=== PATIENT | female | born 1945 | race Caucasian/White ===

== ENCOUNTER 2019-04-17 17:30 | Emergency (ER) | payer MEDICARE, OTHER ==
--- NOTE | 2019-04-17 17:45 | EDM.PDOC ---
ED HPI GENERAL MEDICAL PROBLEM - General Chief Complaint: Lower Extremity Injury/Pain Stated Complaint: fall/laceration Time Seen by Provider: 04/17/19 17:30 Source of Information: Reports: Patient, EMS History Limitations: Reports: No Limitations - History of Present Illness INITIAL COMMENTS - FREE TEXT/NARRATIVE: She comes into the emergency department via with complaint of a laceration to her left knee. Patient [place] [employer] and fell on the ice causing a laceration to left knee. She did have knee replacement completed 4 weeks ago and the laceration is directly over the the suture incision of her knee replacement. Patient denies any pain, numbness or tingling, or range of motion concerns. Patient denies hitting her head or any other injuries. The patient is concerned regarding the laceration and bleeding that has occurred since the fall. Patient did last eat approximately 30 minutes ago. Patient denies any chest pain, shortness of breath, CMS concern, range of motion concerns, abdominal pain, or peripheral edema. Onset: Sudden Improves with: Reports: None Worsens with: Reports: None Context: Reports: Other Associated Symptoms: Reports: No Other Symptoms - Related Data Allergies Allergy/AdvReac Type Severity Reaction Status Date / Time No Known Allergies Allergy Verified 04/17/19 18:19 Past Medical History HEENT History: Reports: Impaired Vision Cardiovascular History: Reports: Hypertension Endocrine/Metabolic History: Reports: Diabetes, Type II - Past Surgical History Other Female Surgeries/Procedures: Bladder repair about 10 years ago Musculoskeletal Surgical History: Reports: Arthroscopic Knee ED ROS GENERAL - Review of Systems Review Of Systems: Comprehensive ROS is negative, except as noted in HPI. Constitutional: Reports: No Symptoms HEENT: Reports: No Symptoms Respiratory: Reports: No Symptoms Cardiovascular: Reports: No Symptoms Endocrine: Reports: No Symptoms GI/Abdominal: Reports: No Symptoms : Reports: No Symptoms Musculoskeletal: Reports: No Symptoms Neurological: Reports: No Symptoms Psychiatric: Reports: No Symptoms Hematologic/Lymphatic: Reports: No Symptoms Immunologic: Reports: No Symptoms ED EXAM, GENERAL - Physical Exam Exam: See Below Exam Limited By: No Limitations General Appearance: Alert, WD/WN, No Apparent Distress Head: Atraumatic, Normocephalic Neck: Normal Inspection, Supple, Non-Tender, Full Range of Motion Respiratory/Chest: No Respiratory Distress, Lungs Clear, No Accessory Muscle Use , Chest Non-Tender Cardiovascular: Normal Peripheral Pulses, Regular Rate, Rhythm, No Edema Extremities: Normal Inspection, Normal Range of Motion, Normal Capillary Refill Neurological: Alert, Oriented, No Motor/Sensory Deficits Psychiatric: Normal Affect, Normal Mood Skin Exam: Warm, Normal Color, Wound/Incision (3 inch deep tissue laceration with blood clot formation noted- no hardware is visable. CMS intact, ROM intact. ) ED GENERAL MEDICAL PROCEDURES - Laceration/Wound Repair Left Middle Knee Lac/wound length in cm: 7.6 Appearance: Muscle Distal NVT: Neuro & Vascular Intact, No Tendon Injury Anesthetic Type: Local Local Anesthesia - Lidocaine (Xylocaine): 1% with EPI Local Anesthetic Volume: 5cc Skin Prep: Saline Exploration/Debridement/Repair: Wound Explored, Explored to Base Closed with: Sutures Suture Size: 3-0 # of Sutures: 15 Suture Type: Simple Drain Placement: No Sterile Dressing Applied: Nurse Tetanus Status Addressed: Yes Complications: Yes Course - Vital Signs Last Recorded V/S: Last Vital Signs Temp 35.7 C 04/17/19 17:30 Pulse 87 04/17/19 17:30 Resp 18 04/17/19 17:30 BP 144/70 H 04/17/19 17:30 Pulse Ox 97 04/17/19 17:30 - Orders/Labs/Meds Orders: Active Orders 24 hr Category Date Time Status Knee 1V or 2V Lt [CR] Stat Exams 04/17/19 17:56 Taken Meds: Medications Discontinued Medications Generic Name Dose Route Start Last Admin Trade Name Wolf PRN Reason Stop Dose Admin Lidocaine/Epinephrine 20 ml 04/17/19 18:01 04/17/19 18:10 Xylocaine 1% With Epinephrine 1:100,000 INFILT 04/17/19 18:02 20 ml ONETIME STA Administration Departure - Departure Time of Disposition: 19:20 Disposition: Home, Self-Care 01 Condition: Good Clinical Impression: Laceration - Discharge Information *PRESCRIPTION DRUG MONITORING PROGRAM REVIEWED*: Not Applicable *COPY OF PRESCRIPTION DRUG MONITORING REPORT IN PATIENT NANCY: Not Applicable Instructions: Laceration Care, Adult, RICE Therapy for Routine Care of Injuries , [id number] Forms: ED Department Discharge Additional Instructions: 1. rest 2. elevated the extremity above the level of the heart 3. OTC medications as needed for pain and discomfort 4. keep the christiana wrap on to help with compression and decrease swelling 5. Follow up with Dr. Fox office Saturday or Saturday 6. Call with any questions or concerns 7. Return or present to [place] if symptoms progress or worsen Sepsis Event Note - Focused Exam Vital Signs: Vital Signs Temp Pulse Resp BP Pulse Ox 04/17/19 17:30 35.7 C 87 18 144/70 H 97 Date Exam was Performed: 04/17/19 Time Exam was Performed: 19:17 - Problem List Review Problem List Initiated/Reviewed/Updated: Yes - My Orders Last 24 Hours: My Active Orders 04/17/19 17:56 Knee 1V or 2V Lt [CR] Stat - Assessment/Plan Last 24 Hours: My Active Orders 04/17/19 17:56 Knee 1V or 2V Lt [CR] Stat Assessment:: 1. laceration left knee Plan: 1. Phone consultation completed with Dr. Fox who was the patient's surgeon who completed the surgery about 4 weeks ago. Recommendation after reviewing the surgical incision photo his recommendation was to place simple sutures to close the wound. If hardware was visible to contact him immediately 2. Wound base explored and no hardware is visible. No debri noted 3. Sutures completed 4. wound covering completed 5. Follow up instructions given to the patient to follow up with Dr. Taylor office Saturday or Saturday 6. She was advised to return to emergency department or present the [place] emergency room if complications did arise over the weekend regarding a left knee 7. Education provided regarding ambulation, activity, diet, follow-up visit. 8. All questions and concerns were addressed prior to discharge
[2019-04-17] MEDS ORDERED: Lidocaine 1% with EPINEPHrine 1:100,000 20 ML MDV INFILT STA (18:01)
--- NOTE | 2019-04-17 19:25 | CR ---
[id number] RAD/RAD Knee Left 1-2V EXAM: 2 VIEWS LEFT KNEE. INDICATION: FALL COMPARISON: None. DISCUSSION: No fracture, dislocation or other acute osseous abnormality. Postsurgical changes following total left knee arthroplasty. No evidence of acute hardware failure or loosening. Small left knee joint effusion. IMPRESSION: 1. NO ACUTE OSSEOUS ABNORMALITIES. Geronimo Ivy DO 04/17/19 1923 Thank you for allowing us to participate in the care of your patient.
== END 2019-04-17 19:45 | disposition home or self-care (01) ==
LOC: VM.ED 17:30
DX: S81.012A Laceration without foreign body, left knee, initial encounter (principal); I10 Essential (primary) hypertension; E11.9 Type 2 diabetes mellitus without complications; W00.0XXA Fall on same level due to ice and snow, initial encounter
CPT/HCPCS: 12002; 12004; 73560-LT; 99283-25; 99283-GF

== ENCOUNTER 2019-05-04 08:58 | Observation (INO) | payer MEDICARE, OTHER ==
[2019-05-04] MEDS ORDERED: Sodium Chloride 0.9% 10 ML Syringe FLUSH PRN (09:14)
[2019-05-04] MEDS ORDERED: ceFAZolin 2 GM in Sodium Chloride 0.9% 100 ML IV ONE (09:21)
--- NOTE | 2019-05-04 09:32 | EDM.PDOC ---
ED HPI GENERAL MEDICAL PROBLEM - General Time Seen by Provider: 05/04/19 09:00 Source of Information: Reports: Patient History Limitations: Reports: No Limitations - History of Present Illness INITIAL COMMENTS - FREE TEXT/NARRATIVE: Pt. presents to ER with surgical site drainage, pain, and redness. Pt. underwent total knee replacement on 03/22/19. Approx. 1 month later she fell, causing a laceration to her L knee with subsequent quad tear with surgical repair on . She has been convalescing at home and has noticed increased redness and surgical site drainage/swelling. Denies any fever or chills. No increased fatigue. She is currently on oxycodone for pain control. Onset: Today Onset Date: 05/04/19 Location: Reports: Lower Extremity, Left Quality: Reports: Ache, Pressure Improves with: Reports: Rest Worsens with: Reports: Movement Associated Symptoms: Denies: Fever/Chills - Related Data Allergies Allergy/AdvReac Type Severity Reaction Status Date / Time No Known Allergies Allergy Verified 05/04/19 10:09 Home Meds: Home Meds Aspirin 81 mg PO DAILY 05/04/19 [History] Calcium Carbonate/Vitamin D3 [Calcium 600 + Vit D 200] 1 each PO BID 05/04/19 [ History] Clobetasol [Clobetasol Propionate 0.05%] 1 dose TOP BID PRN 05/04/19 [History] Docusate Sodium [Colace] 100 mg PO DAILY PRN 05/04/19 [History] Latanoprost 1 drop EYEBOTH BEDTIME 05/04/19 [History] Metoprolol Succinate [Toprol XL 100mg] 100 mg PO DAILY 05/04/19 [History] Ondansetron HCl [Ondansetron] 4 mg PO Q6H PRN 05/04/19 [History] Potassium Chloride [Klor-Con M20] 20 meq PO DAILY 05/04/19 [History] Timolol Maleate 1 drop EYEBOTH BID 05/04/19 [History] Valsartan/Hydrochlorothiazide [Valsartan-Hctz 320-25 mg Tab] 1 tab PO DAILY [History] atorvaSTATin [Lipitor] 20 mg PO BEDTIME 05/04/19 [History] metFORMIN HCl [Metformin HCl ER] 750 mg PO DAILY 05/04/19 [History] oxyCODONE 1 - 2 tab PO Q4H PRN 05/04/19 [History] rOPINIRole [Requip] 0.25 mg PO BID 05/04/19 [History] Past Medical History HEENT History: Reports: Impaired Vision Cardiovascular History: Reports: Hypertension Endocrine/Metabolic History: Reports: Diabetes, Type II - Past Surgical History Other Female Surgeries/Procedures: Bladder repair about 10 years ago Musculoskeletal Surgical History: Reports: Arthroscopic Knee ED ROS GENERAL - Review of Systems Review Of Systems: See Below Constitutional: Reports: No Symptoms HEENT: Reports: No Symptoms Respiratory: Reports: No Symptoms Cardiovascular: Reports: No Symptoms Endocrine: Reports: No Symptoms GI/Abdominal: Reports: No Symptoms : Reports: No Symptoms Musculoskeletal: Reports: Leg Pain Skin: Reports: Erythema, Other (discharge) Neurological: Reports: No Symptoms Psychiatric: Reports: No Symptoms Hematologic/Lymphatic: Reports: No Symptoms Immunologic: Reports: No Symptoms ED EXAM, GENERAL - Physical Exam Exam: See Below Exam Limited By: No Limitations General Appearance: Alert, WD/WN, No Apparent Distress Throat/Mouth: Normal Inspection, Normal Lips, Normal Teeth, Normal Gums, Normal Oropharynx, Normal Voice, No Airway Compromise Head: Atraumatic, Normocephalic Neck: Normal Inspection, Supple, Non-Tender, Full Range of Motion Respiratory/Chest: No Respiratory Distress, Lungs Clear, Normal Breath Sounds, No Accessory Muscle Use, Chest Non-Tender Cardiovascular: Normal Peripheral Pulses, Regular Rate, Rhythm, No Edema, No Gallop, No JVD, No Murmur GI/Abdominal: Normal Bowel Sounds, Soft, Non-Tender, No Organomegaly, No Distention, No Mass (Female) Exam: Deferred Rectal (Female) Exam: Deferred Back Exam: Normal Inspection, Full Range of Motion Extremities: Leg Pain, Redness, Other (surgical incision with rody running vertically down mid leg/knee with purulent discharge. Surrounding cellulitis.) Neurological: Alert, Oriented, CN II-XII Intact, No Motor/Sensory Deficits Psychiatric: Normal Affect, Normal Mood Skin Exam: Warm, Dry, Other (see above) Course - Vital Signs Last Recorded V/S: Last Vital Signs Temp 37.3 C 05/04/19 09:00 Pulse 95 05/04/19 09:00 Resp 16 05/04/19 09:00 BP 113/48 L 05/04/19 09:00 Pulse Ox 97 05/04/19 09:00 - Orders/Labs/Meds Orders: Active Orders 24 hr Category Date Time Status Patient Status [ADT] Routine ADT 05/04/19 10:40 Active CULTURE BLOOD [BC] Stat Lab 05/04/19 09:28 Received CULTURE BLOOD [BC] Stat Lab 05/04/19 09:33 Received CULTURE WOUND + SMEAR [RM] Stat Lab 05/04/19 09:10 Results Sodium Chloride 0.9% [Saline Flush] Med 05/04/19 09:14 Active 10 ml FLUSH ASDIRECTED PRN Vancomycin 1.5 gm Med 05/04/19 10:45 Active Sodium Chloride 0.9% [Normal Saline (AdvBag)] 250 ml IV STAT Blood Culture x2 Reflex Set [OM.PC] Stat Oth 05/04/19 09:15 Ordered Peripheral IV Insertion Adult [OM.PC] Routine Oth 05/04/19 09:15 Ordered Medication Orders Vancomycin HCl 1.5 gm/ Sodium (Chloride) 250 mls @ 165 mls/hr IV STAT ONE Stop: 05/04/19 12:15 Sodium Chloride (Saline Flush) 10 ml FLUSH ASDIRECTED PRN PRN Reason: Keep Vein Open Labs: Laboratory Tests 05/04/19 05/04/19 05/04/19 Range/Units 09:28 09:28 09:28 WBC 14.2 H (4.0-10.0) x10^3/uL RBC 3.00 L (4.00-5.50) x10^6/uL Hgb 8.7 L (12.0-16.0) g/dL Hct 26.3 L (33.0-47.0) % MCV 87.7 (78.0-93.0) fL MCH 29.0 (26.0-32.0) pg MCHC 33.1 (32.0-36.0) g/dL RDW Coeff of Candy 13.2 (10.0-15.0) % Plt Count 552 H (130-400) x10^3/uL Add Manual Diff Yes Neutrophils % (Manual) 76 (50-80) % Band Neutrophils % 6 (0-6) % Lymphocytes % (Manual) 7 L (25-50) % Monocytes % (Manual) 8 (2-11) % Eosinophils % (Manual) 3 (0-4) % Platelet Estimate Increased H Polychromasia Rare Acanthocytes (Spur) 1+ slight H PT 11.2 (10.0-12.8) SEC INR 1.0 L (2.0-3.5) Sodium 131 L (136-145) mmol/L Potassium 3.8 (3.5-5.1) mmol/L Chloride 96 L (98-107) mmol/L Carbon Dioxide 25 (21-32) mmol/L Anion Gap 13.8 (10-20) mmol/L BUN 20 H (7-18) mg/dL Creatinine 0.9 (0.55-1.02) mg/dL Est Cr Clr Drug Dosing 46.05 mL/min Estimated GFR (MDRD) > 60 Glucose 269 H (74-106) mg/dL Lactic Acid (0.4-2.0) mmol/L Calcium 8.6 (8.5-10.1) mg/dL Corrected Calcium 9.88 (8.5-10.1) mg/dL Magnesium 1.7 L (1.8-2.4) mg/dL Total Bilirubin 0.4 (0.2-1.0) mg/dL AST 19 (15-37) U/L ALT 34 (14-59) U/L Alkaline Phosphatase 92 (46-116) U/L C-Reactive Protein 7.9 H (<=0.9) mg/dL Total Protein 6.7 (6.4-8.2) g/dL Albumin 2.4 L (3.4-5.0) g/dL Globulin 4.3 Albumin/Globulin Ratio 0.56 05/04/19 Range/Units 09:28 WBC (4.0-10.0) x10^3/uL RBC (4.00-5.50) x10^6/uL Hgb (12.0-16.0) g/dL Hct (33.0-47.0) % MCV (78.0-93.0) fL MCH (26.0-32.0) pg MCHC (32.0-36.0) g/dL RDW Coeff of Candy (10.0-15.0) % Plt Count (130-400) x10^3/uL Add Manual Diff Neutrophils % (Manual) (50-80) % Band Neutrophils % (0-6) % Lymphocytes % (Manual) (25-50) % Monocytes % (Manual) (2-11) % Eosinophils % (Manual) (0-4) % Platelet Estimate Polychromasia Acanthocytes (Spur) PT (10.0-12.8) SEC INR (2.0-3.5) Sodium (136-145) mmol/L Potassium (3.5-5.1) mmol/L Chloride (98-107) mmol/L Carbon Dioxide (21-32) mmol/L Anion Gap (10-20) mmol/L BUN (7-18) mg/dL Creatinine (0.55-1.02) mg/dL Est Cr Clr Drug Dosing mL/min Estimated GFR (MDRD) Glucose (74-106) mg/dL Lactic Acid 1.4 (0.4-2.0) mmol/L Calcium (8.5-10.1) mg/dL Corrected Calcium (8.5-10.1) mg/dL Magnesium (1.8-2.4) mg/dL Total Bilirubin (0.2-1.0) mg/dL AST (15-37) U/L ALT (14-59) U/L Alkaline Phosphatase (46-116) U/L C-Reactive Protein (<=0.9) mg/dL Total Protein (6.4-8.2) g/dL Albumin (3.4-5.0) g/dL Globulin Albumin/Globulin Ratio Meds: Medications Generic Name Dose Route Start Last Admin Trade Name Freq PRN Reason Stop Dose Admin Vancomycin HCl 1.5 gm/ Sodium 250 mls @ 165 mls/hr 05/04/19 10:45 Chloride IV 05/04/19 12:15 STAT ONE Sodium Chloride 10 ml 05/04/19 09:14 Saline Flush FLUSH ASDIRECTED PRN Keep Vein Open Discontinued Medications Generic Name Dose Route Start Last Admin Trade Name Freq PRN Reason Stop Dose Admin Cefazolin Sodium Confirm 05/04/19 09:38 05/04/19 10:49 Ancef Administered 05/04/19 09:39 Not Given Dose 1 gm .ROUTE .STK-MED ONE Cefazolin Sodium 2 gm/ Sodium 100 mls @ 400 mls/hr 05/04/19 09:21 05/04/19 09 :43 Chloride IV 05/04/19 09:35 400 mls/hr ONETIME ONE Administration Ondansetron HCl 4 mg 05/04/19 10:31 05/04/19 10:42 Zofran IVPUSH 05/04/19 10:32 4 mg ONETIME ONE Administration - Radiology Interpretation Free Text/Narrative:: There is air seen in the soft tissues of the knee x-ray. Prosthesis is intact. No other acute findings reported. Departure - Departure Time of Disposition: 10:51 Disposition: Refer to Observation Clinical Impression: Surgical site infection - Discharge Information Sepsis Event Note - Focused Exam Vital Signs: Vital Signs Temp Pulse Resp BP Pulse Ox 05/04/19 09:00 37.3 C 95 16 113/48 L 97 Date Exam was Performed: 05/04/19 Time Exam was Performed: 10:51 - My Orders Last 24 Hours: My Active Orders 05/04/19 09:10 CULTURE WOUND + SMEAR [RM] Stat 05/04/19 09:14 Sodium Chloride 0.9% [Saline Flush] 10 ml FLUSH ASDIRECTED PRN 05/04/19 09:15 Blood Culture x2 Reflex Set [OM.PC] Stat Peripheral IV Insertion Adult [OM.PC] Routine 05/04/19 09:28 CULTURE BLOOD [BC] Stat 05/04/19 09:33 CULTURE BLOOD [BC] Stat 05/04/19 10:40 Patient Status [ADT] Routine 05/04/19 10:45 Vancomycin 1.5 gm Sodium Chloride 0.9% [Normal Saline (AdvBag)] 250 ml IV STAT - Assessment/Plan Admission H&P: Please use this note as an admission H&P Last 24 Hours: My Active Orders 05/04/19 09:10 CULTURE WOUND + SMEAR [RM] Stat 05/04/19 09:14 Sodium Chloride 0.9% [Saline Flush] 10 ml FLUSH ASDIRECTED PRN 05/04/19 09:15 Blood Culture x2 Reflex Set [OM.PC] Stat Peripheral IV Insertion Adult [OM.PC] Routine 05/04/19 09:28 CULTURE BLOOD [BC] Stat 05/04/19 09:33 CULTURE BLOOD [BC] Stat 05/04/19 10:40 Patient Status [ADT] Routine 05/04/19 10:45 Vancomycin 1.5 gm Sodium Chloride 0.9% [Normal Saline (AdvBag)] 250 ml IV STAT Plan: Pt. will be admitted observation. She is code one. Pt. was given 2 gm of ancef IV in ER. She will also receive vancomycin 1.5gm IV on admit. I did discuss findings with Dr. Fox at [facility]. Will transfer the patient to [facility] [place] due to weather[place] Continue oxycodone for pain control.
[2019-05-04] MEDS ORDERED: ceFAZolin 1 GM Vial ONE (09:38)
--- NOTE | 2019-05-04 10:01 | CR ---
[id number] RAD/RAD Knee Left 1-2V EXAM: RAD Knee Left 1-2V CLINICAL DATA: SURGICAL SITE INFECTION COMPARISON: CORRELATION IS MADE WITH THE EXAM OF APRIL 17, 2019 FINDINGS: Skin rody are seen Air is seen in the soft tissues The prosthesis appears intact. IMPRESSION: INTERVAL SURGERY SINCE LAST EXAM Nile Willingham MD 05/04/19 1000 Thank you for allowing us to participate in the care of your patient.
[2019-05-04 10:08] LABS: ANION GAP 13.8 mmol/L (10-20); CHLORIDE,CL 96 mmol/L (98-107); SODIUM,NA 131 mmol/L (136-145)
[2019-05-04] MEDS ORDERED: Ondansetron 4 MG/2 ML SDV IVPUSH ONE (10:31)
[2019-05-04] MEDS ORDERED: Docusate Sodium 100 MG Cap PO PRN (11:14)
[2019-05-04] MEDS ORDERED: oxyCODONE 5 MG Tab PO PRN (11:14)
[2019-05-04] MEDS ORDERED: Aspirin 81 MG Tab.Chew PO SCH (11:15)
[2019-05-04] MEDS ORDERED: Losartan 50 MG Tab PO SCH (12:00)
[2019-05-04] MEDS ORDERED: Hydrochlorothiazide 25 MG Tab PO SCH (12:00)
[2019-05-04] MEDS ORDERED: Metoprolol Succinate 50 MG Tab.ER PO SCH (12:00)
[2019-05-04] MEDS ORDERED: Potassium Chloride 20 MEQ Tab.ER PO SCH (12:00)
[2019-05-04] MEDS ORDERED: rOPINIRole 0.5 MG Tab PO SCH (12:00)
[2019-05-04] MEDS ORDERED: metFORMIN 500 MG Tab PO SCH ×2 (12:00→12:04)
[2019-05-04] MEDS ORDERED: Ibuprofen 200 MG Tab PO ONE (13:04)
[2019-05-04] MEDS ORDERED: Latanoprost 0.005% Ophth Soln 2.5 ML Bottle EYEBOTH SCH (20:00)
[2019-05-05] MEDS ORDERED: atorvaSTATin 10 MG Tab PO SCH (20:00)
--- NOTE | 2019-05-07 00:58 | PCM.DCSUM1 ---
Discharge Summary - Hospital Course HPI Initial Comments: Pt. was admitted briefly to the floor for surgical site infection. Pt. was transferred to [facility] to be treated by Dr. Fox. Please refer to the patient's admission H and P as there was no changes to care between admission and transfer. - Discharge Data Discharge Date: 05/07/19 Discharge Disposition: DC/Tfer to Acute Hospital 02 Condition: Good - Referral to Home Health Primary Care Physician: Agnes Hairston NP - Discharge Plan Home Medications: Home Meds Aspirin 81 mg PO DAILY 05/04/19 [History] Calcium Carbonate/Vitamin D3 [Calcium 600 + Vit D 200] 1 each PO BID 05/04/19 [ History] Docusate Sodium [Colace] 100 mg PO DAILY PRN 05/04/19 [History] Gabapentin [Neurontin] 200 mg PO TID 05/04/19 [History] Latanoprost 1 drop EYEBOTH BEDTIME 05/04/19 [History] Metoprolol Succinate [Toprol XL 100mg] 100 mg PO DAILY 05/04/19 [History] Ondansetron HCl [Ondansetron] 4 mg PO Q6H PRN 05/04/19 [History] Ondansetron [Zofran ODT] 4 mg PO Q6HR PRN 05/04/19 [History] Potassium Chloride [Klor-Con M20] 20 meq PO DAILY 05/04/19 [History] Timolol Maleate 1 drop EYEBOTH BID 05/04/19 [History] Valsartan/Hydrochlorothiazide [Valsartan-Hctz 320-25 mg Tab] 1 tab PO DAILY [History] atorvaSTATin Calcium [Lipitor] 20 mg PO BEDTIME 05/04/19 [History] metFORMIN HCl [Metformin HCl ER] 750 mg PO DAILY 05/04/19 [History] oxyCODONE 1 - 2 tab PO Q4H PRN 05/04/19 [History] rOPINIRole [Requip] 0.25 mg PO BID 05/04/19 [History] Forms: Interfacility Transfer EMTALA Referrals: Agnes Hairston, [facility] [Primary Care Provider] - - Discharge Summary/Plan Comment DC Time >30 min.: Yes - General Info Date of Service: 05/04/19 Functional Status: Reports: Pain Controlled - Review of Systems General: Reports: No Symptoms HEENT: Reports: No Symptoms Pulmonary: Reports: No Symptoms Cardiovascular: Reports: No Symptoms Gastrointestinal: Reports: No Symptoms Genitourinary: Reports: No Symptoms Musculoskeletal: Reports: Leg Pain Skin: Reports: No Symptoms Neurological: Reports: No Symptoms Psychiatric: Reports: No Symptoms - Patient Data Vitals - Most Recent: Last Vital Signs Temp 36.7 C 05/04/19 14:00 Pulse 83 05/04/19 14:00 Resp 20 05/04/19 14:00 BP 130/54 L 05/04/19 14:00 Pulse Ox 98 05/04/19 14:00 Weight - Most Recent: 92.533 kg CADY Results - Last 24 hrs: Microbiology 05/04/19 09:33 Aerobic Blood Culture - Preliminary Blood - Venous - Lab Draw NO GROWTH AFTER 2 DAYS Anaerobic Blood Culture - Preliminary NO GROWTH AFTER 2 DAYS 05/04/19 09:28 Aerobic Blood Culture - Preliminary Blood - Venous NO GROWTH AFTER 2 DAYS Anaerobic Blood Culture - Preliminary NO GROWTH AFTER 2 DAYS 05/04/19 09:10 Gram Stain - Final Skin / Skin Scrapings - Knee, Left Wound Culture - Preliminary Staphylococcus Aureus Med Orders - Current: Current Medications Discontinued Medications Aspirin (Aspirin) 81 mg PO DAILY [facility] Last Admin: 05/04/19 12:19 Dose: 81 mg Atorvastatin Calcium (Lipitor) 20 mg PO BEDTIME [facility] Cefazolin Sodium (Ancef) Confirm Administered Dose 1 gm .ROUTE .STK-MED ONE Stop: 05/04/19 09:39 Last Admin: 05/04/19 10:49 Dose: Not Given Docusate Sodium (Colace) 100 mg PO DAILY PRN PRN Reason: Constipation Hydrochlorothiazide (Hydrochlorothiazide) 25 mg PO DAILY [facility] Last Admin: 05/04/19 12:23 Dose: 25 mg Cefazolin Sodium 2 gm/ Sodium (Chloride) 100 mls @ 400 mls/hr IV ONETIME ONE Stop: 05/04/19 09:35 Last Admin: 05/04/19 09:43 Dose: 400 mls/hr Vancomycin HCl 1.5 gm/ Sodium (Chloride) 250 mls @ 165 mls/hr IV STAT ONE Stop: 05/04/19 12:15 Last Admin: 05/04/19 11:15 Dose: 165 mls/hr Ibuprofen (Motrin) 600 mg PO ONETIME ONE Stop: 05/04/19 13:05 Last Admin: 05/04/19 13:21 Dose: Not Given Latanoprost (Xalatan 0.005% Ophth Soln) 0 ml EYEBOTH BEDTIME [facility] Losartan Potassium (Cozaar) 150 mg PO DAILY [facility] Last Admin: 05/04/19 12:20 Dose: 150 mg Metformin HCl (Glucophage) 375 mg PO BIDMEALS [facility] Last Admin: 05/04/19 12:25 Dose: Not Given Metformin HCl (Glucophage) 500 mg PO BIDMEALS [facility] Last Admin: 05/04/19 12:24 Dose: 500 mg Metoprolol Succinate (Toprol Xl) 100 mg PO DAILY [facility] Last Admin: 05/04/19 12:23 Dose: 100 mg Ondansetron HCl (Zofran) 4 mg IVPUSH ONETIME ONE Stop: 05/04/19 10:32 Last Admin: 05/04/19 10:42 Dose: 4 mg Oxycodone HCl (Oxycodone) 5 - 10 mg PO Q4H PRN PRN Reason: Pain Last Admin: 05/04/19 13:21 Dose: 5 mg Potassium Chloride (Klor-Con M20) 20 meq PO DAILY [facility] Last Admin: 05/04/19 12:23 Dose: 20 meq Ropinirole HCl (Requip) 0.25 mg PO BID [facility] Last Admin: 05/04/19 12:23 Dose: 0.25 mg Sodium Chloride (Saline Flush) 10 ml FLUSH ASDIRECTED PRN PRN Reason: Keep Vein Open - Exam General: Reports: Alert, Oriented HEENT: Reports: Pupils Equal, Pupils Reactive, EOMI, Mucous Membr. Moist/[place] Neck: Reports: Supple Lungs: Reports: Clear to Auscultation, Normal Respiratory Effort Cardiovascular: Reports: Regular Rate, Regular Rhythm Skin: Reports: Warm, Dry, Intact Wound/Incisions: Reports: Healing Well Neurological: Reports: No New Focal Deficit Psy/Mental Status: Reports: Alert, Normal Affect, Normal Mood
== END 2019-05-04 15:19 | disposition short-term general hospital (02) ==
LOC: VM.ED 08:58 → VM.MS 10:40
PROVIDERS: ADMIT Physician Assistant; ATTEND Physician Assistant
DX: T81.41XA Infection following a procedure, superficial incisional surgical site, initial encounter (principal); I10 Essential (primary) hypertension; E11.9 Type 2 diabetes mellitus without complications
CPT/HCPCS: 36415; 73560-LT; 80053; 82962; 83605; 83735; 85025; 85610; 86140; 87040; 87070; 87077; 87205; A9270-GY; J0690; J2405; J3370; J7050

== ENCOUNTER 2019-05-08 12:33 | Inpatient (IN) | payer MEDICARE, OTHER ==
[2019-05-08] MEDS ORDERED: Clobetasol 0.05% Crm 30 GM Tube TOP PRN (14:50)
[2019-05-08] MEDS ORDERED: CEFAZOLIN SODIUM IV SCH (16:00)
[2019-05-08] MEDS ORDERED: [UNRECOGNIZED DRUG - OTHER] IV SCH (16:00)
[2019-05-08] MEDS ORDERED: WATER IV SCH (16:00)
[2019-05-08] MEDS: Sodium Chloride 0.9% 10 ML Syringe IV SCH (16:41)
[2019-05-08] MEDS: Heparin Sodium 100 Units/ML 3 ML Syringe IVPUSH SCH (16:41)
[2019-05-08] MEDS: ceFAZolin 1 GM Vial IVPUSH SCH (16:41)
[2019-05-08] MEDS: oxyCODONE 5 MG Tab PO PRN (18:19)
[2019-05-08] MEDS: Calcium Carbonate/Vitamin D3 1250 MG-200 Unit Tab PO SCH (18:19)
[2019-05-08] MEDS: Celecoxib 100 MG Cap PO SCH (18:19)
[2019-05-08] MEDS: Acetaminophen 325 MG Tab PO PRN (18:22)
[2019-05-08] MEDS: Docusate Sodium 100 MG Cap PO SCH (19:46)
[2019-05-08] MEDS: atorvaSTATin 10 MG Tab PO SCH (19:46)
[2019-05-08] MEDS: rOPINIRole 0.5 MG Tab PO SCH (19:46)
[2019-05-08] MEDS: Aspirin 81 MG Tab.EC PO SCH (19:46)
[2019-05-08] MEDS: Metoprolol Tartrate 25 MG Tab PO SCH (19:47)
--- NOTE | 2019-05-08 20:04 | HP ---
CHIEF COMPLAINT: 1. Weakness and deconditioning. 2. Left knee pain. 3. Left knee infection. 4. History of total knee arthroplasty, left. HISTORY OF PRESENT ILLNESS: Gauri is a very pleasant 73-year-old woman who presents to the swing bed unit at [facility] for ongoing rehab secondary to weakness and deconditioning. The patient originally had a total left knee replacement for severe osteoarthritis on 03/24/2019 at [facility] per Dr. Fox. The patient did do well postoperatively, however, in mid April, she sustained a mechanical fall and required repair of her quadriceps tendon on 04/21/2019. The patient had increasing drainage from her incision site, which she had described as a yellow/green color. She also had unusual amounts of pain. There apparently was a concern for deeper infection aside from the obvious superficial incisional infection. The patient underwent I and D of the left knee as well as a quadriceps tendon repair per Dr. Fox on 05/05/2019. The patient had a wound VAC placed. The patient had a PICC line placed on 05/07/2019 for IV antibiotics, which were medically necessary due to her postop infection. The patient does not offer any specific complaints upon admission. The patient denies any pain. The patient feels that things are going well. The patient has not had any shortness of breath or chest pain. The patient is able to pivot on 1 foot. She does need to use a brace when she is ambulating. PAST MEDICAL HISTORY: 1. Arthritis. 2. Ansari cyst. 3. Diabetes mellitus. 4. Hypertension. 5. Osteoarthritis. 6. Obesity. ACTIVE PROBLEM LIST: 1. Vitreous degeneration. 2. Myopia. 3. Presbyopia. 4. Open-angle glaucoma. 5. Classical migraine. 6. Diabetes mellitus. 7. Hypertension secondary to diabetes. 8. Esophageal reflux. 9. Hyperlipidemia associated with type 2 diabetes. 10.Restless legs. 11.Right carpal tunnel syndrome. 12.Stress incontinence. 13.Quadriceps tendon rupture. 14.Wound infection post surgery. SURGICAL HISTORY: 1. Carpal tunnel release. 2. Joint replacement. 3. Right knee scope. ALLERGIES: No known allergies. SOCIAL HISTORY: The patient is . The patient does not smoke cigarettes. The patient does not consume any alcohol. FAMILY HISTORY: Noncontributory. MEDICATIONS: 1. Acetaminophen 650 mg 1 tablet p.o. every 6 hours as needed. 2. Aspirin 81 mg 1 tablet p.o. twice daily. 3. Atorvastatin 20 mg 1 tablet p.o. daily. 4. Calcium carbonate 1 tablet p.o. twice daily. 5. Cefazolin sodium 2000 mg IV every 8 hours. 6. Celebrex 200 mg 1 tablet p.o. twice daily. 7. Clobetasol 1 application topical twice daily as needed. 8. Cyclobenzaprine 10 mg 1 tablet p.o. every 8 hours as needed. 9. Docusate sodium 100 mg 1 tablet p.o. twice daily. 10.Ferrous sulfate 325 mg 1 tablet p.o. daily. 11.Hydrochlorothiazide 25 mg 1 tablet p.o. daily. 12.Latanoprost 1 drop to both eyes at bedtime. 13.Metformin 750 mg 1 tablet p.o. daily. 14.Metoprolol 12.5 mg 1 tablet p.o. twice daily. 15.Zofran 4 mg 1 tablet p.o. every 6 hours as needed. 16.Oxycodone 5 to 10 mg 1 tablet p.o. every 6 hours. 17.Potassium chloride 40 mEq 1 tablet p.o. daily. 18.Ropinirole 0.25 mg 1 tablet p.o. twice daily. 19.Timolol maleate 1 drop to both eyes twice daily. 20.Valsartan/hydrochlorothiazide 320 mg/25 mg 1 tablet p.o. daily. REVIEW OF SYSTEMS: General: Negative. Cardiac: Negative. Respiratory: Negative. GI: Negative. Musculoskeletal: See HPI. Neurologic: Negative. Skin: See HPI. PHYSICAL EXAMINATION: General: The patient is in no acute distress, the patient is cooperative, the patient is pleasant. Cardiac: Regular rate and rhythm. No murmur. Extremities: Radial pulses are +2 bilaterally. Dorsalis pedis pulse on the right is 2+. Respiratory: Clear bilaterally without wheezes, rales, or rhonchi. GI: Abdomen is soft, nontender. Bowel sounds active x4. Skin: No rashes or bruising. Musculoskeletal: Left lower extremity is immobilized at the knee. Neurologic: No gross focal deficits. ASSESSMENT: 1. Weakness. 2. Deconditioning. 3. Status post total knee arthroplasty, left. 4. Quadriceps tendon rupture. 5. Status post tendon repair. 6. Wound infection after surgery. 7. Diabetes mellitus. 8. Essential hypertension. PLAN: The patient will be admitted to the swing bed unit at [facility]. We will continue the patient on her current medications from home. The patient will have her pain controlled. We will ask Physical Therapy to see the patient to continue for rehab. Case Management will also be involved for discharge planning. The patient is a full code. DVT prophylaxis with twice daily aspirin therapy. The patient will be on a diabetic diet. The patient will be admitted for at least 30 days for IV antibiotics. This patient was seen and examined by me as an [facility] provider. TB: 05/08/2019 15:06:09 MODL: 05/08/2019 19:53:45 /[id number]
[2019-05-08] MEDS: TIMOLOL MALEATE 0.5% EYEBOTH SCH (20:24)
[2019-05-08] MEDS: LATANOPROST 0.005% EYEBOTH SCH (20:24)
[2019-05-09] MEDS: Cyclobenzaprine 10 MG Tab PO PRN ×2 (00:14→23:35)
[2019-05-09] MEDS: Sodium Chloride 0.9% 10 ML Syringe IV SCH ×4 (00:16→23:31)
[2019-05-09] MEDS: ceFAZolin 1 GM Vial IVPUSH SCH ×4 (00:16→23:32)
[2019-05-09] MEDS: Heparin Sodium 100 Units/ML 3 ML Syringe IVPUSH SCH ×4 (00:17→23:32)
[2019-05-09] MEDS: oxyCODONE 5 MG Tab PO PRN ×4 (00:32→23:33)
[2019-05-09] MEDS: Ondansetron 4 MG Tab.DIS PO PRN ×2 (08:15→18:41)
[2019-05-09] MEDS: Acetaminophen 325 MG Tab PO PRN ×3 (08:15→18:40)
[2019-05-09] MEDS: Potassium Chloride 20 MEQ Tab.ER PO SCH (08:16)
[2019-05-09] MEDS: Docusate Sodium 100 MG Cap PO SCH ×2 (08:16→19:34)
[2019-05-09] MEDS: Hydrochlorothiazide 25 MG Tab PO SCH (08:16)
[2019-05-09] MEDS: Aspirin 81 MG Tab.EC PO SCH ×2 (08:16→19:35)
[2019-05-09] MEDS: Losartan 50 MG Tab PO SCH (08:17)
[2019-05-09] MEDS: metFORMIN 500 MG Tab PO SCH ×2 (08:17→17:18)
[2019-05-09] MEDS: rOPINIRole 0.5 MG Tab PO SCH ×2 (08:17→19:35)
[2019-05-09] MEDS: Calcium Carbonate/Vitamin D3 1250 MG-200 Unit Tab PO SCH ×2 (08:17→17:18)
[2019-05-09] MEDS: Metoprolol Tartrate 25 MG Tab PO SCH ×2 (08:17→19:35)
[2019-05-09] MEDS: Celecoxib 100 MG Cap PO SCH ×2 (08:18→17:18)
[2019-05-09] MEDS: Ferrous Sulfate 325 MG Tab PO SCH (08:18)
[2019-05-09] MEDS: TIMOLOL MALEATE 0.5% EYEBOTH SCH ×2 (08:18→20:55)
[2019-05-09] MEDS: atorvaSTATin 10 MG Tab PO SCH (19:34)
[2019-05-09] MEDS: LATANOPROST 0.005% EYEBOTH SCH (21:00)
[2019-05-09] MEDS: Sodium Chloride 0.9% 10 ML Syringe IV PRN (23:33)
[2019-05-10] MEDS: Heparin Sodium 100 Units/ML 3 ML Syringe IVPUSH SCH ×3 (08:26→23:41)
[2019-05-10] MEDS: Losartan 50 MG Tab PO SCH (08:27)
[2019-05-10] MEDS: rOPINIRole 0.5 MG Tab PO SCH ×2 (08:27→19:35)
[2019-05-10] MEDS: Celecoxib 100 MG Cap PO SCH ×2 (08:27→18:06)
[2019-05-10] MEDS: ceFAZolin 1 GM Vial IVPUSH SCH ×3 (08:27→23:41)
[2019-05-10] MEDS: Metoprolol Tartrate 25 MG Tab PO SCH ×2 (08:28→19:35)
[2019-05-10] MEDS: Potassium Chloride 20 MEQ Tab.ER PO SCH (08:28)
[2019-05-10] MEDS: Aspirin 81 MG Tab.EC PO SCH ×2 (08:28→19:35)
[2019-05-10] MEDS: metFORMIN 500 MG Tab PO SCH ×2 (08:28→18:06)
[2019-05-10] MEDS: Hydrochlorothiazide 25 MG Tab PO SCH (08:28)
[2019-05-10] MEDS: Docusate Sodium 100 MG Cap PO SCH ×2 (08:28→19:35)
[2019-05-10] MEDS: Ferrous Sulfate 325 MG Tab PO SCH (08:28)
[2019-05-10] MEDS: Calcium Carbonate/Vitamin D3 1250 MG-200 Unit Tab PO SCH ×2 (08:29→18:06)
[2019-05-10] MEDS: Acetaminophen 325 MG Tab PO PRN ×2 (08:29→18:05)
[2019-05-10] MEDS: Sodium Chloride 0.9% 10 ML Syringe IV SCH ×3 (08:29→23:41)
[2019-05-10] MEDS: TIMOLOL MALEATE 0.5% EYEBOTH SCH ×2 (08:30→19:39)
[2019-05-10] MEDS: Ondansetron 4 MG Tab.DIS PO PRN (18:06)
[2019-05-10] MEDS: oxyCODONE 5 MG Tab PO PRN ×2 (18:06→23:42)
[2019-05-10] MEDS: atorvaSTATin 10 MG Tab PO SCH (19:35)
[2019-05-10] MEDS: LATANOPROST 0.005% EYEBOTH SCH (19:38)
[2019-05-10] MEDS: Sodium Chloride 0.9% 10 ML Syringe IV PRN (23:41)
[2019-05-10] MEDS: Cyclobenzaprine 10 MG Tab PO PRN (23:42)
[2019-05-11] MEDS: Metoprolol Tartrate 25 MG Tab PO SCH ×2 (08:40→19:19)
[2019-05-11] MEDS: rOPINIRole 0.5 MG Tab PO SCH ×2 (08:40→19:18)
[2019-05-11] MEDS: ceFAZolin 1 GM Vial IVPUSH SCH ×3 (08:40→23:43)
[2019-05-11] MEDS: Calcium Carbonate/Vitamin D3 1250 MG-200 Unit Tab PO SCH ×2 (08:41→17:46)
[2019-05-11] MEDS: Potassium Chloride 20 MEQ Tab.ER PO SCH (08:41)
[2019-05-11] MEDS: Docusate Sodium 100 MG Cap PO SCH ×2 (08:41→19:18)
[2019-05-11] MEDS: Hydrochlorothiazide 25 MG Tab PO SCH (08:41)
[2019-05-11] MEDS: metFORMIN 500 MG Tab PO SCH ×2 (08:41→17:46)
[2019-05-11] MEDS: Celecoxib 100 MG Cap PO SCH ×2 (08:42→17:45)
[2019-05-11] MEDS: Aspirin 81 MG Tab.EC PO SCH ×2 (08:42→19:19)
[2019-05-11] MEDS: Ferrous Sulfate 325 MG Tab PO SCH (08:42)
[2019-05-11] MEDS: Losartan 50 MG Tab PO SCH (08:42)
[2019-05-11] MEDS: Heparin Sodium 100 Units/ML 3 ML Syringe IVPUSH SCH ×3 (08:42→23:48)
[2019-05-11] MEDS: Sodium Chloride 0.9% 10 ML Syringe IV SCH ×3 (08:43→23:48)
[2019-05-11] MEDS: TIMOLOL MALEATE 0.5% EYEBOTH SCH ×2 (08:47→19:21)
[2019-05-11] MEDS: oxyCODONE 5 MG Tab PO PRN ×2 (17:50→23:47)
[2019-05-11] MEDS: Cyclobenzaprine 10 MG Tab PO PRN (17:50)
[2019-05-11] MEDS: atorvaSTATin 10 MG Tab PO SCH (19:18)
[2019-05-11] MEDS: Acetaminophen 325 MG Tab PO PRN (19:20)
[2019-05-11] MEDS: LATANOPROST 0.005% EYEBOTH SCH (19:21)
[2019-05-11] MEDS: Sodium Chloride 0.9% 10 ML Syringe IV PRN (19:24)
[2019-05-12] MEDS: Heparin Sodium 100 Units/ML 3 ML Syringe IVPUSH PRN (06:18)
[2019-05-12] MEDS: Sodium Chloride 0.9% 10 ML Syringe IV PRN ×2 (06:18→19:27)
[2019-05-12] MEDS: TIMOLOL MALEATE 0.5% EYEBOTH SCH ×2 (08:25→19:25)
[2019-05-12] MEDS: ceFAZolin 1 GM Vial IVPUSH SCH ×2 (08:25→16:57)
[2019-05-12] MEDS: Sodium Chloride 0.9% 10 ML Syringe IV SCH ×2 (08:26→16:58)
[2019-05-12] MEDS: Potassium Chloride 20 MEQ Tab.ER PO SCH (08:26)
[2019-05-12] MEDS: Acetaminophen 325 MG Tab PO PRN ×2 (08:26→16:58)
[2019-05-12] MEDS: Calcium Carbonate/Vitamin D3 1250 MG-200 Unit Tab PO SCH ×2 (08:26→17:00)
[2019-05-12] MEDS: Heparin Sodium 100 Units/ML 3 ML Syringe IVPUSH SCH ×2 (08:26→16:58)
[2019-05-12] MEDS: Celecoxib 100 MG Cap PO SCH ×2 (08:26→17:00)
[2019-05-12] MEDS: Aspirin 81 MG Tab.EC PO SCH ×2 (08:27→19:23)
[2019-05-12] MEDS: Hydrochlorothiazide 25 MG Tab PO SCH (08:27)
[2019-05-12] MEDS: Losartan 50 MG Tab PO SCH (08:27)
[2019-05-12] MEDS: Metoprolol Tartrate 25 MG Tab PO SCH ×2 (08:27→19:22)
[2019-05-12] MEDS: Docusate Sodium 100 MG Cap PO SCH ×2 (08:27→19:22)
[2019-05-12] MEDS: Ferrous Sulfate 325 MG Tab PO SCH (08:27)
[2019-05-12] MEDS: metFORMIN 500 MG Tab PO SCH ×2 (08:27→17:00)
[2019-05-12] MEDS: rOPINIRole 0.5 MG Tab PO SCH ×2 (08:28→19:23)
[2019-05-12] MEDS: Ondansetron 4 MG Tab.DIS PO PRN (08:34)
[2019-05-12 10:10] LABS: CHLORIDE,CL 100 mmol/L (98-107); SODIUM,NA 137 mmol/L (136-145)
[2019-05-12 10:11] LABS: ANION GAP 13.2 mmol/L (10-20)
[2019-05-12] MEDS: oxyCODONE 5 MG Tab PO PRN (18:29)
[2019-05-12] MEDS: atorvaSTATin 10 MG Tab PO SCH (19:22)
[2019-05-12] MEDS: Cyclobenzaprine 10 MG Tab PO PRN (19:23)
[2019-05-12] MEDS: LATANOPROST 0.005% EYEBOTH SCH (19:25)
[2019-05-13] MEDS: Heparin Sodium 100 Units/ML 3 ML Syringe IVPUSH SCH ×3 (00:03→17:23)
[2019-05-13] MEDS: ceFAZolin 1 GM Vial IVPUSH SCH ×3 (00:03→17:23)
[2019-05-13] MEDS: Sodium Chloride 0.9% 10 ML Syringe IV SCH ×3 (00:03→17:23)
[2019-05-13] MEDS: oxyCODONE 5 MG Tab PO PRN ×2 (00:04→18:02)
[2019-05-13] MEDS: TIMOLOL MALEATE 0.5% EYEBOTH SCH ×2 (07:37→20:07)
[2019-05-13] MEDS: Celecoxib 100 MG Cap PO SCH ×2 (07:38→17:23)
[2019-05-13] MEDS: Aspirin 81 MG Tab.EC PO SCH ×2 (07:38→20:07)
[2019-05-13] MEDS: Docusate Sodium 100 MG Cap PO SCH ×2 (07:38→20:06)
[2019-05-13] MEDS: Ferrous Sulfate 325 MG Tab PO SCH (07:38)
[2019-05-13] MEDS: rOPINIRole 0.5 MG Tab PO SCH ×2 (07:38→20:06)
[2019-05-13] MEDS: Hydrochlorothiazide 25 MG Tab PO SCH (07:38)
[2019-05-13] MEDS: Losartan 50 MG Tab PO SCH (07:38)
[2019-05-13] MEDS: Potassium Chloride 20 MEQ Tab.ER PO SCH (07:39)
[2019-05-13] MEDS: Acetaminophen 325 MG Tab PO PRN ×2 (07:39→18:01)
[2019-05-13] MEDS: Metoprolol Tartrate 25 MG Tab PO SCH ×2 (07:39→20:06)
[2019-05-13] MEDS: metFORMIN 500 MG Tab PO SCH ×2 (07:39→17:23)
[2019-05-13] MEDS: Calcium Carbonate/Vitamin D3 1250 MG-200 Unit Tab PO SCH ×2 (07:39→17:24)
[2019-05-13] MEDS: Ondansetron 4 MG Tab.DIS PO PRN (18:02)
[2019-05-13] MEDS: atorvaSTATin 10 MG Tab PO SCH (20:05)
[2019-05-13] MEDS: Cyclobenzaprine 10 MG Tab PO PRN (20:06)
[2019-05-13] MEDS: LATANOPROST 0.005% EYEBOTH SCH (20:07)
[2019-05-13] MEDS: Sodium Chloride 0.9% 10 ML Syringe IV PRN (20:18)
[2019-05-14] MEDS: oxyCODONE 5 MG Tab PO PRN ×2 (00:03→17:52)
[2019-05-14] MEDS: Sodium Chloride 0.9% 10 ML Syringe IV SCH ×3 (00:03→17:20)
[2019-05-14] MEDS: ceFAZolin 1 GM Vial IVPUSH SCH ×3 (00:03→17:20)
[2019-05-14] MEDS: Heparin Sodium 100 Units/ML 3 ML Syringe IVPUSH SCH ×3 (00:05→17:20)
[2019-05-14] MEDS: rOPINIRole 0.5 MG Tab PO SCH ×2 (09:41→20:07)
[2019-05-14] MEDS: Acetaminophen 325 MG Tab PO PRN ×3 (09:42→17:51)
[2019-05-14] MEDS: Celecoxib 100 MG Cap PO SCH ×2 (09:43→17:20)
[2019-05-14] MEDS: Docusate Sodium 100 MG Cap PO SCH ×2 (09:43→20:07)
[2019-05-14] MEDS: Potassium Chloride 20 MEQ Tab.ER PO SCH (09:44)
[2019-05-14] MEDS: metFORMIN 500 MG Tab PO SCH ×2 (09:44→17:19)
[2019-05-14] MEDS: Metoprolol Tartrate 25 MG Tab PO SCH ×2 (09:45→21:30)
[2019-05-14] MEDS: Calcium Carbonate/Vitamin D3 1250 MG-200 Unit Tab PO SCH ×2 (09:45→17:19)
[2019-05-14] MEDS: Losartan 50 MG Tab PO SCH (09:45)
[2019-05-14] MEDS: Aspirin 81 MG Tab.EC PO SCH ×2 (09:46→20:08)
[2019-05-14] MEDS: Hydrochlorothiazide 25 MG Tab PO SCH (09:46)
[2019-05-14] MEDS: Ferrous Sulfate 325 MG Tab PO SCH (09:46)
[2019-05-14] MEDS: TIMOLOL MALEATE 0.5% EYEBOTH SCH ×2 (09:48→20:14)
[2019-05-14] MEDS: Cyclobenzaprine 10 MG Tab PO PRN (14:23)
[2019-05-14] MEDS: Polyethylene Glycol 3350 Powder 17 GM Packet PO PRN (17:51)
[2019-05-14] MEDS: atorvaSTATin 10 MG Tab PO SCH (20:08)
[2019-05-14] MEDS: LATANOPROST 0.005% EYEBOTH SCH (20:15)
[2019-05-15] MEDS: oxyCODONE 5 MG Tab PO PRN ×2 (02:14→18:09)
[2019-05-15] MEDS: ceFAZolin 1 GM Vial IVPUSH SCH ×3 (02:17→16:10)
[2019-05-15] MEDS: Sodium Chloride 0.9% 10 ML Syringe IV SCH ×3 (02:18→16:10)
[2019-05-15] MEDS: Heparin Sodium 100 Units/ML 3 ML Syringe IVPUSH SCH ×3 (02:19→16:10)
[2019-05-15] MEDS: Metoprolol Tartrate 25 MG Tab PO SCH ×2 (09:05→20:54)
[2019-05-15] MEDS: rOPINIRole 0.5 MG Tab PO SCH ×2 (09:06→20:08)
[2019-05-15] MEDS: Ferrous Sulfate 325 MG Tab PO SCH (09:06)
[2019-05-15] MEDS: Docusate Sodium 100 MG Cap PO SCH ×2 (09:06→20:09)
[2019-05-15] MEDS: Losartan 50 MG Tab PO SCH (09:07)
[2019-05-15] MEDS: Potassium Chloride 20 MEQ Tab.ER PO SCH (09:07)
[2019-05-15] MEDS: Aspirin 81 MG Tab.EC PO SCH ×2 (09:08→20:10)
[2019-05-15] MEDS: Hydrochlorothiazide 25 MG Tab PO SCH (09:08)
[2019-05-15] MEDS: Calcium Carbonate/Vitamin D3 1250 MG-200 Unit Tab PO SCH ×2 (09:09→18:11)
[2019-05-15] MEDS: Celecoxib 100 MG Cap PO SCH ×2 (09:09→18:11)
[2019-05-15] MEDS: metFORMIN 500 MG Tab PO SCH ×2 (09:09→18:09)
[2019-05-15] MEDS: TIMOLOL MALEATE 0.5% EYEBOTH SCH ×2 (09:11→20:48)
[2019-05-15] MEDS: Acetaminophen 325 MG Tab PO PRN ×2 (13:20→18:11)
[2019-05-15] MEDS: Cyclobenzaprine 10 MG Tab PO PRN (13:20)
[2019-05-15] MEDS: Polyethylene Glycol 3350 Powder 17 GM Packet PO PRN (18:12)
[2019-05-15] MEDS: atorvaSTATin 10 MG Tab PO SCH (20:09)
[2019-05-15] MEDS: LATANOPROST 0.005% EYEBOTH SCH (20:47)
[2019-05-16] MEDS: oxyCODONE 5 MG Tab PO PRN ×2 (00:37→18:00)
[2019-05-16] MEDS: ceFAZolin 1 GM Vial IVPUSH SCH ×3 (00:39→15:44)
[2019-05-16] MEDS: Sodium Chloride 0.9% 10 ML Syringe IV SCH ×3 (00:40→15:45)
[2019-05-16] MEDS: Heparin Sodium 100 Units/ML 3 ML Syringe IVPUSH SCH ×3 (00:40→15:45)
[2019-05-16] MEDS: Losartan 50 MG Tab PO SCH (07:31)
[2019-05-16] MEDS: Potassium Chloride 20 MEQ Tab.ER PO SCH (07:32)
[2019-05-16] MEDS: Docusate Sodium 100 MG Cap PO SCH ×2 (07:33→21:00)
[2019-05-16] MEDS: Calcium Carbonate/Vitamin D3 1250 MG-200 Unit Tab PO SCH ×2 (07:33→18:01)
[2019-05-16] MEDS: Metoprolol Tartrate 25 MG Tab PO SCH ×2 (07:33→19:35)
[2019-05-16] MEDS: metFORMIN 500 MG Tab PO SCH ×2 (07:33→18:01)
[2019-05-16] MEDS: Ferrous Sulfate 325 MG Tab PO SCH (07:34)
[2019-05-16] MEDS: Aspirin 81 MG Tab.EC PO SCH ×2 (07:34→19:35)
[2019-05-16] MEDS: rOPINIRole 0.5 MG Tab PO SCH ×2 (07:35→19:35)
[2019-05-16] MEDS: Celecoxib 100 MG Cap PO SCH ×2 (07:35→18:01)
[2019-05-16] MEDS: Hydrochlorothiazide 25 MG Tab PO SCH (07:35)
[2019-05-16] MEDS: Acetaminophen 325 MG Tab PO PRN ×2 (07:36→18:02)
[2019-05-16] MEDS: TIMOLOL MALEATE 0.5% EYEBOTH SCH ×2 (08:09→20:59)
[2019-05-16] MEDS: Polyethylene Glycol 3350 Powder 17 GM Packet PO PRN (18:00)
[2019-05-16] MEDS: atorvaSTATin 10 MG Tab PO SCH (19:34)
[2019-05-16] MEDS: LATANOPROST 0.005% EYEBOTH SCH (20:59)
[2019-05-17] MEDS: ceFAZolin 1 GM Vial IVPUSH SCH ×4 (00:07→23:59)
[2019-05-17] MEDS: Heparin Sodium 100 Units/ML 3 ML Syringe IVPUSH SCH ×4 (00:08→23:59)
[2019-05-17] MEDS: Sodium Chloride 0.9% 10 ML Syringe IV SCH ×4 (00:08→23:59)
[2019-05-17] MEDS: oxyCODONE 5 MG Tab PO PRN ×3 (00:27→23:58)
[2019-05-17] MEDS: Losartan 50 MG Tab PO SCH (08:00)
[2019-05-17] MEDS: Calcium Carbonate/Vitamin D3 1250 MG-200 Unit Tab PO SCH ×2 (08:01→17:59)
[2019-05-17] MEDS: rOPINIRole 0.5 MG Tab PO SCH ×2 (08:01→19:33)
[2019-05-17] MEDS: metFORMIN 500 MG Tab PO SCH ×2 (08:01→18:01)
[2019-05-17] MEDS: Metoprolol Tartrate 25 MG Tab PO SCH ×2 (08:02→19:35)
[2019-05-17] MEDS: Potassium Chloride 20 MEQ Tab.ER PO SCH (08:02)
[2019-05-17] MEDS: Aspirin 81 MG Tab.EC PO SCH ×2 (08:02→19:35)
[2019-05-17] MEDS: Celecoxib 100 MG Cap PO SCH ×2 (08:03→17:59)
[2019-05-17] MEDS: Hydrochlorothiazide 25 MG Tab PO SCH (08:03)
[2019-05-17] MEDS: Docusate Sodium 100 MG Cap PO SCH ×2 (08:03→19:36)
[2019-05-17] MEDS: Ferrous Sulfate 325 MG Tab PO SCH (08:03)
[2019-05-17] MEDS: TIMOLOL MALEATE 0.5% EYEBOTH SCH ×2 (08:05→19:37)
[2019-05-17] MEDS: Polyethylene Glycol 3350 Powder 17 GM Packet PO PRN (17:57)
[2019-05-17] MEDS: Sodium Chloride 0.9% 10 ML Syringe IV PRN (19:33)
[2019-05-17] MEDS: atorvaSTATin 10 MG Tab PO SCH (19:34)
[2019-05-17] MEDS: Cyclobenzaprine 10 MG Tab PO PRN (19:35)
[2019-05-17] MEDS: LATANOPROST 0.005% EYEBOTH SCH (19:37)
[2019-05-18] MEDS: ceFAZolin 1 GM Vial IVPUSH SCH ×3 (07:53→23:29)
[2019-05-18] MEDS: Celecoxib 100 MG Cap PO SCH ×2 (07:54→17:33)
[2019-05-18] MEDS: Calcium Carbonate/Vitamin D3 1250 MG-200 Unit Tab PO SCH ×2 (07:54→17:34)
[2019-05-18] MEDS: Potassium Chloride 20 MEQ Tab.ER PO SCH (07:54)
[2019-05-18] MEDS: Ferrous Sulfate 325 MG Tab PO SCH (07:54)
[2019-05-18] MEDS: Heparin Sodium 100 Units/ML 3 ML Syringe IVPUSH SCH ×3 (07:54→23:29)
[2019-05-18] MEDS: Docusate Sodium 100 MG Cap PO SCH ×2 (07:55→19:35)
[2019-05-18] MEDS: metFORMIN 500 MG Tab PO SCH ×2 (07:55→17:34)
[2019-05-18] MEDS: Losartan 50 MG Tab PO SCH (07:55)
[2019-05-18] MEDS: Hydrochlorothiazide 25 MG Tab PO SCH (07:55)
[2019-05-18] MEDS: Metoprolol Tartrate 25 MG Tab PO SCH ×2 (07:56→19:36)
[2019-05-18] MEDS: rOPINIRole 0.5 MG Tab PO SCH ×2 (07:56→19:35)
[2019-05-18] MEDS: Aspirin 81 MG Tab.EC PO SCH ×2 (07:57→19:36)
[2019-05-18] MEDS: TIMOLOL MALEATE 0.5% EYEBOTH SCH ×2 (09:23→19:33)
[2019-05-18] MEDS: Sodium Chloride 0.9% 10 ML Syringe IV SCH ×3 (09:24→23:29)
[2019-05-18] MEDS: Sodium Chloride 0.9% 10 ML Syringe FLUSH SCH ×2 (09:24→19:37)
[2019-05-18] MEDS: oxyCODONE 5 MG Tab PO PRN ×2 (18:44→23:29)
[2019-05-18] MEDS: Acetaminophen 325 MG Tab PO PRN (18:45)
[2019-05-18] MEDS: LATANOPROST 0.005% EYEBOTH SCH (19:33)
[2019-05-18] MEDS: Cyclobenzaprine 10 MG Tab PO PRN (19:34)
[2019-05-18] MEDS: atorvaSTATin 10 MG Tab PO SCH (19:34)
[2019-05-19] MEDS: Metoprolol Tartrate 25 MG Tab PO SCH ×2 (08:38→19:46)
[2019-05-19] MEDS: Losartan 50 MG Tab PO SCH (08:38)
[2019-05-19] MEDS: metFORMIN 500 MG Tab PO SCH ×2 (08:39→17:59)
[2019-05-19] MEDS: Calcium Carbonate/Vitamin D3 1250 MG-200 Unit Tab PO SCH ×2 (08:39→17:59)
[2019-05-19] MEDS: Ferrous Sulfate 325 MG Tab PO SCH (08:39)
[2019-05-19] MEDS: rOPINIRole 0.5 MG Tab PO SCH ×2 (08:39→19:46)
[2019-05-19] MEDS: Celecoxib 100 MG Cap PO SCH ×2 (08:39→17:59)
[2019-05-19] MEDS: ceFAZolin 1 GM Vial IVPUSH SCH ×2 (08:39→15:58)
[2019-05-19] MEDS: Hydrochlorothiazide 25 MG Tab PO SCH (08:39)
[2019-05-19] MEDS: Docusate Sodium 100 MG Cap PO SCH ×2 (08:39→19:46)
[2019-05-19] MEDS: Sodium Chloride 0.9% 10 ML Syringe IV SCH ×2 (08:40→15:58)
[2019-05-19] MEDS: Heparin Sodium 100 Units/ML 3 ML Syringe IVPUSH SCH ×2 (08:40→15:58)
[2019-05-19] MEDS: Aspirin 81 MG Tab.EC PO SCH ×2 (08:40→19:45)
[2019-05-19] MEDS: Potassium Chloride 20 MEQ Tab.ER PO SCH (08:40)
[2019-05-19] MEDS: Sodium Chloride 0.9% 10 ML Syringe FLUSH SCH (08:40)
[2019-05-19] MEDS: TIMOLOL MALEATE 0.5% EYEBOTH SCH (11:13)
[2019-05-19] MEDS: oxyCODONE 5 MG Tab PO PRN (17:58)
[2019-05-19] MEDS: Acetaminophen 325 MG Tab PO PRN (17:59)
[2019-05-19] MEDS: atorvaSTATin 10 MG Tab PO SCH (19:45)
[2019-05-20] MEDS: Sodium Chloride 0.9% 10 ML Syringe FLUSH SCH ×3 (00:08→19:28)
[2019-05-20] MEDS: TIMOLOL MALEATE 0.5% EYEBOTH SCH ×3 (00:08→19:25)
[2019-05-20] MEDS: LATANOPROST 0.005% EYEBOTH SCH ×2 (00:09→19:25)
[2019-05-20] MEDS: Heparin Sodium 100 Units/ML 3 ML Syringe IVPUSH SCH ×4 (00:09→23:45)
[2019-05-20] MEDS: ceFAZolin 1 GM Vial IVPUSH SCH ×4 (00:09→23:44)
[2019-05-20] MEDS: Sodium Chloride 0.9% 10 ML Syringe IV SCH ×4 (00:09→23:45)
[2019-05-20] MEDS: Heparin Sodium 100 Units/ML 3 ML Syringe IVPUSH PRN (00:09)
[2019-05-20] MEDS: oxyCODONE 5 MG Tab PO PRN ×3 (00:17→23:45)
[2019-05-20] MEDS: Cyclobenzaprine 10 MG Tab PO PRN ×2 (00:17→19:25)
[2019-05-20] MEDS: Hydrochlorothiazide 25 MG Tab PO SCH (08:21)
[2019-05-20] MEDS: rOPINIRole 0.5 MG Tab PO SCH ×2 (08:21→19:26)
[2019-05-20] MEDS: Losartan 50 MG Tab PO SCH (08:21)
[2019-05-20] MEDS: Metoprolol Tartrate 25 MG Tab PO SCH ×2 (08:21→19:26)
[2019-05-20] MEDS: Acetaminophen 325 MG Tab PO PRN ×2 (08:22→18:12)
[2019-05-20] MEDS: Celecoxib 100 MG Cap PO SCH ×2 (08:22→18:10)
[2019-05-20] MEDS: Ferrous Sulfate 325 MG Tab PO SCH (08:22)
[2019-05-20] MEDS: metFORMIN 500 MG Tab PO SCH ×2 (08:22→18:10)
[2019-05-20] MEDS: Calcium Carbonate/Vitamin D3 1250 MG-200 Unit Tab PO SCH ×2 (08:22→18:10)
[2019-05-20] MEDS: Potassium Chloride 20 MEQ Tab.ER PO SCH (08:22)
[2019-05-20] MEDS: Aspirin 81 MG Tab.EC PO SCH ×2 (08:22→19:26)
[2019-05-20] MEDS: Docusate Sodium 100 MG Cap PO SCH ×2 (08:22→19:25)
[2019-05-20] MEDS: atorvaSTATin 10 MG Tab PO SCH (19:25)
[2019-05-21] MEDS: ceFAZolin 1 GM Vial IVPUSH SCH ×3 (08:33→23:51)
[2019-05-21] MEDS: Potassium Chloride 20 MEQ Tab.ER PO SCH (08:33)
[2019-05-21] MEDS: Heparin Sodium 100 Units/ML 3 ML Syringe IVPUSH SCH ×2 (08:33→17:17)
[2019-05-21] MEDS: Ferrous Sulfate 325 MG Tab PO SCH (08:33)
[2019-05-21] MEDS: Losartan 50 MG Tab PO SCH (08:33)
[2019-05-21] MEDS: Calcium Carbonate/Vitamin D3 1250 MG-200 Unit Tab PO SCH ×2 (08:33→17:18)
[2019-05-21] MEDS: Acetaminophen 325 MG Tab PO PRN ×3 (08:33→23:51)
[2019-05-21] MEDS: rOPINIRole 0.5 MG Tab PO SCH ×3 (08:34→19:47)
[2019-05-21] MEDS: metFORMIN 500 MG Tab PO SCH ×2 (08:34→17:18)
[2019-05-21] MEDS: Docusate Sodium 100 MG Cap PO SCH ×2 (08:34→19:46)
[2019-05-21] MEDS: Celecoxib 100 MG Cap PO SCH ×2 (08:34→17:18)
[2019-05-21] MEDS: Metoprolol Tartrate 25 MG Tab PO SCH ×2 (08:34→19:47)
[2019-05-21] MEDS: Sodium Chloride 0.9% 10 ML Syringe FLUSH SCH ×2 (08:35→19:46)
[2019-05-21] MEDS: Hydrochlorothiazide 25 MG Tab PO SCH (08:35)
[2019-05-21] MEDS: Sodium Chloride 0.9% 10 ML Syringe IV SCH ×3 (08:35→23:51)
[2019-05-21] MEDS: Aspirin 81 MG Tab.EC PO SCH ×2 (08:35→19:50)
[2019-05-21] MEDS: TIMOLOL MALEATE 0.5% EYEBOTH SCH ×2 (08:35→19:47)
[2019-05-21] MEDS: oxyCODONE 5 MG Tab PO PRN ×2 (17:26→23:49)
[2019-05-21] MEDS: atorvaSTATin 10 MG Tab PO SCH (19:46)
[2019-05-21] MEDS: Cyclobenzaprine 10 MG Tab PO PRN (19:46)
[2019-05-21] MEDS: LATANOPROST 0.005% EYEBOTH SCH (19:47)
[2019-05-22] MEDS: Celecoxib 100 MG Cap PO SCH ×2 (09:10→18:13)
[2019-05-22] MEDS: ceFAZolin 1 GM Vial IVPUSH SCH ×3 (09:10→23:43)
[2019-05-22] MEDS: metFORMIN 500 MG Tab PO SCH ×2 (09:11→18:13)
[2019-05-22] MEDS: Ferrous Sulfate 325 MG Tab PO SCH (09:11)
[2019-05-22] MEDS: Potassium Chloride 20 MEQ Tab.ER PO SCH (09:11)
[2019-05-22] MEDS: rOPINIRole 0.5 MG Tab PO SCH ×2 (09:11→19:14)
[2019-05-22] MEDS: Hydrochlorothiazide 25 MG Tab PO SCH (09:11)
[2019-05-22] MEDS: Calcium Carbonate/Vitamin D3 1250 MG-200 Unit Tab PO SCH ×2 (09:11→18:13)
[2019-05-22] MEDS: Aspirin 81 MG Tab.EC PO SCH ×2 (09:12→19:14)
[2019-05-22] MEDS: Losartan 50 MG Tab PO SCH (09:12)
[2019-05-22] MEDS: Docusate Sodium 100 MG Cap PO SCH ×2 (09:12→19:14)
[2019-05-22] MEDS: Metoprolol Tartrate 25 MG Tab PO SCH ×2 (09:12→19:15)
[2019-05-22] MEDS: Sodium Chloride 0.9% 10 ML Syringe FLUSH SCH ×2 (09:13→19:17)
[2019-05-22] MEDS: Sodium Chloride 0.9% 10 ML Syringe IV SCH ×3 (09:13→23:43)
[2019-05-22] MEDS: TIMOLOL MALEATE 0.5% EYEBOTH SCH ×2 (09:32→19:31)
[2019-05-22] MEDS: Acetaminophen 325 MG Tab PO PRN ×2 (18:12→23:43)
[2019-05-22] MEDS: oxyCODONE 5 MG Tab PO PRN ×2 (18:13→23:46)
[2019-05-22] MEDS: atorvaSTATin 10 MG Tab PO SCH (19:14)
[2019-05-22] MEDS: Cyclobenzaprine 10 MG Tab PO PRN (19:14)
[2019-05-22] MEDS: LATANOPROST 0.005% EYEBOTH SCH (19:31)
[2019-05-23] MEDS: Aspirin 81 MG Tab.EC PO SCH ×2 (08:14→20:20)
[2019-05-23] MEDS: Celecoxib 100 MG Cap PO SCH ×2 (08:14→17:36)
[2019-05-23] MEDS: rOPINIRole 0.5 MG Tab PO SCH ×2 (08:14→20:21)
[2019-05-23] MEDS: Losartan 50 MG Tab PO SCH (08:14)
[2019-05-23] MEDS: metFORMIN 500 MG Tab PO SCH ×2 (08:14→17:37)
[2019-05-23] MEDS: Hydrochlorothiazide 25 MG Tab PO SCH (08:15)
[2019-05-23] MEDS: Ferrous Sulfate 325 MG Tab PO SCH (08:15)
[2019-05-23] MEDS: Potassium Chloride 20 MEQ Tab.ER PO SCH (08:15)
[2019-05-23] MEDS: Calcium Carbonate/Vitamin D3 1250 MG-200 Unit Tab PO SCH ×2 (08:15→17:36)
[2019-05-23] MEDS: Metoprolol Tartrate 25 MG Tab PO SCH ×2 (08:15→20:18)
[2019-05-23] MEDS: Docusate Sodium 100 MG Cap PO SCH ×2 (08:15→20:20)
[2019-05-23] MEDS: ceFAZolin 1 GM Vial IVPUSH SCH ×2 (08:16→15:46)
[2019-05-23] MEDS: Sodium Chloride 0.9% 10 ML Syringe FLUSH SCH ×2 (08:16→21:25)
[2019-05-23] MEDS: TIMOLOL MALEATE 0.5% EYEBOTH SCH ×2 (08:16→20:20)
[2019-05-23] MEDS: Sodium Chloride 0.9% 10 ML Syringe IV SCH ×2 (08:16→15:46)
[2019-05-23] MEDS: Heparin Sodium 100 Units/ML 3 ML Syringe IVPUSH SCH ×2 (08:16→15:46)
[2019-05-23] MEDS: Acetaminophen 325 MG Tab PO PRN (17:36)
[2019-05-23] MEDS: oxyCODONE 5 MG Tab PO PRN (17:36)
[2019-05-23] MEDS: Polyethylene Glycol 3350 Powder 17 GM Packet PO PRN (17:37)
[2019-05-23] MEDS: atorvaSTATin 10 MG Tab PO SCH (20:20)
[2019-05-23] MEDS: LATANOPROST 0.005% EYEBOTH SCH (20:20)
[2019-05-24] MEDS: ceFAZolin 1 GM Vial IVPUSH SCH ×3 (00:58→16:36)
[2019-05-24] MEDS: Heparin Sodium 100 Units/ML 3 ML Syringe IVPUSH SCH ×3 (00:59→15:59)
[2019-05-24] MEDS: oxyCODONE 5 MG Tab PO PRN ×2 (01:09→18:05)
[2019-05-24] MEDS: Acetaminophen 325 MG Tab PO PRN ×2 (05:08→18:03)
[2019-05-24] MEDS: Sodium Chloride 0.9% 10 ML Syringe IV SCH ×3 (05:11→16:36)
[2019-05-24] MEDS: Hydrochlorothiazide 25 MG Tab PO SCH (08:18)
[2019-05-24] MEDS: Potassium Chloride 20 MEQ Tab.ER PO SCH (08:18)
[2019-05-24] MEDS: Celecoxib 100 MG Cap PO SCH ×2 (08:18→18:03)
[2019-05-24] MEDS: Losartan 50 MG Tab PO SCH (08:18)
[2019-05-24] MEDS: Docusate Sodium 100 MG Cap PO SCH ×2 (08:19→20:31)
[2019-05-24] MEDS: Calcium Carbonate/Vitamin D3 1250 MG-200 Unit Tab PO SCH ×2 (08:19→18:03)
[2019-05-24] MEDS: Ferrous Sulfate 325 MG Tab PO SCH (08:19)
[2019-05-24] MEDS: Aspirin 81 MG Tab.EC PO SCH ×2 (08:19→20:32)
[2019-05-24] MEDS: Metoprolol Tartrate 25 MG Tab PO SCH ×2 (08:19→20:32)
[2019-05-24] MEDS: metFORMIN 500 MG Tab PO SCH ×2 (08:19→18:06)
[2019-05-24] MEDS: TIMOLOL MALEATE 0.5% EYEBOTH SCH ×2 (08:20→20:34)
[2019-05-24] MEDS: Sodium Chloride 0.9% 10 ML Syringe FLUSH SCH ×2 (08:20→20:34)
[2019-05-24] MEDS: rOPINIRole 0.5 MG Tab PO SCH ×2 (08:20→20:34)
[2019-05-24] MEDS: atorvaSTATin 10 MG Tab PO SCH (20:31)
[2019-05-24] MEDS: Cyclobenzaprine 10 MG Tab PO PRN (20:33)
[2019-05-24] MEDS: LATANOPROST 0.005% EYEBOTH SCH (20:34)
[2019-05-25] MEDS: oxyCODONE 5 MG Tab PO PRN ×3 (00:06→23:50)
[2019-05-25] MEDS: Sodium Chloride 0.9% 10 ML Syringe IV SCH ×4 (00:07→23:36)
[2019-05-25] MEDS: Heparin Sodium 100 Units/ML 3 ML Syringe IVPUSH SCH ×4 (00:07→23:37)
[2019-05-25] MEDS: ceFAZolin 1 GM Vial IVPUSH SCH ×4 (00:07→23:36)
[2019-05-25] MEDS: TIMOLOL MALEATE 0.5% EYEBOTH SCH ×2 (07:49→20:31)
[2019-05-25] MEDS: Celecoxib 100 MG Cap PO SCH ×2 (07:50→17:33)
[2019-05-25] MEDS: Hydrochlorothiazide 25 MG Tab PO SCH (07:50)
[2019-05-25] MEDS: Ferrous Sulfate 325 MG Tab PO SCH (07:50)
[2019-05-25] MEDS: Docusate Sodium 100 MG Cap PO SCH ×2 (07:50→20:26)
[2019-05-25] MEDS: metFORMIN 500 MG Tab PO SCH ×2 (07:50→17:32)
[2019-05-25] MEDS: Aspirin 81 MG Tab.EC PO SCH ×2 (07:50→20:26)
[2019-05-25] MEDS: Potassium Chloride 20 MEQ Tab.ER PO SCH (07:50)
[2019-05-25] MEDS: Calcium Carbonate/Vitamin D3 1250 MG-200 Unit Tab PO SCH ×2 (07:50→17:33)
[2019-05-25] MEDS: Metoprolol Tartrate 25 MG Tab PO SCH ×2 (07:51→20:26)
[2019-05-25] MEDS: Losartan 50 MG Tab PO SCH (07:51)
[2019-05-25] MEDS: Sodium Chloride 0.9% 10 ML Syringe FLUSH SCH ×2 (07:55→23:35)
[2019-05-25] MEDS: rOPINIRole 0.5 MG Tab PO SCH ×2 (10:49→20:25)
[2019-05-25] MEDS: Acetaminophen 325 MG Tab PO PRN (17:33)
[2019-05-25] MEDS: atorvaSTATin 10 MG Tab PO SCH (20:26)
[2019-05-25] MEDS: LATANOPROST 0.005% EYEBOTH SCH (20:31)
[2019-05-26] MEDS: Heparin Sodium 100 Units/ML 3 ML Syringe IVPUSH SCH ×2 (07:49→16:22)
[2019-05-26] MEDS: TIMOLOL MALEATE 0.5% EYEBOTH SCH ×2 (07:49→19:35)
[2019-05-26] MEDS: ceFAZolin 1 GM Vial IVPUSH SCH ×2 (07:49→16:22)
[2019-05-26] MEDS: metFORMIN 500 MG Tab PO SCH ×2 (07:50→17:53)
[2019-05-26] MEDS: Aspirin 81 MG Tab.EC PO SCH ×2 (07:50→19:34)
[2019-05-26] MEDS: rOPINIRole 0.5 MG Tab PO SCH ×2 (07:50→19:33)
[2019-05-26] MEDS: Losartan 50 MG Tab PO SCH (07:50)
[2019-05-26] MEDS: Metoprolol Tartrate 25 MG Tab PO SCH ×2 (07:50→19:33)
[2019-05-26] MEDS: Potassium Chloride 20 MEQ Tab.ER PO SCH (07:50)
[2019-05-26] MEDS: Acetaminophen 325 MG Tab PO PRN ×2 (07:51→17:54)
[2019-05-26] MEDS: Sodium Chloride 0.9% 10 ML Syringe FLUSH SCH ×2 (07:51→21:30)
[2019-05-26] MEDS: Hydrochlorothiazide 25 MG Tab PO SCH (07:51)
[2019-05-26] MEDS: Calcium Carbonate/Vitamin D3 1250 MG-200 Unit Tab PO SCH ×2 (07:51→17:53)
[2019-05-26] MEDS: Docusate Sodium 100 MG Cap PO SCH ×2 (07:51→19:34)
[2019-05-26] MEDS: Celecoxib 100 MG Cap PO SCH ×2 (07:51→17:53)
[2019-05-26] MEDS: Ferrous Sulfate 325 MG Tab PO SCH (07:51)
[2019-05-26] MEDS: Sodium Chloride 0.9% 10 ML Syringe IV SCH ×2 (07:52→16:22)
[2019-05-26] MEDS: oxyCODONE 5 MG Tab PO PRN (17:54)
[2019-05-26] MEDS: atorvaSTATin 10 MG Tab PO SCH (19:34)
[2019-05-26] MEDS: LATANOPROST 0.005% EYEBOTH SCH (19:35)
[2019-05-27] MEDS: Heparin Sodium 100 Units/ML 3 ML Syringe IVPUSH SCH ×3 (00:23→16:10)
[2019-05-27] MEDS: ceFAZolin 1 GM Vial IVPUSH SCH ×3 (00:23→16:09)
[2019-05-27] MEDS: Sodium Chloride 0.9% 10 ML Syringe IV SCH ×3 (00:23→16:09)
[2019-05-27] MEDS: oxyCODONE 5 MG Tab PO PRN ×2 (00:23→19:31)
[2019-05-27] MEDS: Potassium Chloride 20 MEQ Tab.ER PO SCH (07:59)
[2019-05-27] MEDS: Losartan 50 MG Tab PO SCH (07:59)
[2019-05-27] MEDS: Celecoxib 100 MG Cap PO SCH ×2 (07:59→17:31)
[2019-05-27] MEDS: Ferrous Sulfate 325 MG Tab PO SCH (07:59)
[2019-05-27] MEDS: metFORMIN 500 MG Tab PO SCH ×2 (08:00→17:31)
[2019-05-27] MEDS: Aspirin 81 MG Tab.EC PO SCH ×2 (08:00→19:30)
[2019-05-27] MEDS: Metoprolol Tartrate 25 MG Tab PO SCH ×2 (08:00→19:32)
[2019-05-27] MEDS: rOPINIRole 0.5 MG Tab PO SCH ×2 (08:00→19:32)
[2019-05-27] MEDS: Calcium Carbonate/Vitamin D3 1250 MG-200 Unit Tab PO SCH ×2 (08:00→17:31)
[2019-05-27] MEDS: Heparin Sodium 100 Units/ML 3 ML Syringe IVPUSH PRN (08:02)
[2019-05-27] MEDS: Hydrochlorothiazide 25 MG Tab PO SCH (08:02)
[2019-05-27] MEDS: Docusate Sodium 100 MG Cap PO SCH ×2 (08:02→19:30)
[2019-05-27] MEDS: Sodium Chloride 0.9% 10 ML Syringe FLUSH SCH (08:03)
[2019-05-27] MEDS: TIMOLOL MALEATE 0.5% EYEBOTH SCH ×2 (08:04→19:34)
[2019-05-27] MEDS: atorvaSTATin 10 MG Tab PO SCH (19:30)
[2019-05-27] MEDS: Acetaminophen 325 MG Tab PO PRN (19:32)
[2019-05-27] MEDS: LATANOPROST 0.005% EYEBOTH SCH (19:34)
[2019-05-28] MEDS: ceFAZolin 1 GM Vial IVPUSH SCH ×3 (00:28→17:31)
[2019-05-28] MEDS: Sodium Chloride 0.9% 10 ML Syringe IV SCH ×3 (00:28→17:32)
[2019-05-28] MEDS: Heparin Sodium 100 Units/ML 3 ML Syringe IVPUSH SCH ×3 (00:28→17:32)
[2019-05-28] MEDS: Sodium Chloride 0.9% 10 ML Syringe FLUSH SCH ×3 (00:28→20:08)
[2019-05-28] MEDS: Acetaminophen 325 MG Tab PO PRN ×2 (01:36→19:55)
[2019-05-28] MEDS: oxyCODONE 5 MG Tab PO PRN ×2 (01:36→19:59)
[2019-05-28] MEDS: rOPINIRole 0.5 MG Tab PO SCH ×2 (08:26→19:58)
[2019-05-28] MEDS: TIMOLOL MALEATE 0.5% EYEBOTH SCH ×2 (08:26→20:05)
[2019-05-28] MEDS: Losartan 50 MG Tab PO SCH (08:26)
[2019-05-28] MEDS: Celecoxib 100 MG Cap PO SCH ×2 (08:26→17:32)
[2019-05-28] MEDS: Calcium Carbonate/Vitamin D3 1250 MG-200 Unit Tab PO SCH ×2 (08:27→17:32)
[2019-05-28] MEDS: Metoprolol Tartrate 25 MG Tab PO SCH ×2 (08:27→20:00)
[2019-05-28] MEDS: metFORMIN 500 MG Tab PO SCH ×2 (08:27→17:33)
[2019-05-28] MEDS: Ferrous Sulfate 325 MG Tab PO SCH (08:27)
[2019-05-28] MEDS: Docusate Sodium 100 MG Cap PO SCH ×2 (08:27→19:58)
[2019-05-28] MEDS: Aspirin 81 MG Tab.EC PO SCH ×2 (08:27→19:58)
[2019-05-28] MEDS: Potassium Chloride 20 MEQ Tab.ER PO SCH (08:27)
[2019-05-28] MEDS: Hydrochlorothiazide 25 MG Tab PO SCH (08:27)
[2019-05-28] MEDS: atorvaSTATin 10 MG Tab PO SCH (20:01)
[2019-05-28] MEDS: LATANOPROST 0.005% EYEBOTH SCH (20:05)
[2019-05-29] MEDS: Heparin Sodium 100 Units/ML 3 ML Syringe IVPUSH SCH ×3 (00:07→16:31)
[2019-05-29] MEDS: ceFAZolin 1 GM Vial IVPUSH SCH ×3 (00:07→16:31)
[2019-05-29] MEDS: Sodium Chloride 0.9% 10 ML Syringe IV SCH ×3 (00:07→16:31)
[2019-05-29] MEDS: Sodium Chloride 0.9% 10 ML Syringe FLUSH SCH (08:37)
[2019-05-29] MEDS: Aspirin 81 MG Tab.EC PO SCH (08:38)
[2019-05-29] MEDS: Hydrochlorothiazide 25 MG Tab PO SCH (08:38)
[2019-05-29] MEDS: rOPINIRole 0.5 MG Tab PO SCH ×2 (08:38→19:47)
[2019-05-29] MEDS: metFORMIN 500 MG Tab PO SCH ×2 (08:38→18:29)
[2019-05-29] MEDS: Potassium Chloride 20 MEQ Tab.ER PO SCH (08:38)
[2019-05-29] MEDS: Docusate Sodium 100 MG Cap PO SCH ×2 (08:39→19:46)
[2019-05-29] MEDS: Metoprolol Tartrate 25 MG Tab PO SCH ×2 (08:39→19:48)
[2019-05-29] MEDS: Losartan 50 MG Tab PO SCH (08:39)
[2019-05-29] MEDS: Celecoxib 100 MG Cap PO SCH ×2 (08:39→18:28)
[2019-05-29] MEDS: Calcium Carbonate/Vitamin D3 1250 MG-200 Unit Tab PO SCH ×2 (08:40→18:29)
[2019-05-29] MEDS: TIMOLOL MALEATE 0.5% EYEBOTH SCH ×2 (08:40→20:33)
[2019-05-29] MEDS: Ferrous Sulfate 325 MG Tab PO SCH (08:40)
[2019-05-29] MEDS: Acetaminophen 325 MG Tab PO PRN ×2 (08:40→18:28)
[2019-05-29] MEDS: Rifampin 150 MG Cap PO SCH ×2 (08:40→19:49)
[2019-05-29] MEDS: oxyCODONE 5 MG Tab PO PRN (18:29)
[2019-05-29] MEDS: Ondansetron 4 MG Tab.DIS PO PRN (19:45)
[2019-05-29] MEDS: atorvaSTATin 10 MG Tab PO SCH (19:48)
[2019-05-29] MEDS: LATANOPROST 0.005% EYEBOTH SCH (20:33)
[2019-05-30] MEDS: ceFAZolin 1 GM Vial IVPUSH SCH ×3 (00:05→16:36)
[2019-05-30] MEDS: Sodium Chloride 0.9% 10 ML Syringe IV SCH ×3 (00:06→16:36)
[2019-05-30] MEDS: Acetaminophen 325 MG Tab PO PRN ×3 (00:06→18:21)
[2019-05-30] MEDS: oxyCODONE 5 MG Tab PO PRN ×2 (00:08→18:21)
[2019-05-30] MEDS: Aspirin 81 MG Tab.EC PO SCH ×3 (00:10→20:40)
[2019-05-30] MEDS: Heparin Sodium 100 Units/ML 3 ML Syringe IVPUSH SCH ×3 (00:10→16:36)
[2019-05-30] MEDS: Ondansetron 4 MG Tab.DIS PO PRN ×2 (08:56→18:21)
[2019-05-30] MEDS: Polyethylene Glycol 3350 Powder 17 GM Packet PO PRN (08:56)
[2019-05-30] MEDS: rOPINIRole 0.5 MG Tab PO SCH ×2 (08:57→20:40)
[2019-05-30] MEDS: Calcium Carbonate/Vitamin D3 1250 MG-200 Unit Tab PO SCH ×2 (08:57→18:21)
[2019-05-30] MEDS: Hydrochlorothiazide 25 MG Tab PO SCH (08:57)
[2019-05-30] MEDS: Potassium Chloride 20 MEQ Tab.ER PO SCH (08:58)
[2019-05-30] MEDS: Rifampin 150 MG Cap PO SCH ×2 (08:58→20:39)
[2019-05-30] MEDS: Celecoxib 100 MG Cap PO SCH ×2 (08:58→18:21)
[2019-05-30] MEDS: Docusate Sodium 100 MG Cap PO SCH ×2 (08:58→20:40)
[2019-05-30] MEDS: metFORMIN 500 MG Tab PO SCH ×2 (08:58→18:21)
[2019-05-30] MEDS: Losartan 50 MG Tab PO SCH (08:59)
[2019-05-30] MEDS: Metoprolol Tartrate 25 MG Tab PO SCH ×2 (08:59→20:37)
[2019-05-30] MEDS: Ferrous Sulfate 325 MG Tab PO SCH (08:59)
[2019-05-30] MEDS: TIMOLOL MALEATE 0.5% EYEBOTH SCH ×2 (09:01→20:46)
[2019-05-30] MEDS: Sodium Chloride 0.9% 10 ML Syringe IV PRN (16:36)
[2019-05-30] MEDS: atorvaSTATin 10 MG Tab PO SCH (20:40)
[2019-05-30] MEDS: LATANOPROST 0.005% EYEBOTH SCH (20:46)
[2019-05-31] MEDS: ceFAZolin 1 GM Vial IVPUSH SCH ×3 (01:01→16:25)
[2019-05-31] MEDS: oxyCODONE 5 MG Tab PO PRN ×2 (01:01→18:54)
[2019-05-31] MEDS: Acetaminophen 325 MG Tab PO PRN ×3 (01:02→18:55)
[2019-05-31] MEDS: Sodium Chloride 0.9% 10 ML Syringe IV SCH ×3 (01:03→16:25)
[2019-05-31] MEDS: Heparin Sodium 100 Units/ML 3 ML Syringe IVPUSH SCH ×3 (01:03→16:25)
[2019-05-31] MEDS: Losartan 50 MG Tab PO SCH (08:50)
[2019-05-31] MEDS: Celecoxib 100 MG Cap PO SCH ×2 (08:51→18:53)
[2019-05-31] MEDS: rOPINIRole 0.5 MG Tab PO SCH ×2 (08:51→20:49)
[2019-05-31] MEDS: Calcium Carbonate/Vitamin D3 1250 MG-200 Unit Tab PO SCH ×2 (08:51→18:53)
[2019-05-31] MEDS: Ondansetron 4 MG Tab.DIS PO PRN ×2 (08:51→18:54)
[2019-05-31] MEDS: Ferrous Sulfate 325 MG Tab PO SCH (08:51)
[2019-05-31] MEDS: Potassium Chloride 20 MEQ Tab.ER PO SCH (08:51)
[2019-05-31] MEDS: Aspirin 81 MG Tab.EC PO SCH ×2 (08:52→20:50)
[2019-05-31] MEDS: metFORMIN 500 MG Tab PO SCH ×2 (08:52→18:55)
[2019-05-31] MEDS: Hydrochlorothiazide 25 MG Tab PO SCH (08:52)
[2019-05-31] MEDS: Metoprolol Tartrate 25 MG Tab PO SCH ×2 (08:52→20:50)
[2019-05-31] MEDS: Rifampin 150 MG Cap PO SCH ×2 (08:53→23:19)
[2019-05-31] MEDS: Docusate Sodium 100 MG Cap PO SCH (08:53)
[2019-05-31] MEDS: TIMOLOL MALEATE 0.5% EYEBOTH SCH (08:53)
--- NOTE | 2019-05-31 11:59 | PCM.PN ---
- General Info Date of Service: 05/31/19 Subjective Update: Notified by Gretchen HAMMOND of concerns of diarrhea. pt with 8 episodes of diarrhea already this morning. Considerable urgency as well. pt states her stomach is rumbling. Pt being treated for infected orthopedic hardware. Has been on Ancef. Culture grew Staph aureus. Was seen by ID this week and Rifampin added on 05/28/2019. Loose stool started on 05/30/2019 so stool softener was held. - Review of Systems Gastrointestinal: Reports: Diarrhea. Denies: Hematochezia, Melena - Patient Data Vitals - Most Recent: Last Vital Signs Temp 36.6 C 05/31/19 05:04 Pulse 79 05/31/19 08:52 Resp 17 05/31/19 05:04 BP 132/59 L 05/31/19 08:52 Pulse Ox 98 05/31/19 05:04 Weight - Most Recent: 93.979 kg I&O - Last 24 Hours: Intake & Output 05/30/19 05/31/19 05/31/19 22:59 06:59 14:59 Intake Total 300 Balance 300 Lab Results Last 24 Hours: Laboratory Results - last 24 hr 05/31/19 Range/Units 06:00 POC Glucose 96 (74-106) mg/dL Med Orders - Current: Current Medications Acetaminophen (Tylenol) 325 - 650 mg PO Q4HR PRN PRN Reason: Pain (mild 1-3) Last Admin: 05/31/19 08:51 Dose: 650 mg Aspirin (Halfprin) 81 mg PO BID [facility] Last Admin: 05/31/19 08:52 Dose: 81 mg Atorvastatin Calcium (Lipitor) 20 mg PO BEDTIME [facility] Last Admin: 05/30/19 20:40 Dose: 20 mg Calcium Carbonate (Calcium Carbonate/Vitamin D 1250 Mg-200 Unit) 1 tab PO BIDMEALS [facility] Last Admin: 05/31/19 08:51 Dose: 1 tab Cefazolin Sodium (Ancef) 2 gm IVPUSH Q8H [facility] Last Admin: 05/31/19 08:49 Dose: 2 gm Celecoxib (Celebrex) 200 mg PO BIDMEALS [facility] Last Admin: 05/31/19 08:51 Dose: 200 mg Clobetasol Propionate (Clobetasol 0.05%) 0 gm TOP BID PRN PRN Reason: Itching Cyclobenzaprine HCl (Flexeril) 5 - 10 mg PO Q8HR PRN PRN Reason: Muscle Spasm Last Admin: 05/24/19 20:33 Dose: 10 mg Ferrous Sulfate (Ferrous Sulfate) 325 mg PO DAILY [facility] Last Admin: 05/31/19 08:51 Dose: 325 mg Heparin Sodium (Porcine) (Heparin Lock Flush 100 Units/Ml) 300 unit IVPUSH Q8H [facility] Last Admin: 05/31/19 08:50 Dose: 300 unit Heparin Sodium (Porcine) (Heparin Lock Flush 100 Units/Ml) 300 unit IVPUSH ASDIRECTED PRN PRN Reason: PICC FLUSH Last Admin: 05/27/19 08:02 Dose: 300 unit Hydrochlorothiazide (Hydrochlorothiazide) 25 mg PO DAILY [facility] Last Admin: 05/31/19 08:52 Dose: 25 mg Latanoprost (Xalatan 0.005% Ophth Soln) 0 ml EYEBOTH BEDTIME [facility] Last Admin: 05/30/19 20:46 Dose: 1 drop Losartan Potassium (Cozaar) 150 mg PO DAILY [facility] Last Admin: 05/31/19 08:50 Dose: 150 mg Metformin HCl (Glucophage) 500 mg PO DAILY [facility] Last Admin: 05/31/19 08:52 Dose: 500 mg Metformin HCl (Glucophage) 250 mg PO DAILY@1800 [facility] Last Admin: 05/30/19 18:21 Dose: 250 mg Metoprolol Tartrate (Lopressor) 12.5 mg PO BID [facility] Last Admin: 05/31/19 08:52 Dose: 12.5 mg Ondansetron HCl (Zofran Odt) 4 mg PO Q6HR PRN PRN Reason: Nausea Last Admin: 05/31/19 08:51 Dose: 4 mg Oxycodone HCl (Oxycodone) 5 - 10 mg PO Q6H PRN PRN Reason: Pain Last Admin: 05/31/19 01:01 Dose: 10 mg Polyethylene Glycol (Miralax) 17 gm PO BID PRN PRN Reason: Constipation Last Admin: 05/30/19 08:56 Dose: 17 gm Potassium Chloride (Klor-Con M20) 40 meq PO DAILY [facility] Last Admin: 05/31/19 08:51 Dose: 40 meq Rifampin (Rifadin) 300 mg PO BID [facility] Last Admin: 05/31/19 08:53 Dose: 300 mg Ropinirole HCl (Requip) 1 mg PO BID [facility] Last Admin: 05/31/19 08:51 Dose: 1 mg Sodium Chloride (Saline Flush) 10 ml IV Q8H [facility] Last Admin: 05/31/19 08:50 Dose: 10 ml Sodium Chloride (Saline Flush) 10 ml IV ASDIRECTED PRN PRN Reason: PICC FLUSH Last Admin: 05/30/19 16:36 Dose: 10 ml Timolol Maleate (Timoptic 0.5% Ophth Soln) 0 ml EYEBOTH BID [facility] Last Admin: 05/31/19 08:53 Dose: 1 drop Discontinued Medications Docusate Sodium (Colace) 100 mg PO BID [facility] Last Admin: 05/31/19 08:53 Dose: Not Given Ropinirole HCl (Requip) 0.25 mg PO BID [facility] Last Admin: 05/21/19 09:27 Dose: Not Given Sodium Chloride (Saline Flush) 10 ml FLUSH BID [facility] Last Admin: 05/29/19 08:37 Dose: 10 ml - Exam General: Alert Lungs: Clear to Auscultation Cardiovascular: Regular Rate, Regular Rhythm GI/Abdominal Exam: Normal Bowel Sounds Sepsis Event Note - Evaluation Sepsis Screening Result: No Definite Risk - Focused Exam Vital Signs: Vital Signs Temp Pulse Pulse Resp BP BP Pulse Ox 05/31/19 08:52 79 132/59 L 05/31/19 08:50 132/59 L 05/31/19 05:04 36.6 C 79 17 132/59 L 98 Date Exam was Performed: 05/31/19 Time Exam was Performed: 11:54 - Problem List & Annotations (1) Surgical site infection SNOMED Code(s): 21427172, 308670281 Code(s): T81.49XA - INFECTION FOLLOWING A PROCEDURE, OTHER SURGICAL SITE, INIT Status: Acute Current Visit: No - Problem List Review Problem List Initiated/Reviewed/Updated: Yes - Assessment Assessment:: Diarrhea Post-op infection - Plan Plan:: Will test for C diff - realizing Colace was last given 24 hours ago but clinically this severity of diarrhea is not generally seen with 100 mg of Colace. Will hold rifampin and monitor symptoms Will need to reach out to ID for suggestions if change of regimen is necessary.
[2019-05-31] MEDS: Sodium Chloride 0.9% 10 ML Syringe IV PRN (16:25)
[2019-05-31] MEDS: atorvaSTATin 10 MG Tab PO SCH (20:49)
[2019-06-01] MEDS: LATANOPROST 0.005% EYEBOTH SCH ×2 (00:15→20:32)
[2019-06-01] MEDS: Acetaminophen 325 MG Tab PO PRN ×2 (00:15→18:10)
[2019-06-01] MEDS: TIMOLOL MALEATE 0.5% EYEBOTH SCH ×3 (00:15→20:32)
[2019-06-01] MEDS: oxyCODONE 5 MG Tab PO PRN ×2 (00:16→18:11)
[2019-06-01] MEDS: ceFAZolin 1 GM Vial IVPUSH SCH ×3 (00:18→16:28)
[2019-06-01] MEDS: Heparin Sodium 100 Units/ML 3 ML Syringe IVPUSH SCH ×3 (00:18→16:28)
[2019-06-01] MEDS: Sodium Chloride 0.9% 10 ML Syringe IV SCH ×3 (00:19→16:28)
[2019-06-01] MEDS: rOPINIRole 0.5 MG Tab PO SCH ×2 (08:21→20:31)
[2019-06-01] MEDS: Metoprolol Tartrate 25 MG Tab PO SCH ×2 (08:22→20:32)
[2019-06-01] MEDS: metFORMIN 500 MG Tab PO SCH ×2 (08:22→18:11)
[2019-06-01] MEDS: Aspirin 81 MG Tab.EC PO SCH ×2 (08:22→20:32)
[2019-06-01] MEDS: Potassium Chloride 20 MEQ Tab.ER PO SCH (08:22)
[2019-06-01] MEDS: Hydrochlorothiazide 25 MG Tab PO SCH (08:22)
[2019-06-01] MEDS: Losartan 50 MG Tab PO SCH (08:23)
[2019-06-01] MEDS: Celecoxib 100 MG Cap PO SCH ×2 (08:23→18:11)
[2019-06-01] MEDS: Calcium Carbonate/Vitamin D3 1250 MG-200 Unit Tab PO SCH ×2 (08:23→18:11)
[2019-06-01] MEDS: Ferrous Sulfate 325 MG Tab PO SCH (08:23)
[2019-06-01] MEDS: Rifampin 150 MG Cap PO SCH (08:44)
[2019-06-01] MEDS: atorvaSTATin 10 MG Tab PO SCH (20:31)
[2019-06-02] MEDS: ceFAZolin 1 GM Vial IVPUSH SCH ×4 (01:16→23:48)
[2019-06-02] MEDS: Heparin Sodium 100 Units/ML 3 ML Syringe IVPUSH SCH ×4 (01:17→23:48)
[2019-06-02] MEDS: Acetaminophen 325 MG Tab PO PRN ×3 (01:17→23:56)
[2019-06-02] MEDS: oxyCODONE 5 MG Tab PO PRN ×3 (01:20→23:55)
[2019-06-02] MEDS: Sodium Chloride 0.9% 10 ML Syringe IV SCH ×4 (01:22→23:49)
[2019-06-02] MEDS: TIMOLOL MALEATE 0.5% EYEBOTH SCH ×2 (08:45→19:46)
[2019-06-02] MEDS: metFORMIN 500 MG Tab PO SCH ×2 (08:46→18:08)
[2019-06-02] MEDS: Aspirin 81 MG Tab.EC PO SCH ×2 (08:46→19:44)
[2019-06-02] MEDS: Calcium Carbonate/Vitamin D3 1250 MG-200 Unit Tab PO SCH ×2 (08:46→18:08)
[2019-06-02] MEDS: Potassium Chloride 20 MEQ Tab.ER PO SCH (08:46)
[2019-06-02] MEDS: Celecoxib 100 MG Cap PO SCH ×2 (08:46→18:08)
[2019-06-02] MEDS: Losartan 50 MG Tab PO SCH (08:47)
[2019-06-02] MEDS: Hydrochlorothiazide 25 MG Tab PO SCH (08:47)
[2019-06-02] MEDS: Metoprolol Tartrate 25 MG Tab PO SCH ×2 (08:47→19:41)
[2019-06-02] MEDS: rOPINIRole 0.5 MG Tab PO SCH ×2 (08:47→19:40)
[2019-06-02] MEDS: Ferrous Sulfate 325 MG Tab PO SCH (08:47)
[2019-06-02] MEDS: atorvaSTATin 10 MG Tab PO SCH (19:43)
[2019-06-02] MEDS: LATANOPROST 0.005% EYEBOTH SCH (19:46)
[2019-06-03] MEDS: TIMOLOL MALEATE 0.5% EYEBOTH SCH ×2 (08:43→20:21)
[2019-06-03] MEDS: ceFAZolin 1 GM Vial IVPUSH SCH ×2 (08:44→16:13)
[2019-06-03] MEDS: Aspirin 81 MG Tab.EC PO SCH ×2 (08:44→20:17)
[2019-06-03] MEDS: Calcium Carbonate/Vitamin D3 1250 MG-200 Unit Tab PO SCH ×2 (08:44→18:01)
[2019-06-03] MEDS: Potassium Chloride 20 MEQ Tab.ER PO SCH (08:44)
[2019-06-03] MEDS: rOPINIRole 0.5 MG Tab PO SCH ×2 (08:44→20:17)
[2019-06-03] MEDS: Celecoxib 100 MG Cap PO SCH ×2 (08:44→18:01)
[2019-06-03] MEDS: metFORMIN 500 MG Tab PO SCH ×2 (08:44→18:00)
[2019-06-03] MEDS: Hydrochlorothiazide 25 MG Tab PO SCH (08:45)
[2019-06-03] MEDS: Losartan 50 MG Tab PO SCH (08:45)
[2019-06-03] MEDS: Metoprolol Tartrate 25 MG Tab PO SCH ×2 (08:45→20:17)
[2019-06-03] MEDS: Ferrous Sulfate 325 MG Tab PO SCH (08:45)
[2019-06-03] MEDS: Sodium Chloride 0.9% 10 ML Syringe IV SCH ×2 (08:46→16:13)
[2019-06-03] MEDS: Heparin Sodium 100 Units/ML 3 ML Syringe IVPUSH SCH ×2 (08:46→16:13)
[2019-06-03] MEDS: oxyCODONE 5 MG Tab PO PRN (18:00)
[2019-06-03] MEDS: Acetaminophen 325 MG Tab PO PRN (18:01)
[2019-06-03] MEDS: LATANOPROST 0.005% EYEBOTH SCH (20:16)
[2019-06-03] MEDS: atorvaSTATin 10 MG Tab PO SCH (20:17)
[2019-06-04] MEDS: Sodium Chloride 0.9% 10 ML Syringe IV SCH ×3 (00:21→17:30)
[2019-06-04] MEDS: ceFAZolin 1 GM Vial IVPUSH SCH ×3 (00:21→17:31)
[2019-06-04] MEDS: Heparin Sodium 100 Units/ML 3 ML Syringe IVPUSH SCH ×3 (00:21→17:33)
[2019-06-04] MEDS: Sodium Chloride 0.9% 10 ML Syringe IV PRN (00:21)
[2019-06-04] MEDS: Cyclobenzaprine 10 MG Tab PO PRN (00:22)
[2019-06-04] MEDS: oxyCODONE 5 MG Tab PO PRN ×2 (00:22→18:56)
[2019-06-04] MEDS: Celecoxib 100 MG Cap PO SCH ×2 (08:30→17:33)
[2019-06-04] MEDS: Calcium Carbonate/Vitamin D3 1250 MG-200 Unit Tab PO SCH ×2 (08:30→17:33)
[2019-06-04] MEDS: Hydrochlorothiazide 25 MG Tab PO SCH (08:30)
[2019-06-04] MEDS: Potassium Chloride 20 MEQ Tab.ER PO SCH (08:30)
[2019-06-04] MEDS: Losartan 50 MG Tab PO SCH (08:31)
[2019-06-04] MEDS: Aspirin 81 MG Tab.EC PO SCH ×2 (08:31→19:47)
[2019-06-04] MEDS: rOPINIRole 0.5 MG Tab PO SCH ×2 (08:31→19:44)
[2019-06-04] MEDS: Ferrous Sulfate 325 MG Tab PO SCH (08:31)
[2019-06-04] MEDS: metFORMIN 500 MG Tab PO SCH ×2 (08:31→17:32)
[2019-06-04] MEDS: Metoprolol Tartrate 25 MG Tab PO SCH ×2 (08:32→19:47)
[2019-06-04] MEDS: TIMOLOL MALEATE 0.5% EYEBOTH SCH ×2 (08:34→19:48)
[2019-06-04] MEDS: Acetaminophen 325 MG Tab PO PRN (18:53)
[2019-06-04] MEDS: atorvaSTATin 10 MG Tab PO SCH (19:45)
[2019-06-04] MEDS: LATANOPROST 0.005% EYEBOTH SCH (19:47)
[2019-06-05] MEDS: Sodium Chloride 0.9% 10 ML Syringe IV PRN (00:38)
[2019-06-05] MEDS: Sodium Chloride 0.9% 10 ML Syringe IV SCH ×3 (00:38→16:14)
[2019-06-05] MEDS: ceFAZolin 1 GM Vial IVPUSH SCH ×3 (00:38→16:14)
[2019-06-05] MEDS: Heparin Sodium 100 Units/ML 3 ML Syringe IVPUSH SCH ×3 (00:38→16:14)
[2019-06-05] MEDS: oxyCODONE 5 MG Tab PO PRN ×2 (00:57→18:36)
[2019-06-05] MEDS: Cyclobenzaprine 10 MG Tab PO PRN (00:59)
[2019-06-05] MEDS: rOPINIRole 0.5 MG Tab PO SCH ×2 (08:44→19:40)
[2019-06-05] MEDS: Losartan 50 MG Tab PO SCH (08:44)
[2019-06-05] MEDS: Calcium Carbonate/Vitamin D3 1250 MG-200 Unit Tab PO SCH ×2 (08:45→18:37)
[2019-06-05] MEDS: Celecoxib 100 MG Cap PO SCH ×2 (08:45→18:36)
[2019-06-05] MEDS: metFORMIN 500 MG Tab PO SCH ×2 (08:45→18:38)
[2019-06-05] MEDS: Potassium Chloride 20 MEQ Tab.ER PO SCH (08:45)
[2019-06-05] MEDS: Hydrochlorothiazide 25 MG Tab PO SCH (08:45)
[2019-06-05] MEDS: Metoprolol Tartrate 25 MG Tab PO SCH ×2 (08:46→19:40)
[2019-06-05] MEDS: TIMOLOL MALEATE 0.5% EYEBOTH SCH ×2 (08:47→19:41)
[2019-06-05] MEDS: Ferrous Sulfate 325 MG Tab PO SCH (08:47)
[2019-06-05] MEDS: Aspirin 81 MG Tab.EC PO SCH ×2 (08:47→19:40)
[2019-06-05] MEDS: Acetaminophen 325 MG Tab PO PRN ×2 (09:10→18:37)
[2019-06-05] MEDS: atorvaSTATin 10 MG Tab PO SCH (19:40)
[2019-06-05] MEDS: LATANOPROST 0.005% EYEBOTH SCH (19:41)
[2019-06-06] MEDS: Sodium Chloride 0.9% 10 ML Syringe IV SCH ×3 (00:01→16:31)
[2019-06-06] MEDS: ceFAZolin 1 GM Vial IVPUSH SCH ×3 (00:01→16:31)
[2019-06-06] MEDS: Heparin Sodium 100 Units/ML 3 ML Syringe IVPUSH SCH ×3 (00:01→16:32)
[2019-06-06] MEDS: Acetaminophen 325 MG Tab PO PRN ×3 (00:03→18:18)
[2019-06-06] MEDS: oxyCODONE 5 MG Tab PO PRN ×2 (00:03→18:19)
[2019-06-06] MEDS: rOPINIRole 0.5 MG Tab PO SCH ×2 (07:43→19:50)
[2019-06-06] MEDS: Losartan 50 MG Tab PO SCH (07:43)
[2019-06-06] MEDS: Potassium Chloride 20 MEQ Tab.ER PO SCH (07:43)
[2019-06-06] MEDS: Calcium Carbonate/Vitamin D3 1250 MG-200 Unit Tab PO SCH ×2 (07:44→18:20)
[2019-06-06] MEDS: Celecoxib 100 MG Cap PO SCH ×2 (07:45→18:20)
[2019-06-06] MEDS: Hydrochlorothiazide 25 MG Tab PO SCH (07:45)
[2019-06-06] MEDS: Metoprolol Tartrate 25 MG Tab PO SCH ×2 (07:45→19:49)
[2019-06-06] MEDS: metFORMIN 500 MG Tab PO SCH ×2 (07:47→18:20)
[2019-06-06] MEDS: Aspirin 81 MG Tab.EC PO SCH ×2 (07:47→19:50)
[2019-06-06] MEDS: Ferrous Sulfate 325 MG Tab PO SCH (07:47)
[2019-06-06] MEDS: TIMOLOL MALEATE 0.5% EYEBOTH SCH ×2 (07:48→19:50)
[2019-06-06] MEDS: LATANOPROST 0.005% EYEBOTH SCH (19:50)
[2019-06-06] MEDS: atorvaSTATin 10 MG Tab PO SCH (19:50)
[2019-06-07] MEDS: oxyCODONE 5 MG Tab PO PRN ×3 (01:16→23:30)
[2019-06-07] MEDS: Heparin Sodium 100 Units/ML 3 ML Syringe IVPUSH SCH ×4 (01:16→23:26)
[2019-06-07] MEDS: Sodium Chloride 0.9% 10 ML Syringe IV SCH ×4 (01:16→23:26)
[2019-06-07] MEDS: ceFAZolin 1 GM Vial IVPUSH SCH ×4 (01:16→23:25)
[2019-06-07] MEDS: Acetaminophen 325 MG Tab PO PRN ×4 (01:16→23:30)
[2019-06-07] MEDS: rOPINIRole 0.5 MG Tab PO SCH ×2 (08:30→19:28)
[2019-06-07] MEDS: TIMOLOL MALEATE 0.5% EYEBOTH SCH ×2 (08:30→19:30)
[2019-06-07] MEDS: Losartan 50 MG Tab PO SCH (08:31)
[2019-06-07] MEDS: Celecoxib 100 MG Cap PO SCH ×2 (08:32→18:17)
[2019-06-07] MEDS: Potassium Chloride 20 MEQ Tab.ER PO SCH (08:32)
[2019-06-07] MEDS: Hydrochlorothiazide 25 MG Tab PO SCH (08:32)
[2019-06-07] MEDS: metFORMIN 500 MG Tab PO SCH ×2 (08:32→18:19)
[2019-06-07] MEDS: Metoprolol Tartrate 25 MG Tab PO SCH ×2 (08:33→19:29)
[2019-06-07] MEDS: Aspirin 81 MG Tab.EC PO SCH ×2 (08:34→19:29)
[2019-06-07] MEDS: Calcium Carbonate/Vitamin D3 1250 MG-200 Unit Tab PO SCH ×2 (08:34→18:18)
[2019-06-07] MEDS: Ferrous Sulfate 325 MG Tab PO SCH (08:34)
[2019-06-07] MEDS: Cyclobenzaprine 10 MG Tab PO PRN (19:28)
[2019-06-07] MEDS: atorvaSTATin 10 MG Tab PO SCH (19:29)
[2019-06-07] MEDS: LATANOPROST 0.005% EYEBOTH SCH (19:30)
[2019-06-08] MEDS: Heparin Sodium 100 Units/ML 3 ML Syringe IVPUSH SCH ×2 (07:49→17:27)
[2019-06-08] MEDS: Sodium Chloride 0.9% 10 ML Syringe IV SCH ×2 (07:49→17:27)
[2019-06-08] MEDS: ceFAZolin 1 GM Vial IVPUSH SCH ×2 (07:49→17:27)
[2019-06-08] MEDS: Acetaminophen 325 MG Tab PO PRN ×2 (07:49→17:30)
[2019-06-08] MEDS: rOPINIRole 0.5 MG Tab PO SCH ×2 (07:50→19:29)
[2019-06-08] MEDS: Potassium Chloride 20 MEQ Tab.ER PO SCH (07:50)
[2019-06-08] MEDS: Celecoxib 100 MG Cap PO SCH ×2 (07:50→17:29)
[2019-06-08] MEDS: Ferrous Sulfate 325 MG Tab PO SCH (07:50)
[2019-06-08] MEDS: Calcium Carbonate/Vitamin D3 1250 MG-200 Unit Tab PO SCH ×2 (07:50→17:28)
[2019-06-08] MEDS: metFORMIN 500 MG Tab PO SCH ×2 (07:51→17:28)
[2019-06-08] MEDS: Metoprolol Tartrate 25 MG Tab PO SCH ×2 (07:51→19:33)
[2019-06-08] MEDS: Aspirin 81 MG Tab.EC PO SCH ×2 (07:51→19:29)
[2019-06-08] MEDS: Hydrochlorothiazide 25 MG Tab PO SCH (07:52)
[2019-06-08] MEDS: Losartan 50 MG Tab PO SCH (07:52)
[2019-06-08] MEDS: TIMOLOL MALEATE 0.5% EYEBOTH SCH ×2 (07:53→19:30)
[2019-06-08] MEDS: oxyCODONE 5 MG Tab PO PRN (17:29)
[2019-06-08] MEDS: atorvaSTATin 10 MG Tab PO SCH (19:29)
[2019-06-08] MEDS: LATANOPROST 0.005% EYEBOTH SCH (19:31)
[2019-06-09] MEDS: Sodium Chloride 0.9% 10 ML Syringe IV SCH ×3 (00:01→16:33)
[2019-06-09] MEDS: ceFAZolin 1 GM Vial IVPUSH SCH ×3 (00:01→16:32)
[2019-06-09] MEDS: Sodium Chloride 0.9% 10 ML Syringe IV PRN (00:01)
[2019-06-09] MEDS: Heparin Sodium 100 Units/ML 3 ML Syringe IVPUSH SCH ×3 (00:02→16:33)
[2019-06-09] MEDS: Cyclobenzaprine 10 MG Tab PO PRN (00:02)
[2019-06-09] MEDS: oxyCODONE 5 MG Tab PO PRN ×2 (00:02→17:54)
[2019-06-09] MEDS: TIMOLOL MALEATE 0.5% EYEBOTH SCH ×2 (07:55→19:53)
[2019-06-09] MEDS: Acetaminophen 325 MG Tab PO PRN ×2 (07:55→17:55)
[2019-06-09] MEDS: rOPINIRole 0.5 MG Tab PO SCH ×2 (07:56→19:46)
[2019-06-09] MEDS: Hydrochlorothiazide 25 MG Tab PO SCH (07:57)
[2019-06-09] MEDS: Ferrous Sulfate 325 MG Tab PO SCH (07:57)
[2019-06-09] MEDS: Losartan 50 MG Tab PO SCH (07:57)
[2019-06-09] MEDS: Calcium Carbonate/Vitamin D3 1250 MG-200 Unit Tab PO SCH ×2 (07:57→17:39)
[2019-06-09] MEDS: Celecoxib 100 MG Cap PO SCH ×2 (07:57→17:39)
[2019-06-09] MEDS: Potassium Chloride 20 MEQ Tab.ER PO SCH (07:58)
[2019-06-09] MEDS: Metoprolol Tartrate 25 MG Tab PO SCH ×2 (07:59→20:01)
[2019-06-09] MEDS: Aspirin 81 MG Tab.EC PO SCH ×2 (08:00→19:47)
[2019-06-09] MEDS: metFORMIN 500 MG Tab PO SCH ×2 (08:00→17:40)
[2019-06-09] MEDS: atorvaSTATin 10 MG Tab PO SCH (19:47)
[2019-06-09] MEDS: LATANOPROST 0.005% EYEBOTH SCH (19:48)
[2019-06-10] MEDS: oxyCODONE 5 MG Tab PO PRN ×2 (00:13→17:42)
[2019-06-10] MEDS: Cyclobenzaprine 10 MG Tab PO PRN (00:14)
[2019-06-10] MEDS: Sodium Chloride 0.9% 10 ML Syringe IV SCH ×3 (00:15→16:41)
[2019-06-10] MEDS: ceFAZolin 1 GM Vial IVPUSH SCH ×3 (00:15→16:40)
[2019-06-10] MEDS: Heparin Sodium 100 Units/ML 3 ML Syringe IVPUSH SCH ×3 (00:16→16:41)
[2019-06-10] MEDS: Sodium Chloride 0.9% 10 ML Syringe IV PRN (00:16)
[2019-06-10] MEDS: TIMOLOL MALEATE 0.5% EYEBOTH SCH ×2 (07:26→20:00)
[2019-06-10] MEDS: Acetaminophen 325 MG Tab PO PRN ×2 (07:28→17:40)
[2019-06-10] MEDS: Losartan 50 MG Tab PO SCH (07:29)
[2019-06-10] MEDS: metFORMIN 500 MG Tab PO SCH ×2 (07:29→17:42)
[2019-06-10] MEDS: rOPINIRole 0.5 MG Tab PO SCH ×2 (07:29→19:59)
[2019-06-10] MEDS: Celecoxib 100 MG Cap PO SCH ×2 (07:29→17:40)
[2019-06-10] MEDS: Ferrous Sulfate 325 MG Tab PO SCH (07:29)
[2019-06-10] MEDS: Potassium Chloride 20 MEQ Tab.ER PO SCH (07:30)
[2019-06-10] MEDS: Metoprolol Tartrate 25 MG Tab PO SCH ×2 (07:30→20:01)
[2019-06-10] MEDS: Aspirin 81 MG Tab.EC PO SCH ×2 (07:33→20:01)
[2019-06-10] MEDS: Hydrochlorothiazide 25 MG Tab PO SCH (07:33)
[2019-06-10] MEDS: Calcium Carbonate/Vitamin D3 1250 MG-200 Unit Tab PO SCH ×2 (07:33→17:42)
[2019-06-10] MEDS: atorvaSTATin 10 MG Tab PO SCH (19:59)
[2019-06-10] MEDS: LATANOPROST 0.005% EYEBOTH SCH (20:00)
[2019-06-11] MEDS: oxyCODONE 5 MG Tab PO PRN ×2 (00:18→18:56)
[2019-06-11] MEDS: Cyclobenzaprine 10 MG Tab PO PRN (00:19)
[2019-06-11] MEDS: ceFAZolin 1 GM Vial IVPUSH SCH ×3 (00:20→18:55)
[2019-06-11] MEDS: Sodium Chloride 0.9% 10 ML Syringe IV SCH ×3 (00:20→18:55)
[2019-06-11] MEDS: Sodium Chloride 0.9% 10 ML Syringe IV PRN (00:20)
[2019-06-11] MEDS: Heparin Sodium 100 Units/ML 3 ML Syringe IVPUSH SCH ×3 (00:21→18:55)
[2019-06-11] MEDS: TIMOLOL MALEATE 0.5% EYEBOTH SCH ×2 (08:46→19:05)
[2019-06-11] MEDS: Acetaminophen 325 MG Tab PO PRN ×2 (08:47→18:57)
[2019-06-11] MEDS: Losartan 50 MG Tab PO SCH (08:47)
[2019-06-11] MEDS: Metoprolol Tartrate 25 MG Tab PO SCH ×2 (08:48→19:03)
[2019-06-11] MEDS: Potassium Chloride 20 MEQ Tab.ER PO SCH (08:49)
[2019-06-11] MEDS: metFORMIN 500 MG Tab PO SCH ×2 (08:50→18:55)
[2019-06-11] MEDS: rOPINIRole 0.5 MG Tab PO SCH ×2 (08:50→19:02)
[2019-06-11] MEDS: Aspirin 81 MG Tab.EC PO SCH ×2 (08:50→19:02)
[2019-06-11] MEDS: Hydrochlorothiazide 25 MG Tab PO SCH (08:50)
[2019-06-11] MEDS: Calcium Carbonate/Vitamin D3 1250 MG-200 Unit Tab PO SCH ×2 (08:50→18:56)
[2019-06-11] MEDS: Ferrous Sulfate 325 MG Tab PO SCH (08:50)
[2019-06-11] MEDS: Celecoxib 100 MG Cap PO SCH (08:50)
[2019-06-11] MEDS: atorvaSTATin 10 MG Tab PO SCH (19:04)
[2019-06-11] MEDS: LATANOPROST 0.005% EYEBOTH SCH (19:05)
[2019-06-12] MEDS: oxyCODONE 5 MG Tab PO PRN ×3 (00:34→23:57)
[2019-06-12] MEDS: Cyclobenzaprine 10 MG Tab PO PRN ×2 (00:37→19:27)
[2019-06-12] MEDS: Sodium Chloride 0.9% 10 ML Syringe IV SCH ×4 (00:38→23:56)
[2019-06-12] MEDS: Sodium Chloride 0.9% 10 ML Syringe IV PRN (00:38)
[2019-06-12] MEDS: Heparin Sodium 100 Units/ML 3 ML Syringe IVPUSH SCH ×4 (00:38→23:56)
[2019-06-12] MEDS: ceFAZolin 1 GM Vial IVPUSH SCH ×4 (00:38→23:56)
[2019-06-12] MEDS: Calcium Carbonate/Vitamin D3 1250 MG-200 Unit Tab PO SCH ×2 (07:42→17:02)
[2019-06-12] MEDS: metFORMIN 500 MG Tab PO SCH ×2 (07:42→17:02)
[2019-06-12] MEDS: Potassium Chloride 20 MEQ Tab.ER PO SCH (07:42)
[2019-06-12] MEDS: Ferrous Sulfate 325 MG Tab PO SCH (07:42)
[2019-06-12] MEDS: rOPINIRole 0.5 MG Tab PO SCH ×2 (07:43→19:28)
[2019-06-12] MEDS: Losartan 50 MG Tab PO SCH (07:43)
[2019-06-12] MEDS: Metoprolol Tartrate 25 MG Tab PO SCH ×2 (07:44→19:28)
[2019-06-12] MEDS: Hydrochlorothiazide 25 MG Tab PO SCH (07:44)
[2019-06-12] MEDS: TIMOLOL MALEATE 0.5% EYEBOTH SCH ×2 (07:45→19:26)
[2019-06-12] MEDS: Aspirin 81 MG Tab.EC PO SCH ×2 (07:46→19:27)
[2019-06-12] MEDS: Acetaminophen 325 MG Tab PO PRN ×2 (18:16→23:57)
[2019-06-12] MEDS: atorvaSTATin 10 MG Tab PO SCH (19:27)
[2019-06-12] MEDS: LATANOPROST 0.005% EYEBOTH SCH (19:27)
[2019-06-13] MEDS: Metoprolol Tartrate 25 MG Tab PO SCH ×2 (07:31→19:10)
[2019-06-13] MEDS: Hydrochlorothiazide 25 MG Tab PO SCH (07:31)
[2019-06-13] MEDS: rOPINIRole 0.5 MG Tab PO SCH ×2 (07:31→19:11)
[2019-06-13] MEDS: ceFAZolin 1 GM Vial IVPUSH SCH ×3 (07:31→23:24)
[2019-06-13] MEDS: Aspirin 81 MG Tab.EC PO SCH ×2 (07:31→19:10)
[2019-06-13] MEDS: metFORMIN 500 MG Tab PO SCH ×2 (07:32→18:01)
[2019-06-13] MEDS: Losartan 50 MG Tab PO SCH (07:32)
[2019-06-13] MEDS: Ferrous Sulfate 325 MG Tab PO SCH (07:32)
[2019-06-13] MEDS: Potassium Chloride 20 MEQ Tab.ER PO SCH (07:32)
[2019-06-13] MEDS: Calcium Carbonate/Vitamin D3 1250 MG-200 Unit Tab PO SCH ×2 (07:32→18:01)
[2019-06-13] MEDS: Sodium Chloride 0.9% 10 ML Syringe IV SCH ×3 (07:33→23:24)
[2019-06-13] MEDS: TIMOLOL MALEATE 0.5% EYEBOTH SCH ×2 (07:33→19:10)
[2019-06-13] MEDS: Heparin Sodium 100 Units/ML 3 ML Syringe IVPUSH SCH ×3 (07:33→23:24)
[2019-06-13] MEDS: Acetaminophen 325 MG Tab PO PRN ×3 (07:43→23:24)
[2019-06-13] MEDS: oxyCODONE 5 MG Tab PO PRN ×2 (18:01→23:25)
[2019-06-13] MEDS: LATANOPROST 0.005% EYEBOTH SCH (19:10)
[2019-06-13] MEDS: atorvaSTATin 10 MG Tab PO SCH (19:11)
[2019-06-13] MEDS: Cyclobenzaprine 10 MG Tab PO PRN (19:11)
[2019-06-14] MEDS: ceFAZolin 1 GM Vial IVPUSH SCH ×3 (07:27→23:35)
[2019-06-14] MEDS: Hydrochlorothiazide 25 MG Tab PO SCH (07:28)
[2019-06-14] MEDS: Acetaminophen 325 MG Tab PO PRN ×3 (07:28→23:35)
[2019-06-14] MEDS: Losartan 50 MG Tab PO SCH (07:28)
[2019-06-14] MEDS: metFORMIN 500 MG Tab PO SCH ×2 (07:29→17:52)
[2019-06-14] MEDS: Calcium Carbonate/Vitamin D3 1250 MG-200 Unit Tab PO SCH ×2 (07:29→17:52)
[2019-06-14] MEDS: Metoprolol Tartrate 25 MG Tab PO SCH ×2 (07:29→19:19)
[2019-06-14] MEDS: Aspirin 81 MG Tab.EC PO SCH ×2 (07:29→19:19)
[2019-06-14] MEDS: Heparin Sodium 100 Units/ML 3 ML Syringe IVPUSH SCH ×3 (07:29→23:35)
[2019-06-14] MEDS: Potassium Chloride 20 MEQ Tab.ER PO SCH (07:29)
[2019-06-14] MEDS: rOPINIRole 0.5 MG Tab PO SCH ×2 (07:29→19:19)
[2019-06-14] MEDS: Ferrous Sulfate 325 MG Tab PO SCH (07:29)
[2019-06-14] MEDS: TIMOLOL MALEATE 0.5% EYEBOTH SCH ×2 (07:30→19:21)
[2019-06-14] MEDS: Sodium Chloride 0.9% 10 ML Syringe IV SCH ×3 (07:30→23:35)
[2019-06-14] MEDS: oxyCODONE 5 MG Tab PO PRN ×2 (17:53→23:36)
[2019-06-14] MEDS: atorvaSTATin 10 MG Tab PO SCH (19:18)
[2019-06-14] MEDS: Cyclobenzaprine 10 MG Tab PO PRN (19:19)
[2019-06-14] MEDS: LATANOPROST 0.005% EYEBOTH SCH (19:20)
[2019-06-15] MEDS: Calcium Carbonate/Vitamin D3 1250 MG-200 Unit Tab PO SCH ×2 (07:54→17:32)
[2019-06-15] MEDS: Ferrous Sulfate 325 MG Tab PO SCH (07:54)
[2019-06-15] MEDS: metFORMIN 500 MG Tab PO SCH ×2 (07:54→17:32)
[2019-06-15] MEDS: Losartan 50 MG Tab PO SCH (07:54)
[2019-06-15] MEDS: Hydrochlorothiazide 25 MG Tab PO SCH (07:55)
[2019-06-15] MEDS: ceFAZolin 1 GM Vial IVPUSH SCH ×2 (07:55→15:28)
[2019-06-15] MEDS: Potassium Chloride 20 MEQ Tab.ER PO SCH (07:55)
[2019-06-15] MEDS: Aspirin 81 MG Tab.EC PO SCH ×2 (07:55→20:28)
[2019-06-15] MEDS: Metoprolol Tartrate 25 MG Tab PO SCH ×2 (07:55→20:28)
[2019-06-15] MEDS: rOPINIRole 0.5 MG Tab PO SCH ×2 (07:55→20:26)
[2019-06-15] MEDS: Sodium Chloride 0.9% 10 ML Syringe IV SCH ×2 (07:56→15:28)
[2019-06-15] MEDS: Heparin Sodium 100 Units/ML 3 ML Syringe IVPUSH SCH ×2 (07:56→15:28)
[2019-06-15] MEDS: TIMOLOL MALEATE 0.5% EYEBOTH SCH ×2 (07:56→20:29)
[2019-06-15] MEDS: Acetaminophen 325 MG Tab PO PRN (17:32)
[2019-06-15] MEDS: oxyCODONE 5 MG Tab PO PRN (17:33)
[2019-06-15] MEDS: atorvaSTATin 10 MG Tab PO SCH (20:26)
[2019-06-15] MEDS: LATANOPROST 0.005% EYEBOTH SCH (20:27)
[2019-06-16] MEDS: Sodium Chloride 0.9% 10 ML Syringe IV SCH ×3 (00:33→16:59)
[2019-06-16] MEDS: Sodium Chloride 0.9% 10 ML Syringe IV PRN (00:33)
[2019-06-16] MEDS: ceFAZolin 1 GM Vial IVPUSH SCH ×3 (00:33→16:59)
[2019-06-16] MEDS: oxyCODONE 5 MG Tab PO PRN ×2 (00:34→19:47)
[2019-06-16] MEDS: Cyclobenzaprine 10 MG Tab PO PRN (00:35)
[2019-06-16] MEDS: Heparin Sodium 100 Units/ML 3 ML Syringe IVPUSH SCH ×3 (00:36→17:00)
[2019-06-16] MEDS: Potassium Chloride 20 MEQ Tab.ER PO SCH (09:00)
[2019-06-16] MEDS: Calcium Carbonate/Vitamin D3 1250 MG-200 Unit Tab PO SCH ×2 (09:00→17:03)
[2019-06-16] MEDS: Losartan 50 MG Tab PO SCH (09:00)
[2019-06-16] MEDS: metFORMIN 500 MG Tab PO SCH ×2 (09:00→17:05)
[2019-06-16] MEDS: Aspirin 81 MG Tab.EC PO SCH ×2 (09:01→19:37)
[2019-06-16] MEDS: Hydrochlorothiazide 25 MG Tab PO SCH (09:01)
[2019-06-16] MEDS: rOPINIRole 0.5 MG Tab PO SCH ×2 (09:01→19:37)
[2019-06-16] MEDS: Metoprolol Tartrate 25 MG Tab PO SCH ×2 (09:01→19:38)
[2019-06-16] MEDS: TIMOLOL MALEATE 0.5% EYEBOTH SCH ×2 (09:02→19:36)
[2019-06-16] MEDS: Ferrous Sulfate 325 MG Tab PO SCH (09:02)
--- NOTE | 2019-06-16 17:43 | DISCH ---
HISTORY OF PRESENT ILLNESS: Gauri is a very pleasant 73-year-old woman who was admitted to the swing bed unit at [facility] for ongoing rehab secondary to weakness and deconditioning. The patient originally had a total left knee replacement for severe osteoarthritis on 03/24/[address] [facility] per Dr. Fox. The patient did do well postoperatively, however, in mid April, she sustained a mechanical fall and required repair of a quadriceps tendon on 04/21/2019. The patient had increasing drainage from her incision, which she had described as yellow/green color. The patient did have a wound dehiscence. She also had unusual amounts of pain. There apparently was a concern for deeper infection aside from the obvious superficial incisional infection. The patient underwent an I and D of the left knee as well as a quadriceps tendon repair per Dr. Fox on 05/05/2019. The patient had a wound VAC placed. The patient had a PICC line that was placed on 05/07/2019 for IV antibiotics, which were medically necessary due to her postop infection. DISCHARGE DISPOSITION: Home with home health care. CONSULTATION: Physical and Occupational Therapy. DISCHARGE LABORATORY WORK: None. DISCHARGE IMAGING STUDIES: None. HOSPITAL COURSE: The patient did very well during her swing bed stay. The patient remained hemodynamically stable and afebrile. The patient did require consultations with Infectious Disease and the Wound Clinic. The Infectious Disease provider had recommended to continue the IV antibiotics through 05/17 and the patient may then be transitioned to oral antibiotics. The thought was the patient may have an infected prosthesis. The patient is working with the Wound Clinic at [facility] for a tunneling wound on the superior aspect of the incision. The patient has been having daily dressing changes to the open wound that is on the upper anterior left thigh. The patient has progressed well with physical therapy. The patient will be discharged home with home health for dressing changes, medication administration, and physical therapy. The patient did not have any issues with bowel movements or urination. She tolerated her diet okay. REVIEW OF SYSTEMS: General: Negative. Respiratory: Negative. Cardiovascular: Negative. Musculoskeletal: Intermittent left knee pain. Neurological: Negative. DISCHARGE PHYSICAL EXAMINATION: General Presentation: The patient is alert and oriented x3, in no acute distress, cooperative. Respiratory: Lungs are clear to auscultation. Cardiovascular: Regular rate and rhythm, no murmur. Abdomen: Bowel sounds are active x4, abdomen is nontender. Skin: See nursing documentation of the wound. Neurological: The patient is alert, sensation is intact, the patient is cooperative. No focal neurological deficits. DISCHARGE MEDICATIONS: 1. Acetaminophen 650 mg 1 tablet p.o. every 6 hours as needed. 2. Aspirin 81 mg 1 tablet p.o. twice daily. 3. Atorvastatin 20 mg 1 tablet p.o. daily. 4. Calcium carbonate 1 tablet p.o. twice daily. 5. Clobetasol 1 application topical twice daily as needed. 6. Cyclobenzaprine 10 mg 1 tablet p.o. every 8 hours as needed. 7. Docusate sodium 100 mg 1 tablet p.o. twice daily. 8. Ferrous sulfate 325 mg 1 tablet p.o. daily. 9. Valsartan/hydrochlorothiazide 320 mg/25 mg 1 tablet p.o. daily. 10.Latanoprost 1 drop to both eyes at bedtime. 11.Metformin 500 mg 1 tablet p.o. daily. 12.Metoprolol 12.5 mg 1 tablet p.o. twice daily. 13.Zofran 4 mg 1 tablet p.o. every 6 hours as needed. 14.Oxycodone 5 mg 1 tablet p.o. every 6 hours as needed. 15.Potassium chloride 40 mEq 1 tablet p.o. daily. 16.Ropinirole 0.25 mg 1 tablet p.o. twice daily. 17.Timolol maleate 1 drop to both eyes twice daily. 18.Levaquin 750 mg 1 tablet p.o. daily for 6 weeks 19.Duricef 500 mg 1 capsule p.o. twice daily. ASSESSMENT: 1. Weakness and deconditioning. 2. Total knee arthroplasty, left. 3. Postop wound infection, left knee. 4. Left knee pain. 5. Quadriceps tendon rupture. 6. Status post tendon repair. 7. Diabetes mellitus. 8. Essential hypertension. PLAN: The patient will be discharged from [facility] on 06/17/2019. The patient will have her PICC line discontinued prior to discharge. The patient will be transitioned over to Duricef 500 mg twice daily concurrently with Levaquin 750 mg daily per Infectious Disease. We will continue all other home medications the same. Continue with the same home diet. The patient will follow up with GRISELDA Treadwell, in 1 week for a 1-week posthospital discharge. We will continue the patient on twice daily aspirin for DVT prophylaxis. [id number] ENCOUNTER DOCUMENTATION: Date of encounter: 06/17/2019. Patient's name: Gauri Carolina. Date of : 1945. I certify that Gauri Carolina is under my care and that I, had a [id number] encounter that meets the physician [id number] requirements on 06/17/2019. This date must match the discharge summary progress note/clinic visit documentation supporting this information. The encounter with the patient was in whole or in part for the following medical condition, which is primary reason for home healthcare: Total left knee arthroplasty, weakness and deconditioning, daily dressing changes, administration of medication, physical therapy for the weakness and deconditioning. My clinical findings support the need for the services because of inability to safely get to outpatient facility for therapy due to fall risk, lack of muscle coordination and tone, and profound weakness. Further, I certify that my clinical findings support that this patient is homebound (i.e., absences from home require considerable and taxing effort, or are for medical reasons, or for restorationist services, or infrequent, or of short duration when from other reasons) because the patient is unable to safely ambulate distances less than 20 feet, the patient experiences shortness of breath at rest and/or with daily activity, the patient requires frequent rest. Due to profound weakness and endurance, the patient requires use of assistive device and/or use of hernandez, furniture, to ambulate (high fall risk), and the patient requires assistance of another person to leave the home. Certification: For home health services. I certify that Gauri Carolina meets the homebound requirements for the peer source and has a need for intermittent custodial, physical therapy in home for the diagnosis currently outlined in the initial plan of care. The services will continue to be monitored by Dr. Nevin Weathers. This physician will periodically review and update the plan of care as required. My signature indicates that this supplemental documentation has been incorporated in the patient's medical record. NOTE: This patient was seen and examined by me as an [facility] provider TB: 06/16/2019 11:34:56 MODL: 06/16/2019 17:37:03 /[id number]
[2019-06-16] MEDS: LATANOPROST 0.005% EYEBOTH SCH (19:36)
[2019-06-16] MEDS: Cefadroxil 500 MG Cap PO SCH (19:37)
[2019-06-16] MEDS: atorvaSTATin 10 MG Tab PO SCH (19:37)
[2019-06-16] MEDS: Acetaminophen 325 MG Tab PO PRN (19:48)
[2019-06-17] MEDS: rOPINIRole 0.5 MG Tab PO SCH (08:06)
[2019-06-17] MEDS: metFORMIN 500 MG Tab PO SCH (08:06)
[2019-06-17] MEDS: Metoprolol Tartrate 25 MG Tab PO SCH (08:06)
[2019-06-17] MEDS: Potassium Chloride 20 MEQ Tab.ER PO SCH (08:06)
[2019-06-17] MEDS: Hydrochlorothiazide 25 MG Tab PO SCH (08:06)
[2019-06-17] MEDS: Aspirin 81 MG Tab.EC PO SCH (08:06)
[2019-06-17] MEDS: Ferrous Sulfate 325 MG Tab PO SCH (08:06)
[2019-06-17] MEDS: Calcium Carbonate/Vitamin D3 1250 MG-200 Unit Tab PO SCH (08:06)
[2019-06-17] MEDS: Cefadroxil 500 MG Cap PO SCH (08:06)
[2019-06-17] MEDS: TIMOLOL MALEATE 0.5% EYEBOTH SCH (08:07)
[2019-06-17] MEDS: Losartan 50 MG Tab PO SCH (08:07)
[2019-06-17] MEDS ORDERED: Triamcinolone Acetonide 0.1% Crm 15 GM Tube TOP SCH (10:00)
== END 2019-06-17 10:15 | disposition home health service (06) | DRG 863 ==
LOC: VM.MS 13:44
PROVIDERS: ADMIT Nurse Practitioner Family; ATTEND Nurse Practitioner Family
DX: T81.41XA Infection following a procedure, superficial incisional surgical site, initial encounter (principal); B95.61 Methicillin susceptible Staphylococcus aureus infection as the cause of diseases classified elsewhere; R53.1 Weakness; Z96.652 Presence of left artificial knee joint; E11.9 Type 2 diabetes mellitus without complications; I10 Essential (primary) hypertension; H43.819 Vitreous degeneration, unspecified eye; H52.4 Presbyopia; H52.10 Myopia, unspecified eye; H40.10X0 Unspecified open-angle glaucoma, stage unspecified; G43.909 Migraine, unspecified, not intractable, without status migrainosus; S76.112D Strain of left quadriceps muscle, fascia and tendon, subsequent encounter; K21.9 Gastro-esophageal reflux disease without esophagitis; E78.5 Hyperlipidemia, unspecified; G25.81 Restless legs syndrome; G56.01 Carpal tunnel syndrome, right upper limb; N39.3 Stress incontinence (female) (male); M19.90 Unspecified osteoarthritis, unspecified site; M71.20 Synovial cyst of popliteal space [Baker], unspecified knee; E66.9 Obesity, unspecified; Z98.890 Other specified postprocedural states; Z79.82 Long term (current) use of aspirin; Z79.899 Other long term (current) drug therapy; Z79.84 Long term (current) use of oral hypoglycemic drugs; Z68.36 Body mass index [BMI] 36.0-36.9, adult
CPT/HCPCS: 36415; 80048; 82550; 82962; 84460; 85025; 87493; 97110-GP; 97116-GP; 97161-GP; 97530-GP; A9270-GY; J0690; J1642

== ENCOUNTER 2019-07-07 11:23 | Inpatient (IN) | payer MEDICARE, OTHER ==
[2019-07-07] MEDS ORDERED: Scopolamine 1.5 MG Transdermal Patch TOP PRN (13:05)
[2019-07-07] MEDS ORDERED: Ondansetron 4 MG Tab.DIS PO PRN (13:05)
[2019-07-07] MEDS ORDERED: Clobetasol 0.05% Crm 30 GM Tube TOP PRN (13:05)
[2019-07-07] MEDS ORDERED: Ampicillin/Sulbactam Na 3 GM in Sodium Chloride 0.9% 100 ML IV ONE (13:15)
[2019-07-07] MEDS ORDERED: Heparin Sodium 100 Units/ML 3 ML Syringe IVPUSH ONE (14:00)
[2019-07-07] MEDS: Heparin Sodium 100 Units/ML 3 ML Syringe IVPUSH SCH (18:00)
[2019-07-07] MEDS: Ampicillin/Sulbactam Na 3 GM in Sodium Chloride 0.9% 100 ML IV SCH ×2 (18:01→23:32)
[2019-07-07] MEDS: hydrOXYzine HCl 25 MG Tab PO PRN (18:03)
[2019-07-07] MEDS: rOPINIRole 0.5 MG Tab PO SCH (20:03)
[2019-07-07] MEDS: Gabapentin 300 MG Cap PO SCH (20:03)
[2019-07-07] MEDS: Aspirin 81 MG Tab.EC PO SCH (20:04)
[2019-07-07] MEDS: atorvaSTATin 10 MG Tab PO SCH (20:04)
[2019-07-07] MEDS: Cyclobenzaprine 10 MG Tab PO PRN (20:05)
[2019-07-07] MEDS: Calcium Carbonate/Vitamin D3 1250 MG-200 Unit Tab PO SCH (20:06)
[2019-07-07] MEDS: Metoprolol Tartrate 25 MG Tab PO SCH (20:06)
[2019-07-07] MEDS: Morphine 15 MG Tab PO PRN (20:07)
[2019-07-07] MEDS: Sodium Chloride 0.9% 10 ML Syringe IV PRN ×2 (20:10→23:32)
[2019-07-07] MEDS: Latanoprost 0.005% Ophth Soln 2.5 ML Bottle EYEBOTH SCH (20:11)
[2019-07-07] MEDS: Timolol Maleate 0.5% Ophth Soln 5 ML Bottle EYEBOTH SCH (20:11)
[2019-07-07] MEDS: Polyethylene Glycol 3350 Powder 17 GM Packet PO SCH (20:12)
[2019-07-08] MEDS: Sodium Chloride 0.9% 10 ML Syringe FLUSH SCH ×4 (00:29→17:52)
[2019-07-08] MEDS: Heparin Sodium 100 Units/ML 3 ML Syringe IVPUSH SCH ×4 (00:29→17:52)
[2019-07-08] MEDS: hydrOXYzine HCl 25 MG Tab PO PRN ×3 (00:30→17:52)
[2019-07-08] MEDS: Morphine 15 MG Tab PO PRN ×3 (00:30→17:52)
[2019-07-08] MEDS: Ampicillin/Sulbactam Na 3 GM in Sodium Chloride 0.9% 100 ML IV SCH ×4 (05:40→23:48)
[2019-07-08] MEDS: Sodium Chloride 0.9% 10 ML Syringe IV PRN ×2 (05:41→23:48)
[2019-07-08] MEDS ORDERED: VALSARTAN HCTZ PO SCH (08:00)
[2019-07-08] MEDS: Loratadine 10 MG Tab PO SCH (08:39)
[2019-07-08] MEDS: Calcium Carbonate/Vitamin D3 1250 MG-200 Unit Tab PO SCH ×2 (08:39→19:53)
[2019-07-08] MEDS: Losartan 50 MG Tab PO SCH (08:39)
[2019-07-08] MEDS: Ferrous Sulfate 325 MG Tab PO SCH (08:41)
[2019-07-08] MEDS: Folic Acid 1 MG Tab PO SCH (08:41)
[2019-07-08] MEDS: metFORMIN 500 MG Tab PO SCH ×2 (08:44→17:52)
[2019-07-08] MEDS: Aspirin 81 MG Tab.EC PO SCH ×2 (08:44→19:54)
[2019-07-08] MEDS: Hydrochlorothiazide 25 MG Tab PO SCH (08:44)
[2019-07-08] MEDS: Potassium Chloride 20 MEQ Tab.ER PO SCH (08:45)
[2019-07-08] MEDS: Metoprolol Tartrate 25 MG Tab PO SCH ×2 (08:45→19:53)
[2019-07-08] MEDS: Polyethylene Glycol 3350 Powder 17 GM Packet PO SCH ×2 (08:47→19:55)
[2019-07-08] MEDS: Gabapentin 300 MG Cap PO SCH ×3 (08:48→19:51)
[2019-07-08] MEDS: rOPINIRole 0.5 MG Tab PO SCH ×2 (08:48→19:54)
[2019-07-08] MEDS: Multivitamins with Iron/Calcium/Folic Acid/Minerals Tab PO SCH (08:50)
[2019-07-08] MEDS: Cyclobenzaprine 10 MG Tab PO PRN ×2 (08:53→19:51)
[2019-07-08] MEDS: Timolol Maleate 0.5% Ophth Soln 5 ML Bottle EYEBOTH SCH ×2 (09:01→19:55)
--- NOTE | 2019-07-08 11:17 | HP ---
CHIEF COMPLAINT: Weakness and deconditioning. HISTORY OF PRESENT ILLNESS: A 73-year-old female patient was admitted to the swing bed unit at [facility] after she underwent a revision of a total left knee arthroplasty. INTERVAL HISTORY: The patient originally had a total knee arthroplasty on 03/24/[address] Fox at [facility]. The patient seemed to do well after surgery until she states around 04/21/2019. The patient had a quadriceps tendon repair at [facility] on 04/21/2019. We began following the erythema at surgical site. Therefore, underwent incision and drainage on 05/05/2019 . The patient was then admitted to the swing bed unit at [facility] on 05/08/2019 for antibiotic therapy. The patient was on this swing bed unit for 6 weeks, at which time she was able to be discharged home on 06/17/2019. The patient has been following with Infectious Disease through [facility] for management of her antibiotics. The followup visit with Infectious Disease for sinus tract tunneling and drainage. The recommendation was made to the patient for a revision of her total knee arthroplasty. The patient was then seen by Dr. Antonino Webb, who recommended a total left knee arthroplasty revision. On 06/25/2019, the patient did have a revision of the left total knee arthroplasty stage I. The patient was monitored at [facility] postsurgery and was able to be discharged to [facility] Swing Bed today. The patient was originally started on IV Ancef, but this was discontinued and switched to Unasyn. Infectious Disease recommends the Unasyn due to MSSA and Enterococcus faecalis infection. The patient will be on IV antibiotics 4 times a day for the next 6 weeks. The last dose will be on 08/16/2019. The patient apparently did not have any postop complications according to [place]'s medical record. The patient was able to be weightbearing as tolerated. The patient did need to have placement of a VAC dressing over the incision site for purulent drainage. The patient offers no specific complaints today. The patient states that her left lower extremity is more swollen than usual, however, this is to be expected. The patient has denied any current fevers or chills. The patient states that her pain has been well managed on her current pain regimen. The patient has not had any focal neurological deficits. The patient denies any shortness of breath or cough. No chest pain or palpitations. The patient denies any numbness, tingling, or paresthesias to the left lower extremity. The patient states that overall she feels she is doing well. PAST MEDICAL HISTORY: 1. Arthritis. 2. Ansari cyst. 3. Diabetes mellitus type 2, on oral medication. 4. Hypertension secondary to diabetes mellitus. 5. Hyperlipidemia secondary to diabetes mellitus. 6. Osteoarthritis. 7. Obesity. ACTIVE PROBLEM LIST: 1. Vitreous degeneration. 2. Myopia. 3. Presbyopia. 4. Open angle glaucoma. 5. Classical migraine. 6. Diabetes mellitus type 2, on oral medication. 7. Hypertension secondary to diabetes. 8. Esophageal reflux. 9. Hyperlipidemia associated with type 2 diabetes. 10.Restless legs syndrome. 11.Right carpal tunnel syndrome. 12.Stress incontinence. PAST SURGICAL HISTORY: 1. Carpal tunnel release. 2. Joint replacement, left knee. 3. Right knee scope. SOCIAL HISTORY: The patient is . The patient does not smoke cigarettes. The patient does not consume any alcohol. FAMILY HISTORY: Noncontributory. ALLERGIES: No known allergies. MEDICATIONS: 1. Acetaminophen 1000 mg every 4 hours as needed. 2. Unasyn 3 g IV every 4 hours. Stop date 08/16/2019. 3. Aspirin 81 mg 1 tablet p.o. twice daily. 4. Atorvastatin 20 mg 1 tablet p.o. at bedtime. 5. Calcium carbonate/vitamin D 1 tablet p.o. twice daily. 6. Clobetasol topical twice daily as needed. 7. Cyclobenzaprine 5 to 10 mg 1 tablet p.o. every 8 hours as needed. 8. Docusate sodium 2 tablets p.o. twice daily. 9. Ferrous sulfate 325 mg 1 tablet p.o. daily. 10.Folic acid 1 mg 1 tablet p.o. daily. 11.Gabapentin 300 mg 1 capsule p.o. 3 times daily. 12.Hydrochlorothiazide 25 mg 1 tablet p.o. daily. 13.Hydroxyzine 25 mg 1 capsule p.o. every 6 hours as needed. 14.Latanoprost 1 drop to both eyes at bedtime. 15.Loratadine 10 mg 1 tablet p.o. daily. 16.Losartan 150 mg 1 tablet p.o. daily. 17.Metformin 500 mg 1 tablet p.o. daily. 18.Metformin 250 mg daily at bedtime. 19.Metoprolol tartrate 12.5 mg 1 tablet p.o. twice daily. 20.Morphine 15 mg 1 tablet p.o. every 4 hours as needed. 21.Multivitamin 1 tablet p.o. daily. 22.Ondansetron 4 mg 1 tablet p.o. every 6 hours as needed. 23.Polyethylene glycol 17 g p.o. twice daily. 24.Potassium chloride 20 mEq 1 tablet p.o. daily. 25.Ropinirole 0.25 mg 1 tablet p.o. twice daily. 26.Scopolamine transdermal 1.5 mg topical every 3 days as needed. 27.Timolol maleate 1 drop to both eyes twice daily. REVIEW OF SYSTEMS: Constitutional: Negative. Cardiac: Negative. Respiratory: Negative. GI: Negative. Musculoskeletal: See HPI. Neurological: Negative. Skin: See HPI. PHYSICAL EXAMINATION: General presentation: The patient is not in any acute distress. The patient is cooperative. The patient is pleasant and conversive. Cardiac: Regular rate and rhythm. No murmur. Extremities: Radial pulses are +2 bilaterally. Dorsalis pedis pulse is +2 on the right, +1 on the left. Respiratory: Lungs are clear bilaterally without any wheezes, rales, or rhonchi. GI: Abdomen is soft, nontender. Bowel sounds are hypoactive x4. Skin: The patient does have skin excoriation around the incision site. The patient has scattered areas throughout her body that are rasped from itching. Musculoskeletal: Left lower extremity is swollen around the knee. VAC dressing is intact. The patient has some marginal erythema. The area is tender to palpation. Neurological: The patient is alert. The patient is oriented to person, place, and time. Sensation is intact. ASSESSMENT: 1. Total left knee arthroplasty, stage I revision. 2. Infection of prosthetic knee joint. 3. History of left total knee arthroplasty on 03/24/2019. 4. 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 5. Diabetes mellitus type 2, on oral medication. 6. Hypertension associated with diabetes. 7. Hyperlipidemia secondary to diabetes type 2. 8. Weakness. 9. Deconditioning. 10.Osteoarthritis. 11.Restless legs syndrome. 12.Gastroesophageal reflux disease. 13.Stress incontinence. PLAN: The patient will be admitted to the swing bed unit at [facility] for the above-mentioned diagnosis. The patient will continue on Unasyn 3 g IV 4 times a day for 6 weeks (last dose 08/16/2019). The patient is on Unasyn to cover for MSSA and Enterococcus faecalis infection coverage. Once the patient is discharged, per Infectious Disease, the patient will be on Augmentin twice daily lifelong. The patient will be covered with DVT prophylaxis on the aspirin 81 mg twice daily per orthopedic recommendation. The patient will be weightbearing as tolerated. The VAC dressing will stay in place until the battery runs . Then, the incision will be packed with 4x4s, covered with an ABD, then Mepilex tape. The patient will be consulted with Physical and Occupational Therapy. We will do Accu-Cheks once daily. The patient will be on an ADA diet. The patient's discharge hemoglobin was 7.5 from [place]. Therefore, I will recheck a CBC on Saturday, 07/09, to reevaluate her hemoglobin. No additional imaging studies are medically necessary. The patient is a full code 1. The patient does wish to be transferred to a higher level of care should the need arise. We will continue the patient on all other home medications at the same dose. Plan for pain management is to wean the patient to only [id number] analgesic and discontinue any narcotics/opioids. The patient will need laboratory next week and faxed to [facility] Infectious Disease, attention to Dr. Saucedo. Plan at this point is the patient will remain admitted to the swing bed unit at [facility] for the full 6 weeks of IV antibiotics, anticipating everything goes well. We will continue to monitor the patient per swing bed protocol/policy. TB: 07/07/2019 20:34:06 MODL: 07/08/2019 02:59:26 /[id number]
[2019-07-08] MEDS: Acetaminophen 500 MG Tab PO PRN (11:33)
[2019-07-08] MEDS: atorvaSTATin 10 MG Tab PO SCH (19:52)
[2019-07-08] MEDS: Latanoprost 0.005% Ophth Soln 2.5 ML Bottle EYEBOTH SCH (19:55)
[2019-07-09] MEDS: hydrOXYzine HCl 25 MG Tab PO PRN ×3 (00:16→17:37)
[2019-07-09] MEDS: Morphine 15 MG Tab PO PRN ×3 (00:17→20:24)
[2019-07-09] MEDS: Sodium Chloride 0.9% 10 ML Syringe FLUSH SCH ×4 (00:20→17:35)
[2019-07-09] MEDS: Heparin Sodium 100 Units/ML 3 ML Syringe IVPUSH SCH ×4 (00:20→17:35)
[2019-07-09] MEDS: Ampicillin/Sulbactam Na 3 GM in Sodium Chloride 0.9% 100 ML IV SCH ×3 (05:39→17:35)
[2019-07-09] MEDS: Sodium Chloride 0.9% 10 ML Syringe IV PRN (05:39)
[2019-07-09] MEDS: Losartan 50 MG Tab PO SCH (07:34)
[2019-07-09] MEDS: Multivitamins with Iron/Calcium/Folic Acid/Minerals Tab PO SCH (07:35)
[2019-07-09] MEDS: Potassium Chloride 20 MEQ Tab.ER PO SCH (07:35)
[2019-07-09] MEDS: Aspirin 81 MG Tab.EC PO SCH ×2 (07:35→20:16)
[2019-07-09] MEDS: Metoprolol Tartrate 25 MG Tab PO SCH ×2 (07:35→20:15)
[2019-07-09] MEDS: Gabapentin 300 MG Cap PO SCH ×3 (07:35→20:17)
[2019-07-09] MEDS: Hydrochlorothiazide 25 MG Tab PO SCH (07:35)
[2019-07-09] MEDS: rOPINIRole 0.5 MG Tab PO SCH ×2 (07:35→20:16)
[2019-07-09] MEDS: Ferrous Sulfate 325 MG Tab PO SCH (07:36)
[2019-07-09] MEDS: metFORMIN 500 MG Tab PO SCH ×2 (07:36→17:35)
[2019-07-09] MEDS: Polyethylene Glycol 3350 Powder 17 GM Packet PO SCH ×2 (07:36→20:29)
[2019-07-09] MEDS: Timolol Maleate 0.5% Ophth Soln 5 ML Bottle EYEBOTH SCH ×2 (07:36→20:33)
[2019-07-09] MEDS: Calcium Carbonate/Vitamin D3 1250 MG-200 Unit Tab PO SCH ×2 (07:36→20:16)
[2019-07-09] MEDS: Loratadine 10 MG Tab PO SCH (07:36)
[2019-07-09] MEDS: Folic Acid 1 MG Tab PO SCH (07:36)
[2019-07-09] MEDS: atorvaSTATin 10 MG Tab PO SCH (20:14)
[2019-07-09] MEDS: Latanoprost 0.005% Ophth Soln 2.5 ML Bottle EYEBOTH SCH (20:33)
[2019-07-10] MEDS: Ampicillin/Sulbactam Na 3 GM in Sodium Chloride 0.9% 100 ML IV SCH ×5 (00:31→23:29)
[2019-07-10] MEDS: Sodium Chloride 0.9% 10 ML Syringe FLUSH SCH ×4 (01:25→18:02)
[2019-07-10] MEDS: Heparin Sodium 100 Units/ML 3 ML Syringe IVPUSH SCH ×4 (01:26→18:01)
[2019-07-10] MEDS: Morphine 15 MG Tab PO PRN ×3 (05:28→21:08)
[2019-07-10] MEDS: hydrOXYzine HCl 25 MG Tab PO PRN ×3 (05:29→21:09)
[2019-07-10] MEDS: Gabapentin 300 MG Cap PO SCH ×3 (08:39→21:03)
[2019-07-10] MEDS: Folic Acid 1 MG Tab PO SCH (08:40)
[2019-07-10] MEDS: rOPINIRole 0.5 MG Tab PO SCH ×2 (08:40→21:01)
[2019-07-10] MEDS: Losartan 50 MG Tab PO SCH (08:40)
[2019-07-10] MEDS: Potassium Chloride 20 MEQ Tab.ER PO SCH (08:40)
[2019-07-10] MEDS: Aspirin 81 MG Tab.EC PO SCH ×2 (08:40→21:03)
[2019-07-10] MEDS: Hydrochlorothiazide 25 MG Tab PO SCH (08:41)
[2019-07-10] MEDS: Metoprolol Tartrate 25 MG Tab PO SCH ×2 (08:41→21:03)
[2019-07-10] MEDS: Calcium Carbonate/Vitamin D3 1250 MG-200 Unit Tab PO SCH ×2 (08:41→21:04)
[2019-07-10] MEDS: Loratadine 10 MG Tab PO SCH (08:42)
[2019-07-10] MEDS: Ferrous Sulfate 325 MG Tab PO SCH (08:42)
[2019-07-10] MEDS: Polyethylene Glycol 3350 Powder 17 GM Packet PO SCH ×2 (08:42→21:05)
[2019-07-10] MEDS: metFORMIN 500 MG Tab PO SCH ×2 (08:42→18:00)
[2019-07-10] MEDS: Multivitamins with Iron/Calcium/Folic Acid/Minerals Tab PO SCH (08:42)
[2019-07-10] MEDS: Timolol Maleate 0.5% Ophth Soln 5 ML Bottle EYEBOTH SCH ×2 (08:43→21:05)
[2019-07-10] MEDS: atorvaSTATin 10 MG Tab PO SCH (21:02)
[2019-07-10] MEDS: Latanoprost 0.005% Ophth Soln 2.5 ML Bottle EYEBOTH SCH (21:05)
[2019-07-11] MEDS: Heparin Sodium 100 Units/ML 3 ML Syringe IVPUSH SCH ×4 (00:09→17:54)
[2019-07-11] MEDS: Sodium Chloride 0.9% 10 ML Syringe FLUSH SCH ×4 (00:09→17:55)
[2019-07-11] MEDS: Ampicillin/Sulbactam Na 3 GM in Sodium Chloride 0.9% 100 ML IV SCH ×4 (05:20→23:33)
[2019-07-11] MEDS: hydrOXYzine HCl 25 MG Tab PO PRN ×2 (05:26→18:09)
[2019-07-11] MEDS: Morphine 15 MG Tab PO PRN ×2 (05:26→18:09)
[2019-07-11] MEDS: Hydrochlorothiazide 25 MG Tab PO SCH (07:59)
[2019-07-11] MEDS: Potassium Chloride 20 MEQ Tab.ER PO SCH (07:59)
[2019-07-11] MEDS: Multivitamins with Iron/Calcium/Folic Acid/Minerals Tab PO SCH (07:59)
[2019-07-11] MEDS: Calcium Carbonate/Vitamin D3 1250 MG-200 Unit Tab PO SCH ×2 (07:59→20:38)
[2019-07-11] MEDS: Gabapentin 300 MG Cap PO SCH ×3 (07:59→20:29)
[2019-07-11] MEDS: Ferrous Sulfate 325 MG Tab PO SCH (07:59)
[2019-07-11] MEDS: Losartan 50 MG Tab PO SCH (07:59)
[2019-07-11] MEDS: Folic Acid 1 MG Tab PO SCH (07:59)
[2019-07-11] MEDS: Aspirin 81 MG Tab.EC PO SCH ×2 (07:59→20:29)
[2019-07-11] MEDS: Loratadine 10 MG Tab PO SCH (07:59)
[2019-07-11] MEDS: Polyethylene Glycol 3350 Powder 17 GM Packet PO SCH ×2 (08:00→20:27)
[2019-07-11] MEDS: metFORMIN 500 MG Tab PO SCH ×2 (08:00→17:54)
[2019-07-11] MEDS: rOPINIRole 0.5 MG Tab PO SCH ×2 (08:00→20:28)
[2019-07-11] MEDS: Metoprolol Tartrate 25 MG Tab PO SCH ×2 (08:00→20:29)
[2019-07-11] MEDS: Timolol Maleate 0.5% Ophth Soln 5 ML Bottle EYEBOTH SCH ×2 (08:02→20:39)
[2019-07-11] MEDS: atorvaSTATin 10 MG Tab PO SCH (20:27)
[2019-07-11] MEDS: Latanoprost 0.005% Ophth Soln 2.5 ML Bottle EYEBOTH SCH (20:38)
[2019-07-12] MEDS: Heparin Sodium 100 Units/ML 3 ML Syringe IVPUSH SCH ×4 (00:11→18:13)
[2019-07-12] MEDS: Sodium Chloride 0.9% 10 ML Syringe FLUSH SCH ×4 (00:11→18:16)
[2019-07-12] MEDS: hydrOXYzine HCl 25 MG Tab PO PRN ×3 (00:13→18:16)
[2019-07-12] MEDS: Ampicillin/Sulbactam Na 3 GM in Sodium Chloride 0.9% 100 ML IV SCH ×4 (05:35→23:33)
[2019-07-12] MEDS: Timolol Maleate 0.5% Ophth Soln 5 ML Bottle EYEBOTH SCH ×2 (07:52→20:47)
[2019-07-12] MEDS: Multivitamins with Iron/Calcium/Folic Acid/Minerals Tab PO SCH (07:53)
[2019-07-12] MEDS: Ferrous Sulfate 325 MG Tab PO SCH (07:53)
[2019-07-12] MEDS: Hydrochlorothiazide 25 MG Tab PO SCH (07:53)
[2019-07-12] MEDS: Loratadine 10 MG Tab PO SCH (07:53)
[2019-07-12] MEDS: metFORMIN 500 MG Tab PO SCH ×2 (07:53→18:14)
[2019-07-12] MEDS: Calcium Carbonate/Vitamin D3 1250 MG-200 Unit Tab PO SCH ×2 (07:53→20:33)
[2019-07-12] MEDS: Aspirin 81 MG Tab.EC PO SCH ×2 (07:53→20:33)
[2019-07-12] MEDS: Gabapentin 300 MG Cap PO SCH ×3 (07:53→20:33)
[2019-07-12] MEDS: rOPINIRole 0.5 MG Tab PO SCH ×2 (07:53→20:32)
[2019-07-12] MEDS: Potassium Chloride 20 MEQ Tab.ER PO SCH (07:54)
[2019-07-12] MEDS: Folic Acid 1 MG Tab PO SCH (07:54)
[2019-07-12] MEDS: Metoprolol Tartrate 25 MG Tab PO SCH ×2 (07:54→20:33)
[2019-07-12] MEDS: Losartan 50 MG Tab PO SCH (07:54)
[2019-07-12] MEDS: Polyethylene Glycol 3350 Powder 17 GM Packet PO SCH (07:56)
[2019-07-12] MEDS: Morphine 15 MG Tab PO PRN ×2 (07:59→18:14)
[2019-07-12] MEDS ORDERED: Polyethylene Glycol 3350 Powder 17 GM Packet PO PRN (08:22)
[2019-07-12] MEDS: Cyclobenzaprine 10 MG Tab PO PRN (20:32)
[2019-07-12] MEDS: atorvaSTATin 10 MG Tab PO SCH (20:32)
[2019-07-12] MEDS: Sodium Chloride 0.9% 10 ML Syringe IV PRN ×2 (20:36→23:34)
[2019-07-12] MEDS: Latanoprost 0.005% Ophth Soln 2.5 ML Bottle EYEBOTH SCH (20:47)
[2019-07-13] MEDS: hydrOXYzine HCl 25 MG Tab PO PRN ×4 (00:17→17:46)
[2019-07-13] MEDS: Morphine 15 MG Tab PO PRN ×3 (00:17→17:45)
[2019-07-13] MEDS: Sodium Chloride 0.9% 10 ML Syringe FLUSH SCH ×4 (00:18→17:49)
[2019-07-13] MEDS: Heparin Sodium 100 Units/ML 3 ML Syringe IVPUSH SCH ×4 (00:18→17:49)
[2019-07-13] MEDS: Ampicillin/Sulbactam Na 3 GM in Sodium Chloride 0.9% 100 ML IV SCH ×4 (05:38→23:58)
[2019-07-13] MEDS: Sodium Chloride 0.9% 10 ML Syringe IV PRN ×3 (05:40→23:59)
[2019-07-13] MEDS: Losartan 50 MG Tab PO SCH (08:13)
[2019-07-13] MEDS: Folic Acid 1 MG Tab PO SCH (08:14)
[2019-07-13] MEDS: metFORMIN 500 MG Tab PO SCH ×2 (08:14→17:46)
[2019-07-13] MEDS: Potassium Chloride 20 MEQ Tab.ER PO SCH (08:14)
[2019-07-13] MEDS: Aspirin 81 MG Tab.EC PO SCH ×2 (08:14→20:03)
[2019-07-13] MEDS: Metoprolol Tartrate 25 MG Tab PO SCH ×2 (08:14→20:02)
[2019-07-13] MEDS: Loratadine 10 MG Tab PO SCH (08:14)
[2019-07-13] MEDS: Ferrous Sulfate 325 MG Tab PO SCH (08:14)
[2019-07-13] MEDS: Calcium Carbonate/Vitamin D3 1250 MG-200 Unit Tab PO SCH ×2 (08:14→20:03)
[2019-07-13] MEDS: Hydrochlorothiazide 25 MG Tab PO SCH (08:14)
[2019-07-13] MEDS: rOPINIRole 0.5 MG Tab PO SCH ×2 (08:15→20:03)
[2019-07-13] MEDS: Multivitamins with Iron/Calcium/Folic Acid/Minerals Tab PO SCH (08:15)
[2019-07-13] MEDS: Gabapentin 300 MG Cap PO SCH ×3 (08:16→20:03)
[2019-07-13] MEDS: Timolol Maleate 0.5% Ophth Soln 5 ML Bottle EYEBOTH SCH ×2 (08:18→19:58)
[2019-07-13] MEDS: Latanoprost 0.005% Ophth Soln 2.5 ML Bottle EYEBOTH SCH (19:57)
[2019-07-13] MEDS: Cyclobenzaprine 10 MG Tab PO PRN (20:02)
[2019-07-13] MEDS: atorvaSTATin 10 MG Tab PO SCH (20:03)
[2019-07-14] MEDS: Morphine 15 MG Tab PO PRN ×3 (00:33→17:50)
[2019-07-14] MEDS: hydrOXYzine HCl 25 MG Tab PO PRN ×4 (00:34→17:51)
[2019-07-14] MEDS: Sodium Chloride 0.9% 10 ML Syringe FLUSH SCH ×4 (00:35→17:51)
[2019-07-14] MEDS: Heparin Sodium 100 Units/ML 3 ML Syringe IVPUSH SCH ×4 (00:35→17:51)
[2019-07-14] MEDS: Ampicillin/Sulbactam Na 3 GM in Sodium Chloride 0.9% 100 ML IV SCH ×4 (05:56→23:31)
[2019-07-14] MEDS: Sodium Chloride 0.9% 10 ML Syringe IV PRN ×3 (05:57→23:32)
[2019-07-14] MEDS: rOPINIRole 0.5 MG Tab PO SCH ×2 (08:02→20:29)
[2019-07-14] MEDS: Losartan 50 MG Tab PO SCH (08:03)
[2019-07-14] MEDS: Gabapentin 300 MG Cap PO SCH ×3 (08:03→20:31)
[2019-07-14] MEDS: Potassium Chloride 20 MEQ Tab.ER PO SCH (08:03)
[2019-07-14] MEDS: Hydrochlorothiazide 25 MG Tab PO SCH (08:03)
[2019-07-14] MEDS: Calcium Carbonate/Vitamin D3 1250 MG-200 Unit Tab PO SCH ×2 (08:04→20:30)
[2019-07-14] MEDS: Loratadine 10 MG Tab PO SCH (08:04)
[2019-07-14] MEDS: Aspirin 81 MG Tab.EC PO SCH ×2 (08:04→20:30)
[2019-07-14] MEDS: Metoprolol Tartrate 25 MG Tab PO SCH ×2 (08:04→20:30)
[2019-07-14] MEDS: Folic Acid 1 MG Tab PO SCH (08:04)
[2019-07-14] MEDS: metFORMIN 500 MG Tab PO SCH ×2 (08:04→17:51)
[2019-07-14] MEDS: Multivitamins with Iron/Calcium/Folic Acid/Minerals Tab PO SCH (08:04)
[2019-07-14] MEDS: Ferrous Sulfate 325 MG Tab PO SCH (08:04)
[2019-07-14] MEDS: Timolol Maleate 0.5% Ophth Soln 5 ML Bottle EYEBOTH SCH ×2 (08:06→20:29)
[2019-07-14] MEDS: Latanoprost 0.005% Ophth Soln 2.5 ML Bottle EYEBOTH SCH (20:29)
[2019-07-14] MEDS: atorvaSTATin 10 MG Tab PO SCH (20:29)
[2019-07-14] MEDS: Cyclobenzaprine 10 MG Tab PO PRN (20:30)
[2019-07-15] MEDS: hydrOXYzine HCl 25 MG Tab PO PRN ×5 (00:07→23:39)
[2019-07-15] MEDS: Heparin Sodium 100 Units/ML 3 ML Syringe IVPUSH SCH ×4 (00:07→17:30)
[2019-07-15] MEDS: Morphine 15 MG Tab PO PRN ×4 (00:07→23:39)
[2019-07-15] MEDS: Sodium Chloride 0.9% 10 ML Syringe FLUSH SCH ×4 (00:08→17:30)
[2019-07-15] MEDS: Ampicillin/Sulbactam Na 3 GM in Sodium Chloride 0.9% 100 ML IV SCH ×4 (05:44→23:37)
[2019-07-15] MEDS: Sodium Chloride 0.9% 10 ML Syringe IV PRN ×3 (05:45→23:37)
[2019-07-15] MEDS: Loratadine 10 MG Tab PO SCH (08:53)
[2019-07-15] MEDS: Losartan 50 MG Tab PO SCH (08:53)
[2019-07-15] MEDS: Ferrous Sulfate 325 MG Tab PO SCH (08:54)
[2019-07-15] MEDS: Folic Acid 1 MG Tab PO SCH (08:54)
[2019-07-15] MEDS: Aspirin 81 MG Tab.EC PO SCH ×2 (08:55→20:08)
[2019-07-15] MEDS: metFORMIN 500 MG Tab PO SCH ×2 (08:55→17:29)
[2019-07-15] MEDS: Hydrochlorothiazide 25 MG Tab PO SCH (08:55)
[2019-07-15] MEDS: Potassium Chloride 20 MEQ Tab.ER PO SCH (08:56)
[2019-07-15] MEDS: Metoprolol Tartrate 25 MG Tab PO SCH ×2 (08:56→20:08)
[2019-07-15] MEDS: Gabapentin 300 MG Cap PO SCH ×3 (08:57→20:08)
[2019-07-15] MEDS: rOPINIRole 0.5 MG Tab PO SCH ×2 (08:57→20:08)
[2019-07-15] MEDS: Multivitamins with Iron/Calcium/Folic Acid/Minerals Tab PO SCH (08:59)
[2019-07-15] MEDS: Timolol Maleate 0.5% Ophth Soln 5 ML Bottle EYEBOTH SCH ×2 (09:01→20:07)
[2019-07-15] MEDS: Calcium Carbonate/Vitamin D3 1250 MG-200 Unit Tab PO SCH ×2 (09:01→20:08)
[2019-07-15] MEDS: atorvaSTATin 10 MG Tab PO SCH (20:07)
[2019-07-15] MEDS: Latanoprost 0.005% Ophth Soln 2.5 ML Bottle EYEBOTH SCH (20:07)
[2019-07-15] MEDS: Cyclobenzaprine 10 MG Tab PO PRN (20:08)
[2019-07-16] MEDS: Sodium Chloride 0.9% 10 ML Syringe FLUSH SCH ×4 (00:20→18:07)
[2019-07-16] MEDS: Heparin Sodium 100 Units/ML 3 ML Syringe IVPUSH SCH ×4 (00:20→18:07)
[2019-07-16] MEDS: hydrOXYzine HCl 25 MG Tab PO PRN ×2 (05:41→20:59)
[2019-07-16] MEDS: Sodium Chloride 0.9% 10 ML Syringe IV PRN (05:41)
[2019-07-16] MEDS: Ampicillin/Sulbactam Na 3 GM in Sodium Chloride 0.9% 100 ML IV SCH ×3 (05:41→18:07)
[2019-07-16] MEDS: Multivitamins with Iron/Calcium/Folic Acid/Minerals Tab PO SCH (08:46)
[2019-07-16] MEDS: metFORMIN 500 MG Tab PO SCH ×2 (08:46→18:09)
[2019-07-16] MEDS: rOPINIRole 0.5 MG Tab PO SCH ×2 (08:47→20:52)
[2019-07-16] MEDS: Ferrous Sulfate 325 MG Tab PO SCH (08:47)
[2019-07-16] MEDS: Aspirin 81 MG Tab.EC PO SCH ×2 (08:48→20:53)
[2019-07-16] MEDS: Metoprolol Tartrate 25 MG Tab PO SCH ×2 (08:48→21:37)
[2019-07-16] MEDS: Folic Acid 1 MG Tab PO SCH (08:48)
[2019-07-16] MEDS: Loratadine 10 MG Tab PO SCH (08:48)
[2019-07-16] MEDS: Calcium Carbonate/Vitamin D3 1250 MG-200 Unit Tab PO SCH ×2 (08:48→20:54)
[2019-07-16] MEDS: Potassium Chloride 20 MEQ Tab.ER PO SCH (08:50)
[2019-07-16] MEDS: Gabapentin 300 MG Cap PO SCH ×3 (08:50→20:53)
[2019-07-16] MEDS: Losartan 50 MG Tab PO SCH (08:51)
[2019-07-16] MEDS: Timolol Maleate 0.5% Ophth Soln 5 ML Bottle EYEBOTH SCH ×2 (08:52→20:55)
[2019-07-16] MEDS: Hydrochlorothiazide 25 MG Tab PO SCH (12:19)
[2019-07-16] MEDS: Latanoprost 0.005% Ophth Soln 2.5 ML Bottle EYEBOTH SCH (20:51)
[2019-07-16] MEDS: Morphine 15 MG Tab PO PRN (20:59)
[2019-07-16] MEDS: atorvaSTATin 10 MG Tab PO SCH (21:37)
[2019-07-17] MEDS: Ampicillin/Sulbactam Na 3 GM in Sodium Chloride 0.9% 100 ML IV SCH ×4 (00:10→18:10)
[2019-07-17] MEDS: Sodium Chloride 0.9% 10 ML Syringe FLUSH SCH ×4 (00:23→18:13)
[2019-07-17] MEDS: Heparin Sodium 100 Units/ML 3 ML Syringe IVPUSH SCH ×4 (00:23→18:13)
[2019-07-17] MEDS: Hydrochlorothiazide 25 MG Tab PO SCH (08:40)
[2019-07-17] MEDS: Gabapentin 300 MG Cap PO SCH ×3 (09:41→20:20)
[2019-07-17] MEDS: Losartan 50 MG Tab PO SCH (09:41)
[2019-07-17] MEDS: Folic Acid 1 MG Tab PO SCH (09:42)
[2019-07-17] MEDS: Metoprolol Tartrate 25 MG Tab PO SCH ×2 (09:42→20:19)
[2019-07-17] MEDS: Ferrous Sulfate 325 MG Tab PO SCH (09:43)
[2019-07-17] MEDS: rOPINIRole 0.5 MG Tab PO SCH ×2 (09:44→20:21)
[2019-07-17] MEDS: Loratadine 10 MG Tab PO SCH (09:44)
[2019-07-17] MEDS: Potassium Chloride 20 MEQ Tab.ER PO SCH (09:44)
[2019-07-17] MEDS: Aspirin 81 MG Tab.EC PO SCH ×2 (09:44→20:21)
[2019-07-17] MEDS: metFORMIN 500 MG Tab PO SCH ×2 (09:44→18:07)
[2019-07-17] MEDS: Calcium Carbonate/Vitamin D3 1250 MG-200 Unit Tab PO SCH ×2 (09:44→20:20)
[2019-07-17] MEDS: Multivitamins with Iron/Calcium/Folic Acid/Minerals Tab PO SCH (09:45)
[2019-07-17] MEDS: Timolol Maleate 0.5% Ophth Soln 5 ML Bottle EYEBOTH SCH ×2 (09:46→20:22)
[2019-07-17] MEDS: Morphine 15 MG Tab PO PRN ×2 (13:03→20:17)
[2019-07-17] MEDS: hydrOXYzine HCl 25 MG Tab PO PRN ×2 (13:03→20:18)
[2019-07-17] MEDS ORDERED: Ampicillin/Sulbactam Na 3 GM Vial ONE (18:07)
[2019-07-17] MEDS: atorvaSTATin 10 MG Tab PO SCH (20:19)
[2019-07-17] MEDS: Latanoprost 0.005% Ophth Soln 2.5 ML Bottle EYEBOTH SCH (20:22)
[2019-07-18] MEDS: Heparin Sodium 100 Units/ML 3 ML Syringe IVPUSH SCH ×4 (00:02→17:29)
[2019-07-18] MEDS: Sodium Chloride 0.9% 10 ML Syringe FLUSH SCH ×4 (00:02→17:29)
[2019-07-18] MEDS: Sodium Chloride 0.9% 10 ML Syringe IV PRN ×2 (05:39→23:27)
[2019-07-18] MEDS: Ampicillin/Sulbactam Na 3 GM in Sodium Chloride 0.9% 100 ML IV SCH ×6 (05:39→23:27)
[2019-07-18] MEDS: hydrOXYzine HCl 25 MG Tab PO PRN ×3 (08:19→23:28)
[2019-07-18] MEDS: Morphine 15 MG Tab PO PRN ×3 (08:19→23:27)
[2019-07-18] MEDS: Ferrous Sulfate 325 MG Tab PO SCH (08:20)
[2019-07-18] MEDS: rOPINIRole 0.5 MG Tab PO SCH ×2 (08:20→19:39)
[2019-07-18] MEDS: metFORMIN 500 MG Tab PO SCH ×2 (08:20→17:21)
[2019-07-18] MEDS: Aspirin 81 MG Tab.EC PO SCH ×2 (08:20→19:39)
[2019-07-18] MEDS: Hydrochlorothiazide 25 MG Tab PO SCH (08:20)
[2019-07-18] MEDS: Metoprolol Tartrate 25 MG Tab PO SCH ×2 (08:21→19:40)
[2019-07-18] MEDS: Multivitamins with Iron/Calcium/Folic Acid/Minerals Tab PO SCH (08:21)
[2019-07-18] MEDS: Folic Acid 1 MG Tab PO SCH (08:21)
[2019-07-18] MEDS: Gabapentin 300 MG Cap PO SCH ×3 (08:21→19:39)
[2019-07-18] MEDS: Calcium Carbonate/Vitamin D3 1250 MG-200 Unit Tab PO SCH ×2 (08:21→19:40)
[2019-07-18] MEDS: Potassium Chloride 20 MEQ Tab.ER PO SCH (08:21)
[2019-07-18] MEDS: Loratadine 10 MG Tab PO SCH (08:22)
[2019-07-18] MEDS: Timolol Maleate 0.5% Ophth Soln 5 ML Bottle EYEBOTH SCH ×2 (08:22→19:41)
[2019-07-18] MEDS: Losartan 50 MG Tab PO SCH (08:22)
[2019-07-18] MEDS: Cyclobenzaprine 10 MG Tab PO PRN (19:40)
[2019-07-18] MEDS: atorvaSTATin 10 MG Tab PO SCH (19:40)
[2019-07-18] MEDS: Latanoprost 0.005% Ophth Soln 2.5 ML Bottle EYEBOTH SCH (19:41)
[2019-07-19] MEDS: Heparin Sodium 100 Units/ML 3 ML Syringe IVPUSH SCH ×4 (00:15→18:57)
[2019-07-19] MEDS: Sodium Chloride 0.9% 10 ML Syringe FLUSH SCH ×4 (00:15→18:56)
[2019-07-19] MEDS: Sodium Chloride 0.9% 10 ML Syringe IV PRN (05:44)
[2019-07-19] MEDS: hydrOXYzine HCl 25 MG Tab PO PRN ×3 (05:44→18:22)
[2019-07-19] MEDS: Ampicillin/Sulbactam Na 3 GM in Sodium Chloride 0.9% 100 ML IV SCH ×3 (05:44→18:22)
[2019-07-19] MEDS: metFORMIN 500 MG Tab PO SCH ×2 (07:51→18:22)
[2019-07-19] MEDS: Ferrous Sulfate 325 MG Tab PO SCH (07:51)
[2019-07-19] MEDS: Calcium Carbonate/Vitamin D3 1250 MG-200 Unit Tab PO SCH ×2 (07:51→20:37)
[2019-07-19] MEDS: Metoprolol Tartrate 25 MG Tab PO SCH ×2 (07:52→20:43)
[2019-07-19] MEDS: Multivitamins with Iron/Calcium/Folic Acid/Minerals Tab PO SCH (07:52)
[2019-07-19] MEDS: Losartan 50 MG Tab PO SCH (07:53)
[2019-07-19] MEDS: Aspirin 81 MG Tab.EC PO SCH ×2 (07:54→20:38)
[2019-07-19] MEDS: Loratadine 10 MG Tab PO SCH (07:54)
[2019-07-19] MEDS: Hydrochlorothiazide 25 MG Tab PO SCH (07:55)
[2019-07-19] MEDS: Gabapentin 300 MG Cap PO SCH ×3 (07:55→20:36)
[2019-07-19] MEDS: Folic Acid 1 MG Tab PO SCH (07:55)
[2019-07-19] MEDS: Potassium Chloride 20 MEQ Tab.ER PO SCH (07:55)
[2019-07-19] MEDS: rOPINIRole 0.5 MG Tab PO SCH ×2 (07:56→20:37)
[2019-07-19] MEDS: Timolol Maleate 0.5% Ophth Soln 5 ML Bottle EYEBOTH SCH ×2 (07:57→20:45)
[2019-07-19] MEDS: Morphine 15 MG Tab PO PRN ×2 (12:23→18:21)
[2019-07-19] MEDS: Latanoprost 0.005% Ophth Soln 2.5 ML Bottle EYEBOTH SCH (20:34)
[2019-07-19] MEDS: atorvaSTATin 10 MG Tab PO SCH (20:35)
[2019-07-20] MEDS: hydrOXYzine HCl 25 MG Tab PO PRN ×2 (00:12→18:26)
[2019-07-20] MEDS: Morphine 15 MG Tab PO PRN ×2 (00:12→18:26)
[2019-07-20] MEDS: Sodium Chloride 0.9% 10 ML Syringe FLUSH SCH ×4 (00:13→18:27)
[2019-07-20] MEDS: Heparin Sodium 100 Units/ML 3 ML Syringe IVPUSH SCH ×4 (00:13→18:27)
[2019-07-20] MEDS: Ampicillin/Sulbactam Na 3 GM in Sodium Chloride 0.9% 100 ML IV SCH ×4 (00:13→17:47)
[2019-07-20] MEDS: Ferrous Sulfate 325 MG Tab PO SCH (08:56)
[2019-07-20] MEDS: Multivitamins with Iron/Calcium/Folic Acid/Minerals Tab PO SCH (08:57)
[2019-07-20] MEDS: metFORMIN 500 MG Tab PO SCH ×2 (08:57→17:51)
[2019-07-20] MEDS: Calcium Carbonate/Vitamin D3 1250 MG-200 Unit Tab PO SCH ×2 (08:57→19:39)
[2019-07-20] MEDS: Hydrochlorothiazide 25 MG Tab PO SCH (08:57)
[2019-07-20] MEDS: Losartan 50 MG Tab PO SCH (08:57)
[2019-07-20] MEDS: Aspirin 81 MG Tab.EC PO SCH ×2 (08:57→19:40)
[2019-07-20] MEDS: Loratadine 10 MG Tab PO SCH (08:57)
[2019-07-20] MEDS: Potassium Chloride 20 MEQ Tab.ER PO SCH (08:58)
[2019-07-20] MEDS: Folic Acid 1 MG Tab PO SCH (08:58)
[2019-07-20] MEDS: Metoprolol Tartrate 25 MG Tab PO SCH ×2 (08:58→19:38)
[2019-07-20] MEDS: rOPINIRole 0.5 MG Tab PO SCH ×2 (08:58→19:37)
[2019-07-20] MEDS: Gabapentin 300 MG Cap PO SCH ×3 (08:58→19:39)
[2019-07-20] MEDS: Timolol Maleate 0.5% Ophth Soln 5 ML Bottle EYEBOTH SCH ×2 (09:02→19:40)
[2019-07-20] MEDS: Heparin Sodium 100 Units/ML 3 ML Syringe IVPUSH PRN (11:41)
[2019-07-20] MEDS: Sodium Chloride 0.9% 10 ML Syringe IV PRN (11:42)
[2019-07-20] MEDS: Latanoprost 0.005% Ophth Soln 2.5 ML Bottle EYEBOTH SCH (19:37)
[2019-07-20] MEDS: atorvaSTATin 10 MG Tab PO SCH (19:39)
[2019-07-21] MEDS: Ampicillin/Sulbactam Na 3 GM in Sodium Chloride 0.9% 100 ML IV SCH ×5 (00:29→23:25)
[2019-07-21] MEDS: Heparin Sodium 100 Units/ML 3 ML Syringe IVPUSH SCH ×5 (00:30→23:34)
[2019-07-21] MEDS: Sodium Chloride 0.9% 10 ML Syringe FLUSH SCH ×5 (00:30→23:34)
[2019-07-21] MEDS: Morphine 15 MG Tab PO PRN ×3 (00:31→23:33)
[2019-07-21] MEDS: hydrOXYzine HCl 25 MG Tab PO PRN ×3 (00:32→23:33)
[2019-07-21] MEDS: Losartan 50 MG Tab PO SCH (08:22)
[2019-07-21] MEDS: Gabapentin 300 MG Cap PO SCH ×3 (08:23→19:43)
[2019-07-21] MEDS: Hydrochlorothiazide 25 MG Tab PO SCH (08:23)
[2019-07-21] MEDS: Folic Acid 1 MG Tab PO SCH (08:23)
[2019-07-21] MEDS: Metoprolol Tartrate 25 MG Tab PO SCH ×2 (08:23→19:42)
[2019-07-21] MEDS: Calcium Carbonate/Vitamin D3 1250 MG-200 Unit Tab PO SCH ×2 (08:23→19:43)
[2019-07-21] MEDS: Potassium Chloride 20 MEQ Tab.ER PO SCH (08:23)
[2019-07-21] MEDS: Ferrous Sulfate 325 MG Tab PO SCH (08:24)
[2019-07-21] MEDS: Multivitamins with Iron/Calcium/Folic Acid/Minerals Tab PO SCH (08:24)
[2019-07-21] MEDS: rOPINIRole 0.5 MG Tab PO SCH ×2 (08:24→19:42)
[2019-07-21] MEDS: Aspirin 81 MG Tab.EC PO SCH ×2 (08:24→19:42)
[2019-07-21] MEDS: Loratadine 10 MG Tab PO SCH (08:24)
[2019-07-21] MEDS: Timolol Maleate 0.5% Ophth Soln 5 ML Bottle EYEBOTH SCH ×2 (08:24→19:44)
[2019-07-21] MEDS: metFORMIN 500 MG Tab PO SCH ×2 (08:24→17:33)
[2019-07-21] MEDS: atorvaSTATin 10 MG Tab PO SCH (19:42)
[2019-07-21] MEDS: Latanoprost 0.005% Ophth Soln 2.5 ML Bottle EYEBOTH SCH (19:43)
[2019-07-22] MEDS: Sodium Chloride 0.9% 10 ML Syringe FLUSH SCH ×3 (05:41→17:41)
[2019-07-22] MEDS: Ampicillin/Sulbactam Na 3 GM in Sodium Chloride 0.9% 100 ML IV SCH ×3 (05:41→17:41)
[2019-07-22] MEDS: Heparin Sodium 100 Units/ML 3 ML Syringe IVPUSH SCH ×3 (05:41→17:41)
[2019-07-22] MEDS: Timolol Maleate 0.5% Ophth Soln 5 ML Bottle EYEBOTH SCH ×2 (08:08→20:15)
[2019-07-22] MEDS: Calcium Carbonate/Vitamin D3 1250 MG-200 Unit Tab PO SCH ×2 (08:08→20:11)
[2019-07-22] MEDS: Losartan 50 MG Tab PO SCH (08:08)
[2019-07-22] MEDS: rOPINIRole 0.5 MG Tab PO SCH ×2 (08:09→20:10)
[2019-07-22] MEDS: Hydrochlorothiazide 25 MG Tab PO SCH (08:09)
[2019-07-22] MEDS: Gabapentin 300 MG Cap PO SCH ×3 (08:09→20:11)
[2019-07-22] MEDS: Multivitamins with Iron/Calcium/Folic Acid/Minerals Tab PO SCH (08:10)
[2019-07-22] MEDS: Aspirin 81 MG Tab.EC PO SCH ×2 (08:10→20:10)
[2019-07-22] MEDS: Folic Acid 1 MG Tab PO SCH (08:10)
[2019-07-22] MEDS: Potassium Chloride 20 MEQ Tab.ER PO SCH (08:10)
[2019-07-22] MEDS: Metoprolol Tartrate 25 MG Tab PO SCH ×2 (08:10→20:11)
[2019-07-22] MEDS: Loratadine 10 MG Tab PO SCH (08:11)
[2019-07-22] MEDS: Ferrous Sulfate 325 MG Tab PO SCH (08:11)
[2019-07-22] MEDS: metFORMIN 500 MG Tab PO SCH ×2 (08:11→17:41)
[2019-07-22] MEDS: Acetaminophen 500 MG Tab PO PRN (08:16)
[2019-07-22] MEDS: atorvaSTATin 10 MG Tab PO SCH (20:11)
[2019-07-22] MEDS: Latanoprost 0.005% Ophth Soln 2.5 ML Bottle EYEBOTH SCH (20:15)
[2019-07-22] MEDS: Morphine 15 MG Tab PO PRN (20:20)
[2019-07-22] MEDS: hydrOXYzine HCl 25 MG Tab PO PRN (20:21)
[2019-07-23] MEDS: Ampicillin/Sulbactam Na 3 GM in Sodium Chloride 0.9% 100 ML IV SCH ×4 (00:48→17:57)
[2019-07-23] MEDS: Sodium Chloride 0.9% 10 ML Syringe FLUSH SCH ×4 (00:49→17:58)
[2019-07-23] MEDS: Heparin Sodium 100 Units/ML 3 ML Syringe IVPUSH SCH ×4 (00:49→17:58)
[2019-07-23] MEDS: Morphine 15 MG Tab PO PRN ×2 (06:06→17:57)
[2019-07-23] MEDS: hydrOXYzine HCl 25 MG Tab PO PRN ×2 (06:07→17:57)
[2019-07-23] MEDS: Losartan 50 MG Tab PO SCH (07:53)
[2019-07-23] MEDS: Calcium Carbonate/Vitamin D3 1250 MG-200 Unit Tab PO SCH ×2 (07:53→19:48)
[2019-07-23] MEDS: Loratadine 10 MG Tab PO SCH (07:53)
[2019-07-23] MEDS: Potassium Chloride 20 MEQ Tab.ER PO SCH (07:53)
[2019-07-23] MEDS: Gabapentin 300 MG Cap PO SCH ×3 (07:53→19:48)
[2019-07-23] MEDS: Ferrous Sulfate 325 MG Tab PO SCH (07:53)
[2019-07-23] MEDS: metFORMIN 500 MG Tab PO SCH ×2 (07:53→17:58)
[2019-07-23] MEDS: Folic Acid 1 MG Tab PO SCH (07:54)
[2019-07-23] MEDS: Hydrochlorothiazide 25 MG Tab PO SCH (07:54)
[2019-07-23] MEDS: Aspirin 81 MG Tab.EC PO SCH ×2 (07:54→19:50)
[2019-07-23] MEDS: rOPINIRole 0.5 MG Tab PO SCH ×2 (07:54→19:49)
[2019-07-23] MEDS: Multivitamins with Iron/Calcium/Folic Acid/Minerals Tab PO SCH (07:54)
[2019-07-23] MEDS: Metoprolol Tartrate 25 MG Tab PO SCH ×2 (07:54→19:50)
[2019-07-23] MEDS: Timolol Maleate 0.5% Ophth Soln 5 ML Bottle EYEBOTH SCH ×2 (07:55→19:51)
[2019-07-23] MEDS: atorvaSTATin 10 MG Tab PO SCH (19:48)
[2019-07-23] MEDS: Cyclobenzaprine 10 MG Tab PO PRN (19:50)
[2019-07-23] MEDS: Latanoprost 0.005% Ophth Soln 2.5 ML Bottle EYEBOTH SCH (19:51)
[2019-07-24] MEDS: Sodium Chloride 0.9% 10 ML Syringe FLUSH SCH ×4 (00:36→18:35)
[2019-07-24] MEDS: Heparin Sodium 100 Units/ML 3 ML Syringe IVPUSH SCH ×4 (00:36→18:34)
[2019-07-24] MEDS: Ampicillin/Sulbactam Na 3 GM in Sodium Chloride 0.9% 100 ML IV SCH ×6 (05:44→23:29)
[2019-07-24] MEDS: hydrOXYzine HCl 25 MG Tab PO PRN ×4 (05:49→23:32)
[2019-07-24] MEDS: Sodium Chloride 0.9% 10 ML Syringe IV PRN ×4 (05:50→23:29)
[2019-07-24] MEDS: Losartan 50 MG Tab PO SCH (08:34)
[2019-07-24] MEDS: Calcium Carbonate/Vitamin D3 1250 MG-200 Unit Tab PO SCH ×2 (08:39→19:45)
[2019-07-24] MEDS: Ferrous Sulfate 325 MG Tab PO SCH (08:40)
[2019-07-24] MEDS: Folic Acid 1 MG Tab PO SCH (08:40)
[2019-07-24] MEDS: rOPINIRole 0.5 MG Tab PO SCH ×2 (08:40→19:44)
[2019-07-24] MEDS: Gabapentin 300 MG Cap PO SCH ×3 (08:40→19:45)
[2019-07-24] MEDS: Multivitamins with Iron/Calcium/Folic Acid/Minerals Tab PO SCH (08:40)
[2019-07-24] MEDS: Potassium Chloride 20 MEQ Tab.ER PO SCH (08:40)
[2019-07-24] MEDS: Hydrochlorothiazide 25 MG Tab PO SCH (08:40)
[2019-07-24] MEDS: Aspirin 81 MG Tab.EC PO SCH ×2 (08:41→19:45)
[2019-07-24] MEDS: Loratadine 10 MG Tab PO SCH (08:41)
[2019-07-24] MEDS: Metoprolol Tartrate 25 MG Tab PO SCH ×2 (08:41→19:45)
[2019-07-24] MEDS: metFORMIN 500 MG Tab PO SCH ×2 (08:42→17:59)
[2019-07-24] MEDS: Timolol Maleate 0.5% Ophth Soln 5 ML Bottle EYEBOTH SCH ×2 (08:45→19:46)
[2019-07-24] MEDS: Morphine 15 MG Tab PO PRN ×3 (18:04→23:31)
[2019-07-24] MEDS: atorvaSTATin 10 MG Tab PO SCH (19:45)
[2019-07-24] MEDS: Cyclobenzaprine 10 MG Tab PO PRN (19:45)
[2019-07-24] MEDS: Latanoprost 0.005% Ophth Soln 2.5 ML Bottle EYEBOTH SCH (19:47)
[2019-07-25] MEDS: Heparin Sodium 100 Units/ML 3 ML Syringe IVPUSH SCH ×4 (00:20→18:14)
[2019-07-25] MEDS: Sodium Chloride 0.9% 10 ML Syringe FLUSH SCH ×4 (00:20→18:41)
[2019-07-25] MEDS: Ampicillin/Sulbactam Na 3 GM in Sodium Chloride 0.9% 100 ML IV SCH ×4 (05:36→23:41)
[2019-07-25] MEDS: Sodium Chloride 0.9% 10 ML Syringe IV PRN ×3 (05:36→23:42)
[2019-07-25] MEDS: hydrOXYzine HCl 25 MG Tab PO PRN ×3 (05:41→23:44)
[2019-07-25] MEDS: Losartan 50 MG Tab PO SCH (08:09)
[2019-07-25] MEDS: Multivitamins with Iron/Calcium/Folic Acid/Minerals Tab PO SCH (08:09)
[2019-07-25] MEDS: Ferrous Sulfate 325 MG Tab PO SCH (08:09)
[2019-07-25] MEDS: rOPINIRole 0.5 MG Tab PO SCH ×2 (08:10→19:44)
[2019-07-25] MEDS: Folic Acid 1 MG Tab PO SCH (08:10)
[2019-07-25] MEDS: Potassium Chloride 20 MEQ Tab.ER PO SCH (08:11)
[2019-07-25] MEDS: metFORMIN 500 MG Tab PO SCH ×2 (08:11→18:10)
[2019-07-25] MEDS: Metoprolol Tartrate 25 MG Tab PO SCH ×2 (08:11→19:45)
[2019-07-25] MEDS: Calcium Carbonate/Vitamin D3 1250 MG-200 Unit Tab PO SCH ×2 (08:12→19:45)
[2019-07-25] MEDS: Aspirin 81 MG Tab.EC PO SCH ×2 (08:12→19:44)
[2019-07-25] MEDS: Loratadine 10 MG Tab PO SCH (08:12)
[2019-07-25] MEDS: Hydrochlorothiazide 25 MG Tab PO SCH (08:12)
[2019-07-25] MEDS: Gabapentin 300 MG Cap PO SCH ×3 (08:12→19:44)
[2019-07-25] MEDS: Timolol Maleate 0.5% Ophth Soln 5 ML Bottle EYEBOTH SCH ×2 (08:17→19:46)
[2019-07-25] MEDS: Morphine 15 MG Tab PO PRN ×2 (18:10→23:44)
[2019-07-25] MEDS: atorvaSTATin 10 MG Tab PO SCH (19:44)
[2019-07-25] MEDS: Cyclobenzaprine 10 MG Tab PO PRN (19:46)
[2019-07-25] MEDS: Latanoprost 0.005% Ophth Soln 2.5 ML Bottle EYEBOTH SCH (19:46)
[2019-07-26] MEDS: Sodium Chloride 0.9% 10 ML Syringe FLUSH SCH ×4 (00:20→18:14)
[2019-07-26] MEDS: Heparin Sodium 100 Units/ML 3 ML Syringe IVPUSH SCH ×4 (00:20→18:14)
[2019-07-26] MEDS: Sodium Chloride 0.9% 10 ML Syringe IV PRN ×3 (05:37→23:47)
[2019-07-26] MEDS: Ampicillin/Sulbactam Na 3 GM in Sodium Chloride 0.9% 100 ML IV SCH ×4 (05:37→23:47)
[2019-07-26] MEDS: hydrOXYzine HCl 25 MG Tab PO PRN ×3 (05:37→23:48)
[2019-07-26] MEDS: Losartan 50 MG Tab PO SCH (08:18)
[2019-07-26] MEDS: rOPINIRole 0.5 MG Tab PO SCH ×2 (08:19→19:37)
[2019-07-26] MEDS: metFORMIN 500 MG Tab PO SCH ×2 (08:19→18:09)
[2019-07-26] MEDS: Calcium Carbonate/Vitamin D3 1250 MG-200 Unit Tab PO SCH ×2 (08:19→19:36)
[2019-07-26] MEDS: Folic Acid 1 MG Tab PO SCH (08:19)
[2019-07-26] MEDS: Potassium Chloride 20 MEQ Tab.ER PO SCH (08:20)
[2019-07-26] MEDS: Loratadine 10 MG Tab PO SCH (08:21)
[2019-07-26] MEDS: Aspirin 81 MG Tab.EC PO SCH ×2 (08:21→19:36)
[2019-07-26] MEDS: Metoprolol Tartrate 25 MG Tab PO SCH ×2 (08:21→19:37)
[2019-07-26] MEDS: Multivitamins with Iron/Calcium/Folic Acid/Minerals Tab PO SCH (08:22)
[2019-07-26] MEDS: Gabapentin 300 MG Cap PO SCH ×3 (08:22→19:36)
[2019-07-26] MEDS: Hydrochlorothiazide 25 MG Tab PO SCH (08:22)
[2019-07-26] MEDS: Ferrous Sulfate 325 MG Tab PO SCH (08:22)
[2019-07-26] MEDS: Timolol Maleate 0.5% Ophth Soln 5 ML Bottle EYEBOTH SCH ×2 (08:28→19:41)
[2019-07-26] MEDS: Morphine 15 MG Tab PO PRN ×2 (18:12→23:47)
[2019-07-26] MEDS: atorvaSTATin 10 MG Tab PO SCH (19:36)
[2019-07-26] MEDS: Cyclobenzaprine 10 MG Tab PO PRN (19:37)
[2019-07-26] MEDS: Latanoprost 0.005% Ophth Soln 2.5 ML Bottle EYEBOTH SCH (19:41)
[2019-07-27] MEDS: Heparin Sodium 100 Units/ML 3 ML Syringe IVPUSH SCH ×4 (00:20→18:24)
[2019-07-27] MEDS: Sodium Chloride 0.9% 10 ML Syringe FLUSH SCH ×4 (00:20→18:24)
[2019-07-27] MEDS: Ampicillin/Sulbactam Na 3 GM in Sodium Chloride 0.9% 100 ML IV SCH ×4 (05:55→23:41)
[2019-07-27] MEDS: Sodium Chloride 0.9% 10 ML Syringe IV PRN ×3 (05:55→23:41)
[2019-07-27] MEDS: hydrOXYzine HCl 25 MG Tab PO PRN ×4 (06:00→23:46)
[2019-07-27] MEDS: Gabapentin 300 MG Cap PO SCH ×3 (07:40→19:57)
[2019-07-27] MEDS: Multivitamins with Iron/Calcium/Folic Acid/Minerals Tab PO SCH (07:41)
[2019-07-27] MEDS: Metoprolol Tartrate 25 MG Tab PO SCH ×2 (07:41→19:56)
[2019-07-27] MEDS: Aspirin 81 MG Tab.EC PO SCH ×2 (07:41→19:57)
[2019-07-27] MEDS: Folic Acid 1 MG Tab PO SCH (07:41)
[2019-07-27] MEDS: rOPINIRole 0.5 MG Tab PO SCH ×2 (07:41→19:57)
[2019-07-27] MEDS: metFORMIN 500 MG Tab PO SCH ×2 (07:42→18:23)
[2019-07-27] MEDS: Hydrochlorothiazide 25 MG Tab PO SCH (07:42)
[2019-07-27] MEDS: Loratadine 10 MG Tab PO SCH (07:42)
[2019-07-27] MEDS: Calcium Carbonate/Vitamin D3 1250 MG-200 Unit Tab PO SCH ×2 (07:42→19:57)
[2019-07-27] MEDS: Losartan 50 MG Tab PO SCH (07:42)
[2019-07-27] MEDS: Ferrous Sulfate 325 MG Tab PO SCH (07:42)
[2019-07-27] MEDS: Potassium Chloride 20 MEQ Tab.ER PO SCH (07:42)
[2019-07-27] MEDS: Timolol Maleate 0.5% Ophth Soln 5 ML Bottle EYEBOTH SCH ×2 (07:42→19:58)
[2019-07-27] MEDS: Morphine 15 MG Tab PO PRN ×2 (18:23→23:50)
[2019-07-27] MEDS: atorvaSTATin 10 MG Tab PO SCH (19:57)
[2019-07-27] MEDS: Cyclobenzaprine 10 MG Tab PO PRN (19:57)
[2019-07-27] MEDS: Latanoprost 0.005% Ophth Soln 2.5 ML Bottle EYEBOTH SCH (19:58)
[2019-07-28] MEDS: Sodium Chloride 0.9% 10 ML Syringe FLUSH SCH ×4 (00:24→18:12)
[2019-07-28] MEDS: Heparin Sodium 100 Units/ML 3 ML Syringe IVPUSH SCH ×4 (00:24→18:12)
[2019-07-28] MEDS: Ampicillin/Sulbactam Na 3 GM in Sodium Chloride 0.9% 100 ML IV SCH ×4 (05:44→23:39)
[2019-07-28] MEDS: Sodium Chloride 0.9% 10 ML Syringe IV PRN ×3 (05:44→23:39)
[2019-07-28] MEDS: hydrOXYzine HCl 25 MG Tab PO PRN ×3 (05:46→23:42)
[2019-07-28] MEDS: Gabapentin 300 MG Cap PO SCH ×3 (08:13→20:01)
[2019-07-28] MEDS: Potassium Chloride 20 MEQ Tab.ER PO SCH (08:13)
[2019-07-28] MEDS: metFORMIN 500 MG Tab PO SCH ×2 (08:14→18:11)
[2019-07-28] MEDS: rOPINIRole 0.5 MG Tab PO SCH ×2 (08:14→20:01)
[2019-07-28] MEDS: Folic Acid 1 MG Tab PO SCH (08:14)
[2019-07-28] MEDS: Aspirin 81 MG Tab.EC PO SCH ×2 (08:15→20:02)
[2019-07-28] MEDS: Calcium Carbonate/Vitamin D3 1250 MG-200 Unit Tab PO SCH ×2 (08:15→20:02)
[2019-07-28] MEDS: Hydrochlorothiazide 25 MG Tab PO SCH (08:15)
[2019-07-28] MEDS: Ferrous Sulfate 325 MG Tab PO SCH (08:15)
[2019-07-28] MEDS: Losartan 50 MG Tab PO SCH (08:16)
[2019-07-28] MEDS: Metoprolol Tartrate 25 MG Tab PO SCH ×2 (08:17→20:02)
[2019-07-28] MEDS: Multivitamins with Iron/Calcium/Folic Acid/Minerals Tab PO SCH (08:18)
[2019-07-28] MEDS: Timolol Maleate 0.5% Ophth Soln 5 ML Bottle EYEBOTH SCH ×2 (09:32→20:08)
[2019-07-28] MEDS: Loratadine 10 MG Tab PO SCH (09:34)
[2019-07-28] MEDS: Morphine 15 MG Tab PO PRN ×2 (18:16→23:42)
[2019-07-28] MEDS: atorvaSTATin 10 MG Tab PO SCH (20:01)
[2019-07-28] MEDS: Cyclobenzaprine 10 MG Tab PO PRN (20:02)
[2019-07-28] MEDS: Latanoprost 0.005% Ophth Soln 2.5 ML Bottle EYEBOTH SCH (20:08)
[2019-07-29] MEDS: Sodium Chloride 0.9% 10 ML Syringe FLUSH SCH ×4 (00:20→18:13)
[2019-07-29] MEDS: Heparin Sodium 100 Units/ML 3 ML Syringe IVPUSH SCH ×4 (00:20→18:13)
[2019-07-29] MEDS: Ampicillin/Sulbactam Na 3 GM in Sodium Chloride 0.9% 100 ML IV SCH ×4 (05:48→23:52)
[2019-07-29] MEDS: Sodium Chloride 0.9% 10 ML Syringe IV PRN ×2 (05:49→23:53)
[2019-07-29] MEDS: hydrOXYzine HCl 25 MG Tab PO PRN ×3 (05:49→23:53)
[2019-07-29] MEDS: Losartan 50 MG Tab PO SCH (08:31)
[2019-07-29] MEDS: Ferrous Sulfate 325 MG Tab PO SCH (08:31)
[2019-07-29] MEDS: Aspirin 81 MG Tab.EC PO SCH ×2 (08:31→19:43)
[2019-07-29] MEDS: Potassium Chloride 20 MEQ Tab.ER PO SCH (08:31)
[2019-07-29] MEDS: Calcium Carbonate/Vitamin D3 1250 MG-200 Unit Tab PO SCH ×2 (08:32→19:42)
[2019-07-29] MEDS: Metoprolol Tartrate 25 MG Tab PO SCH ×2 (08:32→19:42)
[2019-07-29] MEDS: Multivitamins with Iron/Calcium/Folic Acid/Minerals Tab PO SCH (08:33)
[2019-07-29] MEDS: Hydrochlorothiazide 25 MG Tab PO SCH (08:33)
[2019-07-29] MEDS: Loratadine 10 MG Tab PO SCH (08:33)
[2019-07-29] MEDS: rOPINIRole 0.5 MG Tab PO SCH ×2 (08:33→19:41)
[2019-07-29] MEDS: metFORMIN 500 MG Tab PO SCH ×2 (08:33→18:00)
[2019-07-29] MEDS: Gabapentin 300 MG Cap PO SCH ×3 (08:33→19:42)
[2019-07-29] MEDS: Folic Acid 1 MG Tab PO SCH (08:33)
[2019-07-29] MEDS: Timolol Maleate 0.5% Ophth Soln 5 ML Bottle EYEBOTH SCH ×2 (08:38→19:43)
[2019-07-29] MEDS: Morphine 15 MG Tab PO PRN ×2 (18:01→23:53)
[2019-07-29] MEDS: atorvaSTATin 10 MG Tab PO SCH (19:42)
[2019-07-29] MEDS: Latanoprost 0.005% Ophth Soln 2.5 ML Bottle EYEBOTH SCH (19:43)
[2019-07-29] MEDS: Cyclobenzaprine 10 MG Tab PO PRN (19:43)
[2019-07-30] MEDS: Sodium Chloride 0.9% 10 ML Syringe FLUSH SCH ×4 (00:28→18:15)
[2019-07-30] MEDS: Heparin Sodium 100 Units/ML 3 ML Syringe IVPUSH SCH ×4 (00:29→18:15)
[2019-07-30] MEDS: Ampicillin/Sulbactam Na 3 GM in Sodium Chloride 0.9% 100 ML IV SCH (05:44)
[2019-07-30] MEDS: Sodium Chloride 0.9% 10 ML Syringe IV PRN (05:45)
[2019-07-30] MEDS: hydrOXYzine HCl 25 MG Tab PO PRN ×2 (05:48→18:05)
[2019-07-30] MEDS: Losartan 50 MG Tab PO SCH (07:49)
[2019-07-30] MEDS: metFORMIN 500 MG Tab PO SCH ×2 (07:50→18:05)
[2019-07-30] MEDS: Hydrochlorothiazide 25 MG Tab PO SCH (07:50)
[2019-07-30] MEDS: rOPINIRole 0.5 MG Tab PO SCH ×2 (07:51→19:29)
[2019-07-30] MEDS: Metoprolol Tartrate 25 MG Tab PO SCH ×2 (07:51→19:29)
[2019-07-30] MEDS: Potassium Chloride 20 MEQ Tab.ER PO SCH (07:51)
[2019-07-30] MEDS: Folic Acid 1 MG Tab PO SCH (07:51)
[2019-07-30] MEDS: Gabapentin 300 MG Cap PO SCH ×3 (07:52→19:31)
[2019-07-30] MEDS: Aspirin 81 MG Tab.EC PO SCH ×2 (07:52→19:30)
[2019-07-30] MEDS: Calcium Carbonate/Vitamin D3 1250 MG-200 Unit Tab PO SCH ×2 (07:52→19:30)
[2019-07-30] MEDS: Ferrous Sulfate 325 MG Tab PO SCH (07:52)
[2019-07-30] MEDS: Multivitamins with Iron/Calcium/Folic Acid/Minerals Tab PO SCH (07:52)
[2019-07-30] MEDS: Loratadine 10 MG Tab PO SCH (07:52)
[2019-07-30] MEDS: Timolol Maleate 0.5% Ophth Soln 5 ML Bottle EYEBOTH SCH ×2 (07:57→19:31)
[2019-07-30] MEDS: Ampicillin/Sulbactam Na 3 GM Vial IVPUSH SCH ×2 (12:00→18:05)
[2019-07-30] MEDS: Morphine 15 MG Tab PO PRN (18:05)
[2019-07-30] MEDS: atorvaSTATin 10 MG Tab PO SCH (19:30)
[2019-07-30] MEDS: Cyclobenzaprine 10 MG Tab PO PRN (19:30)
[2019-07-30] MEDS: Latanoprost 0.005% Ophth Soln 2.5 ML Bottle EYEBOTH SCH (19:31)
[2019-07-31] MEDS: Ampicillin/Sulbactam Na 3 GM Vial IVPUSH SCH ×4 (00:15→18:04)
[2019-07-31] MEDS: Heparin Sodium 100 Units/ML 3 ML Syringe IVPUSH SCH ×4 (00:20→18:04)
[2019-07-31] MEDS: Sodium Chloride 0.9% 10 ML Syringe IV PRN ×2 (00:20→06:28)
[2019-07-31] MEDS: hydrOXYzine HCl 25 MG Tab PO PRN ×3 (00:20→18:10)
[2019-07-31] MEDS: Sodium Chloride 0.9% 10 ML Syringe FLUSH SCH ×4 (00:30→18:11)
[2019-07-31] MEDS: Morphine 15 MG Tab PO PRN ×2 (01:19→18:10)
[2019-07-31] MEDS: Calcium Carbonate/Vitamin D3 1250 MG-200 Unit Tab PO SCH ×2 (08:02→20:44)
[2019-07-31] MEDS: Folic Acid 1 MG Tab PO SCH (08:02)
[2019-07-31] MEDS: Gabapentin 300 MG Cap PO SCH ×3 (08:03→20:43)
[2019-07-31] MEDS: Potassium Chloride 20 MEQ Tab.ER PO SCH (08:03)
[2019-07-31] MEDS: Aspirin 81 MG Tab.EC PO SCH ×2 (08:03→20:45)
[2019-07-31] MEDS: metFORMIN 500 MG Tab PO SCH ×2 (08:03→18:05)
[2019-07-31] MEDS: Metoprolol Tartrate 25 MG Tab PO SCH ×2 (08:04→20:43)
[2019-07-31] MEDS: Losartan 50 MG Tab PO SCH (08:08)
[2019-07-31] MEDS: Hydrochlorothiazide 25 MG Tab PO SCH (08:08)
[2019-07-31] MEDS: Multivitamins with Iron/Calcium/Folic Acid/Minerals Tab PO SCH (08:08)
[2019-07-31] MEDS: Timolol Maleate 0.5% Ophth Soln 5 ML Bottle EYEBOTH SCH ×2 (08:09→20:49)
[2019-07-31] MEDS: rOPINIRole 0.5 MG Tab PO SCH ×2 (08:09→20:44)
[2019-07-31] MEDS: Loratadine 10 MG Tab PO SCH (08:45)
[2019-07-31] MEDS: Ferrous Sulfate 325 MG Tab PO SCH (08:45)
[2019-07-31] MEDS: atorvaSTATin 10 MG Tab PO SCH (20:42)
[2019-07-31] MEDS: Latanoprost 0.005% Ophth Soln 2.5 ML Bottle EYEBOTH SCH (20:49)
[2019-08-01] MEDS: Ampicillin/Sulbactam Na 3 GM Vial IVPUSH SCH ×4 (00:37→17:48)
[2019-08-01] MEDS: Sodium Chloride 0.9% 10 ML Syringe FLUSH SCH ×4 (00:46→17:49)
[2019-08-01] MEDS: Heparin Sodium 100 Units/ML 3 ML Syringe IVPUSH SCH ×4 (00:47→17:48)
[2019-08-01] MEDS: hydrOXYzine HCl 25 MG Tab PO PRN ×2 (00:50→17:49)
[2019-08-01] MEDS: Morphine 15 MG Tab PO PRN ×2 (00:50→17:49)
[2019-08-01] MEDS: Hydrochlorothiazide 25 MG Tab PO SCH (08:15)
[2019-08-01] MEDS: Gabapentin 300 MG Cap PO SCH ×3 (08:15→19:21)
[2019-08-01] MEDS: Multivitamins with Iron/Calcium/Folic Acid/Minerals Tab PO SCH (08:15)
[2019-08-01] MEDS: Calcium Carbonate/Vitamin D3 1250 MG-200 Unit Tab PO SCH ×2 (08:15→19:21)
[2019-08-01] MEDS: Folic Acid 1 MG Tab PO SCH (08:15)
[2019-08-01] MEDS: Potassium Chloride 20 MEQ Tab.ER PO SCH (08:16)
[2019-08-01] MEDS: Metoprolol Tartrate 25 MG Tab PO SCH ×2 (08:16→19:21)
[2019-08-01] MEDS: Ferrous Sulfate 325 MG Tab PO SCH (08:16)
[2019-08-01] MEDS: metFORMIN 500 MG Tab PO SCH ×2 (08:16→17:51)
[2019-08-01] MEDS: rOPINIRole 0.5 MG Tab PO SCH ×2 (08:17→19:21)
[2019-08-01] MEDS: Aspirin 81 MG Tab.EC PO SCH ×2 (08:18→19:21)
[2019-08-01] MEDS: Loratadine 10 MG Tab PO SCH (08:18)
[2019-08-01] MEDS: Losartan 50 MG Tab PO SCH (08:18)
[2019-08-01] MEDS: Timolol Maleate 0.5% Ophth Soln 5 ML Bottle EYEBOTH SCH ×2 (08:19→19:22)
[2019-08-01] MEDS: atorvaSTATin 10 MG Tab PO SCH (19:20)
[2019-08-01] MEDS: Latanoprost 0.005% Ophth Soln 2.5 ML Bottle EYEBOTH SCH (19:22)
[2019-08-02] MEDS: Ampicillin/Sulbactam Na 3 GM Vial IVPUSH SCH ×4 (00:09→18:25)
[2019-08-02] MEDS: Sodium Chloride 0.9% 10 ML Syringe FLUSH SCH ×4 (00:10→18:26)
[2019-08-02] MEDS: Heparin Sodium 100 Units/ML 3 ML Syringe IVPUSH SCH ×4 (00:10→18:26)
[2019-08-02] MEDS: Morphine 15 MG Tab PO PRN ×2 (00:11→18:27)
[2019-08-02] MEDS: hydrOXYzine HCl 25 MG Tab PO PRN ×2 (00:11→18:27)
[2019-08-02] MEDS: Hydrochlorothiazide 25 MG Tab PO SCH (08:25)
[2019-08-02] MEDS: Aspirin 81 MG Tab.EC PO SCH ×2 (08:25→20:03)
[2019-08-02] MEDS: Potassium Chloride 20 MEQ Tab.ER PO SCH (08:25)
[2019-08-02] MEDS: Multivitamins with Iron/Calcium/Folic Acid/Minerals Tab PO SCH (08:25)
[2019-08-02] MEDS: metFORMIN 500 MG Tab PO SCH ×2 (08:26→18:26)
[2019-08-02] MEDS: Calcium Carbonate/Vitamin D3 1250 MG-200 Unit Tab PO SCH ×2 (08:26→20:03)
[2019-08-02] MEDS: Metoprolol Tartrate 25 MG Tab PO SCH ×2 (08:26→20:01)
[2019-08-02] MEDS: Gabapentin 300 MG Cap PO SCH ×3 (08:26→20:03)
[2019-08-02] MEDS: Ferrous Sulfate 325 MG Tab PO SCH (08:26)
[2019-08-02] MEDS: Losartan 50 MG Tab PO SCH (08:28)
[2019-08-02] MEDS: Folic Acid 1 MG Tab PO SCH (08:28)
[2019-08-02] MEDS: rOPINIRole 0.5 MG Tab PO SCH ×2 (08:28→20:02)
[2019-08-02] MEDS: Loratadine 10 MG Tab PO SCH (08:28)
[2019-08-02] MEDS: Timolol Maleate 0.5% Ophth Soln 5 ML Bottle EYEBOTH SCH ×2 (08:29→20:03)
[2019-08-02] MEDS: atorvaSTATin 10 MG Tab PO SCH (20:03)
[2019-08-02] MEDS: Latanoprost 0.005% Ophth Soln 2.5 ML Bottle EYEBOTH SCH (20:03)
[2019-08-03] MEDS: Sodium Chloride 0.9% 10 ML Syringe FLUSH SCH ×4 (00:56→19:51)
[2019-08-03] MEDS: Ampicillin/Sulbactam Na 3 GM Vial IVPUSH SCH ×4 (00:56→17:43)
[2019-08-03] MEDS: Heparin Sodium 100 Units/ML 3 ML Syringe IVPUSH SCH ×4 (00:56→18:04)
[2019-08-03] MEDS: hydrOXYzine HCl 25 MG Tab PO PRN ×2 (01:06→17:42)
[2019-08-03] MEDS: Morphine 15 MG Tab PO PRN ×2 (01:06→17:41)
[2019-08-03] MEDS: Calcium Carbonate/Vitamin D3 1250 MG-200 Unit Tab PO SCH ×2 (07:56→19:46)
[2019-08-03] MEDS: rOPINIRole 0.5 MG Tab PO SCH ×2 (07:56→19:46)
[2019-08-03] MEDS: Hydrochlorothiazide 25 MG Tab PO SCH (07:57)
[2019-08-03] MEDS: Losartan 50 MG Tab PO SCH (07:57)
[2019-08-03] MEDS: Metoprolol Tartrate 25 MG Tab PO SCH ×2 (07:58→19:46)
[2019-08-03] MEDS: Aspirin 81 MG Tab.EC PO SCH ×2 (07:58→19:46)
[2019-08-03] MEDS: Potassium Chloride 20 MEQ Tab.ER PO SCH (07:59)
[2019-08-03] MEDS: Multivitamins with Iron/Calcium/Folic Acid/Minerals Tab PO SCH (07:59)
[2019-08-03] MEDS: Gabapentin 300 MG Cap PO SCH ×3 (08:00→19:46)
[2019-08-03] MEDS: metFORMIN 500 MG Tab PO SCH ×2 (08:00→17:37)
[2019-08-03] MEDS: Loratadine 10 MG Tab PO SCH (08:01)
[2019-08-03] MEDS: Ferrous Sulfate 325 MG Tab PO SCH (08:28)
[2019-08-03] MEDS: Folic Acid 1 MG Tab PO SCH (08:29)
[2019-08-03] MEDS: Timolol Maleate 0.5% Ophth Soln 5 ML Bottle EYEBOTH SCH ×2 (08:30→19:45)
--- NOTE | 2019-08-03 09:43 | CR ---
[id number] RAD/RAD Chest PA or AP 1V EXAM: FRONTAL CHEST INDICATION: CONFIRM PICC LOCATION. COMPARISON: None. DISCUSSION: Left upper extremity approach PICC placement tip overlying the expected location of the left brachiocephalic vein. Consider advancing 8 cm and performing a repeat radiograph. Mild subsegmental atelectasis or scarring the left lung base. IMPRESSION: 1. A left upper extremity PICC overlies the left brachiocephalic vein. Consider advancing the catheter and performing a repeat radiograph. Kyler Charles MD 08/03/19 0942 Thank you for allowing us to participate in the care of your patient.
[2019-08-03] MEDS: Sodium Chloride 0.9% 10 ML Syringe IV PRN (18:04)
[2019-08-03] MEDS: atorvaSTATin 10 MG Tab PO SCH (19:45)
[2019-08-03] MEDS: Latanoprost 0.005% Ophth Soln 2.5 ML Bottle EYEBOTH SCH (19:45)
[2019-08-04] MEDS: Morphine 15 MG Tab PO PRN ×2 (00:58→18:34)
[2019-08-04] MEDS: Ampicillin/Sulbactam Na 3 GM Vial IVPUSH SCH ×4 (00:58→18:05)
[2019-08-04] MEDS: hydrOXYzine HCl 25 MG Tab PO PRN ×2 (00:58→19:16)
[2019-08-04] MEDS: Sodium Chloride 0.9% 10 ML Syringe FLUSH SCH ×4 (00:59→18:05)
[2019-08-04] MEDS: Heparin Sodium 100 Units/ML 3 ML Syringe IVPUSH SCH ×4 (00:59→18:05)
[2019-08-04] MEDS: Multivitamins with Iron/Calcium/Folic Acid/Minerals Tab PO SCH (07:50)
[2019-08-04] MEDS: Ferrous Sulfate 325 MG Tab PO SCH (07:50)
[2019-08-04] MEDS: Loratadine 10 MG Tab PO SCH (07:50)
[2019-08-04] MEDS: Folic Acid 1 MG Tab PO SCH (07:50)
[2019-08-04] MEDS: Gabapentin 300 MG Cap PO SCH ×3 (07:50→19:17)
[2019-08-04] MEDS: metFORMIN 500 MG Tab PO SCH ×2 (07:50→18:05)
[2019-08-04] MEDS: rOPINIRole 0.5 MG Tab PO SCH ×2 (07:51→19:17)
[2019-08-04] MEDS: Aspirin 81 MG Tab.EC PO SCH ×2 (07:51→19:16)
[2019-08-04] MEDS: Hydrochlorothiazide 25 MG Tab PO SCH (07:51)
[2019-08-04] MEDS: Calcium Carbonate/Vitamin D3 1250 MG-200 Unit Tab PO SCH ×2 (07:51→19:18)
[2019-08-04] MEDS: Losartan 50 MG Tab PO SCH (07:52)
[2019-08-04] MEDS: Timolol Maleate 0.5% Ophth Soln 5 ML Bottle EYEBOTH SCH ×2 (07:52→19:18)
[2019-08-04] MEDS: Metoprolol Tartrate 25 MG Tab PO SCH ×2 (07:52→19:17)
[2019-08-04] MEDS: Potassium Chloride 20 MEQ Tab.ER PO SCH (07:53)
[2019-08-04] MEDS ORDERED: Fluconazole 100 MG Tab PO ONE (15:00)
[2019-08-04] MEDS: atorvaSTATin 10 MG Tab PO SCH (19:17)
[2019-08-04] MEDS: Latanoprost 0.005% Ophth Soln 2.5 ML Bottle EYEBOTH SCH (19:18)
[2019-08-05] MEDS: Ampicillin/Sulbactam Na 3 GM Vial IVPUSH SCH ×4 (00:24→18:21)
[2019-08-05] MEDS: Sodium Chloride 0.9% 10 ML Syringe FLUSH SCH ×4 (00:24→18:22)
[2019-08-05] MEDS: hydrOXYzine HCl 25 MG Tab PO PRN ×2 (00:25→18:21)
[2019-08-05] MEDS: Morphine 15 MG Tab PO PRN ×2 (00:25→18:21)
[2019-08-05] MEDS: Heparin Sodium 100 Units/ML 3 ML Syringe IVPUSH SCH ×4 (00:25→18:22)
[2019-08-05] MEDS: rOPINIRole 0.5 MG Tab PO SCH ×2 (07:52→19:37)
[2019-08-05] MEDS: Loratadine 10 MG Tab PO SCH (07:52)
[2019-08-05] MEDS: Ferrous Sulfate 325 MG Tab PO SCH (07:52)
[2019-08-05] MEDS: Calcium Carbonate/Vitamin D3 1250 MG-200 Unit Tab PO SCH ×2 (07:53→19:31)
[2019-08-05] MEDS: Potassium Chloride 20 MEQ Tab.ER PO SCH (07:53)
[2019-08-05] MEDS: Hydrochlorothiazide 25 MG Tab PO SCH (07:53)
[2019-08-05] MEDS: Aspirin 81 MG Tab.EC PO SCH ×2 (07:53→19:31)
[2019-08-05] MEDS: Multivitamins with Iron/Calcium/Folic Acid/Minerals Tab PO SCH (07:53)
[2019-08-05] MEDS: Folic Acid 1 MG Tab PO SCH (07:53)
[2019-08-05] MEDS: Gabapentin 300 MG Cap PO SCH ×3 (07:53→19:31)
[2019-08-05] MEDS: metFORMIN 500 MG Tab PO SCH ×2 (07:53→18:21)
[2019-08-05] MEDS: Metoprolol Tartrate 25 MG Tab PO SCH ×2 (07:55→19:31)
[2019-08-05] MEDS: Losartan 50 MG Tab PO SCH (07:56)
[2019-08-05] MEDS: Timolol Maleate 0.5% Ophth Soln 5 ML Bottle EYEBOTH SCH ×2 (07:56→19:30)
[2019-08-05] MEDS: Latanoprost 0.005% Ophth Soln 2.5 ML Bottle EYEBOTH SCH (19:30)
[2019-08-05] MEDS: atorvaSTATin 10 MG Tab PO SCH (19:31)
[2019-08-06] MEDS: Sodium Chloride 0.9% 10 ML Syringe FLUSH SCH ×4 (00:19→17:59)
[2019-08-06] MEDS: Ampicillin/Sulbactam Na 3 GM Vial IVPUSH SCH ×4 (00:19→17:59)
[2019-08-06] MEDS: Sodium Chloride 0.9% 10 ML Syringe IV PRN ×2 (00:19→06:18)
[2019-08-06] MEDS: Heparin Sodium 100 Units/ML 3 ML Syringe IVPUSH SCH ×4 (00:19→17:59)
[2019-08-06] MEDS: Morphine 15 MG Tab PO PRN ×2 (00:27→17:58)
[2019-08-06] MEDS: hydrOXYzine HCl 25 MG Tab PO PRN ×2 (00:27→17:58)
[2019-08-06] MEDS: rOPINIRole 0.5 MG Tab PO SCH ×2 (08:03→19:21)
[2019-08-06] MEDS: Aspirin 81 MG Tab.EC PO SCH ×2 (08:03→19:22)
[2019-08-06] MEDS: Gabapentin 300 MG Cap PO SCH ×3 (08:03→19:23)
[2019-08-06] MEDS: Metoprolol Tartrate 25 MG Tab PO SCH ×2 (08:03→19:28)
[2019-08-06] MEDS: Multivitamins with Iron/Calcium/Folic Acid/Minerals Tab PO SCH (08:03)
[2019-08-06] MEDS: Potassium Chloride 20 MEQ Tab.ER PO SCH (08:03)
[2019-08-06] MEDS: Losartan 50 MG Tab PO SCH (08:03)
[2019-08-06] MEDS: Folic Acid 1 MG Tab PO SCH (08:03)
[2019-08-06] MEDS: Hydrochlorothiazide 25 MG Tab PO SCH (08:03)
[2019-08-06] MEDS: Loratadine 10 MG Tab PO SCH (08:04)
[2019-08-06] MEDS: Timolol Maleate 0.5% Ophth Soln 5 ML Bottle EYEBOTH SCH ×2 (08:04→19:24)
[2019-08-06] MEDS: Ferrous Sulfate 325 MG Tab PO SCH (08:04)
[2019-08-06] MEDS: Calcium Carbonate/Vitamin D3 1250 MG-200 Unit Tab PO SCH ×2 (08:04→19:23)
[2019-08-06] MEDS: metFORMIN 500 MG Tab PO SCH ×2 (08:04→17:59)
[2019-08-06] MEDS: Latanoprost 0.005% Ophth Soln 2.5 ML Bottle EYEBOTH SCH (19:19)
[2019-08-06] MEDS: atorvaSTATin 10 MG Tab PO SCH (19:23)
[2019-08-07] MEDS: Ampicillin/Sulbactam Na 3 GM Vial IVPUSH SCH ×4 (00:13→17:28)
[2019-08-07] MEDS: Sodium Chloride 0.9% 10 ML Syringe FLUSH SCH ×4 (00:13→17:29)
[2019-08-07] MEDS: Sodium Chloride 0.9% 10 ML Syringe IV PRN ×2 (00:13→06:06)
[2019-08-07] MEDS: hydrOXYzine HCl 25 MG Tab PO PRN ×3 (00:14→17:28)
[2019-08-07] MEDS: Heparin Sodium 100 Units/ML 3 ML Syringe IVPUSH SCH ×4 (00:14→17:29)
[2019-08-07] MEDS: Morphine 15 MG Tab PO PRN ×2 (00:14→17:29)
[2019-08-07] MEDS: metFORMIN 500 MG Tab PO SCH ×2 (07:45→17:29)
[2019-08-07] MEDS: Potassium Chloride 20 MEQ Tab.ER PO SCH (07:46)
[2019-08-07] MEDS: Calcium Carbonate/Vitamin D3 1250 MG-200 Unit Tab PO SCH ×2 (07:46→19:28)
[2019-08-07] MEDS: Loratadine 10 MG Tab PO SCH (07:46)
[2019-08-07] MEDS: Losartan 50 MG Tab PO SCH (07:46)
[2019-08-07] MEDS: Ferrous Sulfate 325 MG Tab PO SCH (07:46)
[2019-08-07] MEDS: Metoprolol Tartrate 25 MG Tab PO SCH ×2 (07:47→19:29)
[2019-08-07] MEDS: Gabapentin 300 MG Cap PO SCH ×3 (07:47→19:28)
[2019-08-07] MEDS: Aspirin 81 MG Tab.EC PO SCH ×2 (07:47→19:28)
[2019-08-07] MEDS: Folic Acid 1 MG Tab PO SCH (07:47)
[2019-08-07] MEDS: rOPINIRole 0.5 MG Tab PO SCH ×2 (07:47→19:28)
[2019-08-07] MEDS: Timolol Maleate 0.5% Ophth Soln 5 ML Bottle EYEBOTH SCH ×2 (07:48→19:30)
[2019-08-07] MEDS: Hydrochlorothiazide 25 MG Tab PO SCH (07:48)
[2019-08-07] MEDS: Multivitamins with Iron/Calcium/Folic Acid/Minerals Tab PO SCH (07:48)
[2019-08-07] MEDS: Latanoprost 0.005% Ophth Soln 2.5 ML Bottle EYEBOTH SCH (19:27)
[2019-08-07] MEDS: atorvaSTATin 10 MG Tab PO SCH (19:27)
[2019-08-08] MEDS: Sodium Chloride 0.9% 10 ML Syringe FLUSH SCH ×5 (00:35→23:51)
[2019-08-08] MEDS: Sodium Chloride 0.9% 10 ML Syringe IV PRN ×3 (00:35→23:44)
[2019-08-08] MEDS: Ampicillin/Sulbactam Na 3 GM Vial IVPUSH SCH ×5 (00:35→23:44)
[2019-08-08] MEDS: Heparin Sodium 100 Units/ML 3 ML Syringe IVPUSH SCH ×5 (00:36→23:52)
[2019-08-08] MEDS: Morphine 15 MG Tab PO PRN ×3 (00:36→23:52)
[2019-08-08] MEDS: hydrOXYzine HCl 25 MG Tab PO PRN ×4 (00:37→23:52)
[2019-08-08] MEDS: rOPINIRole 0.5 MG Tab PO SCH ×2 (07:47→20:02)
[2019-08-08] MEDS: Potassium Chloride 20 MEQ Tab.ER PO SCH (07:47)
[2019-08-08] MEDS: Aspirin 81 MG Tab.EC PO SCH ×2 (07:47→20:04)
[2019-08-08] MEDS: Hydrochlorothiazide 25 MG Tab PO SCH (07:47)
[2019-08-08] MEDS: Multivitamins with Iron/Calcium/Folic Acid/Minerals Tab PO SCH (07:48)
[2019-08-08] MEDS: Gabapentin 300 MG Cap PO SCH ×3 (07:48→20:02)
[2019-08-08] MEDS: Folic Acid 1 MG Tab PO SCH (07:48)
[2019-08-08] MEDS: metFORMIN 500 MG Tab PO SCH ×2 (07:49→17:49)
[2019-08-08] MEDS: Loratadine 10 MG Tab PO SCH (07:49)
[2019-08-08] MEDS: Ferrous Sulfate 325 MG Tab PO SCH (07:49)
[2019-08-08] MEDS: Calcium Carbonate/Vitamin D3 1250 MG-200 Unit Tab PO SCH ×2 (07:50→20:03)
[2019-08-08] MEDS: Losartan 50 MG Tab PO SCH (07:58)
[2019-08-08] MEDS: Metoprolol Tartrate 25 MG Tab PO SCH ×2 (07:59→20:03)
[2019-08-08] MEDS: Timolol Maleate 0.5% Ophth Soln 5 ML Bottle EYEBOTH SCH ×2 (07:59→20:06)
[2019-08-08] MEDS: Cyclobenzaprine 10 MG Tab PO PRN (20:01)
[2019-08-08] MEDS: atorvaSTATin 10 MG Tab PO SCH (20:02)
[2019-08-08] MEDS: Latanoprost 0.005% Ophth Soln 2.5 ML Bottle EYEBOTH SCH (20:06)
[2019-08-09] MEDS: Sodium Chloride 0.9% 10 ML Syringe IV PRN (06:14)
[2019-08-09] MEDS: Sodium Chloride 0.9% 10 ML Syringe FLUSH SCH ×3 (06:14→17:50)
[2019-08-09] MEDS: Ampicillin/Sulbactam Na 3 GM Vial IVPUSH SCH ×3 (06:14→17:50)
[2019-08-09] MEDS: Heparin Sodium 100 Units/ML 3 ML Syringe IVPUSH SCH ×3 (06:16→17:50)
[2019-08-09] MEDS: hydrOXYzine HCl 25 MG Tab PO PRN ×3 (06:16→17:49)
[2019-08-09] MEDS: Folic Acid 1 MG Tab PO SCH (07:49)
[2019-08-09] MEDS: Losartan 50 MG Tab PO SCH (07:49)
[2019-08-09] MEDS: metFORMIN 500 MG Tab PO SCH ×2 (07:49→17:48)
[2019-08-09] MEDS: Potassium Chloride 20 MEQ Tab.ER PO SCH (07:49)
[2019-08-09] MEDS: rOPINIRole 0.5 MG Tab PO SCH ×2 (07:50→20:09)
[2019-08-09] MEDS: Calcium Carbonate/Vitamin D3 1250 MG-200 Unit Tab PO SCH ×2 (07:50→20:14)
[2019-08-09] MEDS: Gabapentin 300 MG Cap PO SCH ×3 (07:50→20:10)
[2019-08-09] MEDS: Metoprolol Tartrate 25 MG Tab PO SCH ×2 (07:50→20:19)
[2019-08-09] MEDS: Loratadine 10 MG Tab PO SCH (07:50)
[2019-08-09] MEDS: Ferrous Sulfate 325 MG Tab PO SCH (07:50)
[2019-08-09] MEDS: Hydrochlorothiazide 25 MG Tab PO SCH (07:50)
[2019-08-09] MEDS: Aspirin 81 MG Tab.EC PO SCH ×2 (07:50→20:12)
[2019-08-09] MEDS: Multivitamins with Iron/Calcium/Folic Acid/Minerals Tab PO SCH (07:50)
[2019-08-09] MEDS: Timolol Maleate 0.5% Ophth Soln 5 ML Bottle EYEBOTH SCH ×2 (07:53→20:14)
[2019-08-09] MEDS: Morphine 15 MG Tab PO PRN (17:49)
[2019-08-09] MEDS: Cyclobenzaprine 10 MG Tab PO PRN (20:07)
[2019-08-09] MEDS: atorvaSTATin 10 MG Tab PO SCH (20:12)
[2019-08-09] MEDS: Latanoprost 0.005% Ophth Soln 2.5 ML Bottle EYEBOTH SCH (20:13)
[2019-08-10] MEDS: Morphine 15 MG Tab PO PRN ×3 (00:18→23:47)
[2019-08-10] MEDS: Ampicillin/Sulbactam Na 3 GM Vial IVPUSH SCH ×5 (00:19→23:46)
[2019-08-10] MEDS: hydrOXYzine HCl 25 MG Tab PO PRN ×4 (00:19→23:47)
[2019-08-10] MEDS: Sodium Chloride 0.9% 10 ML Syringe FLUSH SCH ×5 (00:20→23:47)
[2019-08-10] MEDS: Heparin Sodium 100 Units/ML 3 ML Syringe IVPUSH SCH ×5 (00:40→23:46)
[2019-08-10] MEDS: Ferrous Sulfate 325 MG Tab PO SCH (08:13)
[2019-08-10] MEDS: Multivitamins with Iron/Calcium/Folic Acid/Minerals Tab PO SCH (08:14)
[2019-08-10] MEDS: Calcium Carbonate/Vitamin D3 1250 MG-200 Unit Tab PO SCH ×2 (08:14→19:59)
[2019-08-10] MEDS: Potassium Chloride 20 MEQ Tab.ER PO SCH (08:14)
[2019-08-10] MEDS: Aspirin 81 MG Tab.EC PO SCH ×2 (08:14→19:59)
[2019-08-10] MEDS: Folic Acid 1 MG Tab PO SCH (08:14)
[2019-08-10] MEDS: Loratadine 10 MG Tab PO SCH (08:14)
[2019-08-10] MEDS: Metoprolol Tartrate 25 MG Tab PO SCH ×2 (08:15→19:59)
[2019-08-10] MEDS: rOPINIRole 0.5 MG Tab PO SCH ×2 (08:15→19:58)
[2019-08-10] MEDS: Hydrochlorothiazide 25 MG Tab PO SCH (08:15)
[2019-08-10] MEDS: Losartan 50 MG Tab PO SCH (08:17)
[2019-08-10] MEDS: Gabapentin 300 MG Cap PO SCH ×3 (08:18→19:59)
[2019-08-10] MEDS: Timolol Maleate 0.5% Ophth Soln 5 ML Bottle EYEBOTH SCH ×2 (08:19→20:00)
[2019-08-10] MEDS: metFORMIN 500 MG Tab PO SCH ×2 (08:31→17:45)
[2019-08-10] MEDS: atorvaSTATin 10 MG Tab PO SCH (19:58)
[2019-08-10] MEDS: Cyclobenzaprine 10 MG Tab PO PRN (19:59)
[2019-08-10] MEDS: Latanoprost 0.005% Ophth Soln 2.5 ML Bottle EYEBOTH SCH (20:00)
[2019-08-10] MEDS: Sodium Chloride 0.9% 10 ML Syringe IV PRN (23:46)
[2019-08-11] MEDS: Sodium Chloride 0.9% 10 ML Syringe FLUSH SCH ×3 (06:11→18:07)
[2019-08-11] MEDS: Sodium Chloride 0.9% 10 ML Syringe IV PRN ×2 (06:11→18:05)
[2019-08-11] MEDS: Ampicillin/Sulbactam Na 3 GM Vial IVPUSH SCH ×3 (06:11→17:41)
[2019-08-11] MEDS: Heparin Sodium 100 Units/ML 3 ML Syringe IVPUSH SCH ×3 (06:12→18:07)
[2019-08-11] MEDS: hydrOXYzine HCl 25 MG Tab PO PRN ×2 (06:12→17:40)
[2019-08-11] MEDS: Potassium Chloride 20 MEQ Tab.ER PO SCH (08:32)
[2019-08-11] MEDS: metFORMIN 500 MG Tab PO SCH ×2 (08:32→17:40)
[2019-08-11] MEDS: Metoprolol Tartrate 25 MG Tab PO SCH ×2 (08:32→20:17)
[2019-08-11] MEDS: Losartan 50 MG Tab PO SCH (08:34)
[2019-08-11] MEDS: Ferrous Sulfate 325 MG Tab PO SCH (08:34)
[2019-08-11] MEDS: rOPINIRole 0.5 MG Tab PO SCH ×2 (08:34→20:16)
[2019-08-11] MEDS: Gabapentin 300 MG Cap PO SCH ×3 (08:34→20:16)
[2019-08-11] MEDS: Multivitamins with Iron/Calcium/Folic Acid/Minerals Tab PO SCH (08:35)
[2019-08-11] MEDS: Loratadine 10 MG Tab PO SCH (08:35)
[2019-08-11] MEDS: Folic Acid 1 MG Tab PO SCH (08:35)
[2019-08-11] MEDS: Hydrochlorothiazide 25 MG Tab PO SCH (08:35)
[2019-08-11] MEDS: Aspirin 81 MG Tab.EC PO SCH ×2 (08:35→20:16)
[2019-08-11] MEDS: Calcium Carbonate/Vitamin D3 1250 MG-200 Unit Tab PO SCH ×2 (08:37→20:43)
[2019-08-11] MEDS: Timolol Maleate 0.5% Ophth Soln 5 ML Bottle EYEBOTH SCH ×2 (08:37→20:44)
[2019-08-11] MEDS: Morphine 15 MG Tab PO PRN (17:41)
[2019-08-11] MEDS: Heparin Sodium 100 Units/ML 3 ML Syringe IVPUSH PRN (18:04)
[2019-08-11] MEDS: atorvaSTATin 10 MG Tab PO SCH (20:16)
[2019-08-11] MEDS: Latanoprost 0.005% Ophth Soln 2.5 ML Bottle EYEBOTH SCH (20:44)
[2019-08-12] MEDS: Ampicillin/Sulbactam Na 3 GM Vial IVPUSH SCH ×4 (00:24→17:47)
[2019-08-12] MEDS: Sodium Chloride 0.9% 10 ML Syringe FLUSH SCH ×4 (00:24→17:52)
[2019-08-12] MEDS: Heparin Sodium 100 Units/ML 3 ML Syringe IVPUSH SCH ×4 (00:42→17:48)
[2019-08-12] MEDS: Morphine 15 MG Tab PO PRN ×2 (00:43→17:49)
[2019-08-12] MEDS: hydrOXYzine HCl 25 MG Tab PO PRN ×3 (00:44→17:49)
[2019-08-12] MEDS: Gabapentin 300 MG Cap PO SCH ×3 (09:08→20:13)
[2019-08-12] MEDS: Calcium Carbonate/Vitamin D3 1250 MG-200 Unit Tab PO SCH ×2 (09:09→20:21)
[2019-08-12] MEDS: Multivitamins with Iron/Calcium/Folic Acid/Minerals Tab PO SCH (09:09)
[2019-08-12] MEDS: Potassium Chloride 20 MEQ Tab.ER PO SCH (09:09)
[2019-08-12] MEDS: Folic Acid 1 MG Tab PO SCH (09:10)
[2019-08-12] MEDS: metFORMIN 500 MG Tab PO SCH ×2 (09:10→17:48)
[2019-08-12] MEDS: Metoprolol Tartrate 25 MG Tab PO SCH ×2 (09:10→20:21)
[2019-08-12] MEDS: Losartan 50 MG Tab PO SCH (09:12)
[2019-08-12] MEDS: rOPINIRole 0.5 MG Tab PO SCH ×2 (09:12→20:13)
[2019-08-12] MEDS: Hydrochlorothiazide 25 MG Tab PO SCH (09:13)
[2019-08-12] MEDS: Loratadine 10 MG Tab PO SCH (09:13)
[2019-08-12] MEDS: Ferrous Sulfate 325 MG Tab PO SCH (09:13)
[2019-08-12] MEDS: Timolol Maleate 0.5% Ophth Soln 5 ML Bottle EYEBOTH SCH ×2 (09:13→20:18)
[2019-08-12] MEDS: Aspirin 81 MG Tab.EC PO SCH ×2 (09:13→20:15)
[2019-08-12] MEDS: atorvaSTATin 10 MG Tab PO SCH (20:13)
[2019-08-12] MEDS: Latanoprost 0.005% Ophth Soln 2.5 ML Bottle EYEBOTH SCH (20:20)
[2019-08-13] MEDS: Ampicillin/Sulbactam Na 3 GM Vial IVPUSH SCH ×5 (00:01→23:50)
[2019-08-13] MEDS: Morphine 15 MG Tab PO PRN ×2 (00:02→18:12)
[2019-08-13] MEDS: hydrOXYzine HCl 25 MG Tab PO PRN ×4 (00:03→23:52)
[2019-08-13] MEDS: Heparin Sodium 100 Units/ML 3 ML Syringe IVPUSH SCH ×4 (00:23→18:12)
[2019-08-13] MEDS: Sodium Chloride 0.9% 10 ML Syringe FLUSH SCH ×5 (06:07→23:50)
[2019-08-13] MEDS: Losartan 50 MG Tab PO SCH (07:39)
[2019-08-13] MEDS: Gabapentin 300 MG Cap PO SCH ×3 (07:40→20:11)
[2019-08-13] MEDS: metFORMIN 500 MG Tab PO SCH ×2 (07:40→18:11)
[2019-08-13] MEDS: Calcium Carbonate/Vitamin D3 1250 MG-200 Unit Tab PO SCH ×2 (07:40→20:15)
[2019-08-13] MEDS: Potassium Chloride 20 MEQ Tab.ER PO SCH (07:40)
[2019-08-13] MEDS: Multivitamins with Iron/Calcium/Folic Acid/Minerals Tab PO SCH (07:40)
[2019-08-13] MEDS: Ferrous Sulfate 325 MG Tab PO SCH (07:40)
[2019-08-13] MEDS: Loratadine 10 MG Tab PO SCH (07:41)
[2019-08-13] MEDS: Aspirin 81 MG Tab.EC PO SCH ×2 (07:41→20:12)
[2019-08-13] MEDS: Metoprolol Tartrate 25 MG Tab PO SCH ×2 (07:41→20:15)
[2019-08-13] MEDS: Folic Acid 1 MG Tab PO SCH (07:41)
[2019-08-13] MEDS: Hydrochlorothiazide 25 MG Tab PO SCH (07:42)
[2019-08-13] MEDS: rOPINIRole 0.5 MG Tab PO SCH ×2 (07:42→20:12)
[2019-08-13] MEDS: Timolol Maleate 0.5% Ophth Soln 5 ML Bottle EYEBOTH SCH ×2 (07:43→20:28)
[2019-08-13] MEDS: atorvaSTATin 10 MG Tab PO SCH (20:12)
[2019-08-13] MEDS: Latanoprost 0.005% Ophth Soln 2.5 ML Bottle EYEBOTH SCH (20:29)
[2019-08-14] MEDS: Morphine 15 MG Tab PO PRN ×3 (00:09→23:44)
[2019-08-14] MEDS: Heparin Sodium 100 Units/ML 3 ML Syringe IVPUSH SCH ×5 (00:14→23:43)
[2019-08-14] MEDS: Sodium Chloride 0.9% 10 ML Syringe FLUSH SCH ×4 (06:21→23:43)
[2019-08-14] MEDS: Ampicillin/Sulbactam Na 3 GM Vial IVPUSH SCH ×4 (06:22→23:43)
[2019-08-14] MEDS: hydrOXYzine HCl 25 MG Tab PO PRN ×3 (06:24→23:44)
[2019-08-14] MEDS: Potassium Chloride 20 MEQ Tab.ER PO SCH (08:21)
[2019-08-14] MEDS: Ferrous Sulfate 325 MG Tab PO SCH (08:21)
[2019-08-14] MEDS: Calcium Carbonate/Vitamin D3 1250 MG-200 Unit Tab PO SCH ×2 (08:21→19:51)
[2019-08-14] MEDS: Losartan 50 MG Tab PO SCH (08:21)
[2019-08-14] MEDS: Metoprolol Tartrate 25 MG Tab PO SCH ×2 (08:21→19:51)
[2019-08-14] MEDS: metFORMIN 500 MG Tab PO SCH ×2 (08:21→18:00)
[2019-08-14] MEDS: Timolol Maleate 0.5% Ophth Soln 5 ML Bottle EYEBOTH SCH ×2 (08:21→19:52)
[2019-08-14] MEDS: Multivitamins with Iron/Calcium/Folic Acid/Minerals Tab PO SCH (08:22)
[2019-08-14] MEDS: Aspirin 81 MG Tab.EC PO SCH ×2 (08:22→19:50)
[2019-08-14] MEDS: Folic Acid 1 MG Tab PO SCH (08:22)
[2019-08-14] MEDS: Loratadine 10 MG Tab PO SCH (08:22)
[2019-08-14] MEDS: Hydrochlorothiazide 25 MG Tab PO SCH (08:22)
[2019-08-14] MEDS: rOPINIRole 0.5 MG Tab PO SCH ×2 (08:23→19:50)
[2019-08-14] MEDS: Gabapentin 300 MG Cap PO SCH ×3 (08:23→19:51)
[2019-08-14] MEDS: Sodium Chloride 0.9% 10 ML Syringe IV PRN ×2 (19:46→23:43)
[2019-08-14] MEDS: Cyclobenzaprine 10 MG Tab PO PRN (19:50)
[2019-08-14] MEDS: atorvaSTATin 10 MG Tab PO SCH (19:51)
[2019-08-14] MEDS: Latanoprost 0.005% Ophth Soln 2.5 ML Bottle EYEBOTH SCH (19:52)
[2019-08-15] MEDS: Sodium Chloride 0.9% 10 ML Syringe FLUSH SCH ×4 (05:52→23:47)
[2019-08-15] MEDS: Sodium Chloride 0.9% 10 ML Syringe IV PRN ×3 (05:52→23:47)
[2019-08-15] MEDS: Heparin Sodium 100 Units/ML 3 ML Syringe IVPUSH SCH ×4 (05:54→23:49)
[2019-08-15] MEDS: hydrOXYzine HCl 25 MG Tab PO PRN ×3 (05:54→23:49)
[2019-08-15] MEDS: Ampicillin/Sulbactam Na 3 GM Vial IVPUSH SCH ×4 (05:54→23:47)
[2019-08-15] MEDS: Losartan 50 MG Tab PO SCH (08:10)
[2019-08-15] MEDS: Hydrochlorothiazide 25 MG Tab PO SCH (08:11)
[2019-08-15] MEDS: Aspirin 81 MG Tab.EC PO SCH ×2 (08:11→20:04)
[2019-08-15] MEDS: Ferrous Sulfate 325 MG Tab PO SCH (08:11)
[2019-08-15] MEDS: Potassium Chloride 20 MEQ Tab.ER PO SCH (08:11)
[2019-08-15] MEDS: Gabapentin 300 MG Cap PO SCH ×3 (08:11→20:03)
[2019-08-15] MEDS: Multivitamins with Iron/Calcium/Folic Acid/Minerals Tab PO SCH (08:11)
[2019-08-15] MEDS: Calcium Carbonate/Vitamin D3 1250 MG-200 Unit Tab PO SCH ×2 (08:11→20:04)
[2019-08-15] MEDS: Timolol Maleate 0.5% Ophth Soln 5 ML Bottle EYEBOTH SCH ×2 (08:11→20:05)
[2019-08-15] MEDS: rOPINIRole 0.5 MG Tab PO SCH ×2 (08:11→20:03)
[2019-08-15] MEDS: Folic Acid 1 MG Tab PO SCH (08:11)
[2019-08-15] MEDS: Metoprolol Tartrate 25 MG Tab PO SCH ×2 (08:11→20:04)
[2019-08-15] MEDS: Loratadine 10 MG Tab PO SCH (08:11)
[2019-08-15] MEDS: metFORMIN 500 MG Tab PO SCH ×2 (08:11→18:07)
[2019-08-15] MEDS: Morphine 15 MG Tab PO PRN ×2 (18:07→23:49)
[2019-08-15] MEDS: atorvaSTATin 10 MG Tab PO SCH (20:04)
[2019-08-15] MEDS: Cyclobenzaprine 10 MG Tab PO PRN (20:04)
[2019-08-15] MEDS: Latanoprost 0.005% Ophth Soln 2.5 ML Bottle EYEBOTH SCH (20:06)
[2019-08-16] MEDS: Ampicillin/Sulbactam Na 3 GM Vial IVPUSH SCH ×3 (05:48→17:51)
[2019-08-16] MEDS: Sodium Chloride 0.9% 10 ML Syringe IV PRN (05:48)
[2019-08-16] MEDS: hydrOXYzine HCl 25 MG Tab PO PRN (05:48)
[2019-08-16] MEDS: Heparin Sodium 100 Units/ML 3 ML Syringe IVPUSH SCH ×3 (05:48→17:52)
[2019-08-16] MEDS: Sodium Chloride 0.9% 10 ML Syringe FLUSH SCH ×3 (06:50→17:52)
[2019-08-16] MEDS: Multivitamins with Iron/Calcium/Folic Acid/Minerals Tab PO SCH (07:30)
[2019-08-16] MEDS: Losartan 50 MG Tab PO SCH (07:30)
[2019-08-16] MEDS: Loratadine 10 MG Tab PO SCH (07:30)
[2019-08-16] MEDS: Aspirin 81 MG Tab.EC PO SCH ×2 (07:31→19:19)
[2019-08-16] MEDS: metFORMIN 500 MG Tab PO SCH ×2 (07:31→17:51)
[2019-08-16] MEDS: Folic Acid 1 MG Tab PO SCH (07:31)
[2019-08-16] MEDS: Gabapentin 300 MG Cap PO SCH ×3 (07:31→19:19)
[2019-08-16] MEDS: Calcium Carbonate/Vitamin D3 1250 MG-200 Unit Tab PO SCH ×2 (07:31→19:17)
[2019-08-16] MEDS: Potassium Chloride 20 MEQ Tab.ER PO SCH (07:31)
[2019-08-16] MEDS: rOPINIRole 0.5 MG Tab PO SCH ×2 (07:31→19:18)
[2019-08-16] MEDS: Ferrous Sulfate 325 MG Tab PO SCH (07:31)
[2019-08-16] MEDS: Timolol Maleate 0.5% Ophth Soln 5 ML Bottle EYEBOTH SCH ×2 (07:32→19:20)
[2019-08-16] MEDS: Metoprolol Tartrate 25 MG Tab PO SCH ×2 (07:32→19:17)
[2019-08-16] MEDS: Hydrochlorothiazide 25 MG Tab PO SCH (07:32)
--- NOTE | 2019-08-16 10:11 | DISCH ---
DISPOSITION: Home. HISTORY OF PRESENT ILLNESS: The patient was admitted to the swing bed unit at [facility] on 07/07/2019 status post left knee replacement. The patient required intense physical therapy as well as IV antibiotics due to the hardware infection of the left knee. Please see H & P for further details. REVIEW OF SYSTEMS: General: Negative. Skin: Negative. Respiratory: Negative. Cardiovascular: Negative. Neurologic: Negative. Abdomen: Negative. DISCHARGE PHYSICAL EXAMINATION: General Presentation: The patient is very pleasant. The patient is alert. The patient is cooperative. The patient is not in any acute distress. Skin: Warm, dry, and intact. The incision site over the left knee is healing very well. This area does not have any signs or symptoms of infection. Respiratory: Lungs are clear to auscultation. Cardiovascular: Regular rate and rhythm, no murmurs. Gastrointestinal: Bowel sounds are active x4. Abdomen is soft and nontender. Neurological: The patient is alert. No focal neurological deficits. The patient is alert and oriented x3. LABORATORY WORK: None. IMAGING STUDIES: None. CONSULTATIONS: Physical and Occupational Therapy. DISCHARGE MEDICATIONS: 1. Acetaminophen 1000 mg p.o. every 4 hours as needed. 2. Aspirin 81 mg 1 tablet p.o. twice daily. 3. Atorvastatin 20 mg 1 tablet p.o. daily at bedtime. 4. Calcium carbonate/vitamin D 1 tablet p.o. twice daily. 5. Clobetasol 1 application topically twice daily as needed. 6. Cyclobenzaprine 10 mg 1 tablet p.o. every 8 hours as needed. 7. Docusate sodium 2 tablets p.o. twice daily. 8. Ferrous sulfate 325 mg 1 tablet p.o. daily. 9. Folic acid 1 mg 1 tablet p.o. daily. 10.Gabapentin 300 mg 1 tablet p.o. 3 times daily. 11.Hydrochlorothiazide 25 mg 1 tablet p.o. daily. 12.Hydroxyzine 25 mg 1 tablet p.o. every 6 hours as needed. 13.Latanoprost 1 drop to both eyes at bedtime. 14.Loratadine 10 mg 1 tablet p.o. daily. 15.Losartan 150 mg 1 tablet p.o. daily. 16.Metformin 500 mg 1 tablet p.o. daily. 17.Metformin 250 mg 1 tablet p.o. daily at noon. 18.Metoprolol tartrate 12.5 mg 1 tablet p.o. twice daily. 19.Multivitamin with iron 1 tablet p.o. daily. 20.Potassium chloride 20 mEq 1 tablet p.o. daily. 21.Ropinirole 0.25 mg 1 tablet p.o. twice daily. 22.Timolol maleate 1 drop to both eyes twice daily. HOSPITAL COARSE: Patient remained hemodynamically stable and afebrile. Patient tolerated IV abx therapy without any problems. Abx therapy will be discontinued today. PICC line will be d/c'd today. No issues with bowel movements or urination. Patient participated well with therapy. No issues with diet. DISCHARGE DIAGNOSES: 1. Total left knee arthroplasty, stage I revision. 2. Infection of prosthetic knee joint. 3. History of total left knee arthroplasty on 03/24/2019. 4. 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 5. Diabetes mellitus type 2, on oral medication. 6. Hypertension associated with diabetes. 7. Hyperlipidemia secondary to type 2 diabetes. 8. Weakness. 9. Deconditioning. 10.Osteoarthritis. 11.Restless legs syndrome. 12.Gastroesophageal reflux disease. 13.Stress incontinence. PLAN: The patient will be discharged home on 08/17/2019. The patient does not need any home health care services as she is doing well. The patient is a full code. We will continue the patient on her current medications without any changes. The patient will continue with physical therapy as an outpatient, possibly through [facility]. I would like the patient to follow up with her primary care provider in 1 week on 08/24/2019 for a 1-week post hospital followup, sooner if any problems. The patient was discharged in hemodynamically stable condition. Note: This patient was seen and examined by me as an [facility] provider. TB: 08/16/2019 09:21:14 MODL: 08/16/2019 10:05:07 /[id number]
[2019-08-16] MEDS: atorvaSTATin 10 MG Tab PO SCH (19:17)
[2019-08-16] MEDS: Latanoprost 0.005% Ophth Soln 2.5 ML Bottle EYEBOTH SCH (19:20)
[2019-08-17] MEDS: Multivitamins with Iron/Calcium/Folic Acid/Minerals Tab PO SCH (07:44)
[2019-08-17] MEDS: Losartan 50 MG Tab PO SCH (07:44)
[2019-08-17] MEDS: metFORMIN 500 MG Tab PO SCH (07:44)
[2019-08-17] MEDS: Ferrous Sulfate 325 MG Tab PO SCH (07:44)
[2019-08-17] MEDS: Calcium Carbonate/Vitamin D3 1250 MG-200 Unit Tab PO SCH (07:44)
[2019-08-17] MEDS: Hydrochlorothiazide 25 MG Tab PO SCH (07:44)
[2019-08-17] MEDS: rOPINIRole 0.5 MG Tab PO SCH (07:44)
[2019-08-17] MEDS: Loratadine 10 MG Tab PO SCH (07:44)
[2019-08-17] MEDS: Gabapentin 300 MG Cap PO SCH (07:45)
[2019-08-17] MEDS: Aspirin 81 MG Tab.EC PO SCH (07:45)
[2019-08-17] MEDS: Folic Acid 1 MG Tab PO SCH (07:45)
[2019-08-17] MEDS: Potassium Chloride 20 MEQ Tab.ER PO SCH (07:45)
[2019-08-17] MEDS: Timolol Maleate 0.5% Ophth Soln 5 ML Bottle EYEBOTH SCH (07:45)
[2019-08-17] MEDS: Metoprolol Tartrate 25 MG Tab PO SCH (07:45)
== END 2019-08-17 09:10 | disposition home or self-care (01) | DRG 949 ==
LOC: VM.MS 11:23
PROVIDERS: ADMIT Nurse Practitioner Family; ATTEND Nurse Practitioner Family
DX: T84.54XD Infection and inflammatory reaction due to internal left knee prosthesis, subsequent encounter (principal); M00.062 Staphylococcal arthritis, left knee; M00.862 Arthritis due to other bacteria, left knee; Z47.1 Aftercare following joint replacement surgery; Z96.652 Presence of left artificial knee joint; B95.2 Enterococcus as the cause of diseases classified elsewhere; E11.9 Type 2 diabetes mellitus without complications; I10 Essential (primary) hypertension; E78.5 Hyperlipidemia, unspecified; M19.90 Unspecified osteoarthritis, unspecified site; G25.81 Restless legs syndrome; K21.9 Gastro-esophageal reflux disease without esophagitis; E66.9 Obesity, unspecified; B95.61 Methicillin susceptible Staphylococcus aureus infection as the cause of diseases classified elsewhere; N39.3 Stress incontinence (female) (male); Z79.899 Other long term (current) drug therapy; Z79.84 Long term (current) use of oral hypoglycemic drugs; Z79.82 Long term (current) use of aspirin; Z68.36 Body mass index [BMI] 36.0-36.9, adult
CPT/HCPCS: 36415; 71045; 82565; 82962; 84460; 85025; 97110-GP; 97161-GP; 97165-GO; A9270-GY; J0295; J1642; J7050